=== PATIENT | female | born 1960 | race Caucasian/White ===

== ENCOUNTER 2019-09-16 07:43 | Observation (INO) | payer MEDICAID, SELFPAY ==
[2019-09-16] VITALS (43 sets, daily range): BP systolic 127–192; BP diastolic 51–105; PULSE 48–79; RESP 11–49; TEMP 36.1–36.8; O2SAT 85–100; BMI 31.1
--- NOTE | ~2019-09-16 | US_ITS ---
EXAMINATION: US abdomen complete DATE: 09/16/2019 15:59 INDICATION: Epigastric abdominal pain. TECHNIQUE: Multiple grayscale and Doppler ultrasound images of the abdomen were obtained. COMPARISON: CT abdomen and pelvis 09/16/2019 FINDINGS: The visualized portions of the head, body, and tail of the pancreas are normal. Abdominal a lilliana is normal in caliber. Inferior vena cava is normal. The liver is normal without focal lesion. Th ere is normal flow in main portal vein. The gallbladder is absent. The common duct is normal and sandy ures 7 mm. The kidneys are normal in size. There are cysts in the right kidney measuring up to 1.7 cm . The spleen is normal in size. There is a 1.7 cm isoechoic mass in the spleen. IMPRESSION: 1. 1.7 cm mass in the spleen, most likely a benign mass such as granulomatous disease or hemangioma. Reviewed, dictated and finalized at location A. IMPRESSION: 1. 1.7 cm mass in the spleen, most likely a benign mass such as granulomatous d isease or hemangioma.
--- NOTE | ~2019-09-16 | XR_ITS ---
XR chest 1V portable DATE: 09/16/2019 09:20 INDICATION: Cough, shortness of breath, weakness TECHNIQUE: Portable upright AP chest on 09/16/2019 at 0921 hours COMPARISON: 06/26/2014 portable AP chest FINDINGS: Normal heart size. No pulmonary vascular congestion or pleural effusion is evident. No pneumothorax. There is suggestion of mild infiltrate or atelectasis in the lower lung zones. Removal of right Port-A-Cath catheter since 06/1999. Included skeletal structures are unremarkable. IMPRESSION: Mild infiltrate or atelectasis is suggested in the lower lung zones Reviewed, dictated and finalized at location A.
--- NOTE | ~2019-09-16 | CT_ITS ---
EXAMINATION: CTA chest abdomen pelvis DATE: 09/16/2019 09:37 INDICATION: Chest and epigastric/upper abdominal pain. Chest tightness. Shortness of breath. History of heart attack. Nausea, vomiting, diarrhea. TECHNIQUE: Computed tomography (CT) of the chest, abdomen, and pelvis was performed with 100 cc Omnip aque 350 intravenous contrast. Automated exposure control and iterative reconstruction technique were employed. Exam dose: 814.95 mGy-cm total exam DLP. COMPARISON: 09/16/2019 portable AP chest FINDINGS: CHEST CT: There is thoracic aortic calcification but no evidence of aneurysm or dissection. There is no evidence of pulmonary embolism. Normal heart size. No pericardial or pleural effusion. No hilar or mediastinal mass lesion or lymphadenopathy. Included thyroid gland appears normal. Moderate emphysematous changes are noted. There is minimal atelectasis in the lower lobes primarily. No pulmonary consolidation or suspicious p ulmonary mass lesion is evident. There is a small sliding hiatal hernia. ABDOMEN/PELVIS CT: Status post cholecystectomy. No bile duct or pancreatic duct dilatation. No hepatic space-occupying mass lesion. 1.5 x 1.9 cm hypoattenuating lesion of the spleen. Splenic size is within normal limits. No pancreati c mass lesion or calcification. 1.9 cm rounded mass of the lateral limb of the left adrenal gland. If there is no history of primary malignancy, this is likely an adrenal adenoma; adrenal metastasis is not excluded. Normal right adren al gland.. There are 2 right renal cysts measuring up to 1.8 cm maximal dimension. Approximately 6 x 9 mm left renal pelvic calculus with attenuation of 1013 Hounsfield units. There is atherosclerotic calcification of the abdominal aorta but no evidence of aneurysm or dissecti on. There is narrowing of the right external iliac artery and the right common femoral artery is occluded and reconstituted by collaterals. No intraperitoneal or retroperitoneal or pelvic mass lesion or adenopathy or ascites. The uterus, adnexal areas and urinary bladder are unremarkable. Normal appendix. Minimal diverticulosis of the left colon; no CT evidence of diverticulitis. No bowel obstruction, bowel wall thickening, pneumatosis or intraperitoneal free air. Small fat-containing umbilical hernia. Prominent degenerative disc disease at C5-6 and C6-7. Mild likely chronic compression fracture deformities of T6, T9 and T11. Degenerative disc disease at L5-S1. 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 Reviewed, dictated and finalized at location A. IMPRESSION: Emphysema Small sliding hiatal hernia Status post cholecystectomy Nonspecific 1.5 x 1.9 cm hypoattenuating lesion of the spleen, likely benign 1.9 cm mass of left adrenal gland Right renal cysts, largest 1.8 cm 6 x 9 mm left renal pelvic calculus Narrowing of right external iliac artery and occlusion of right common iliac ar [place], with reconstitution by collateral flow Minimal diverticulosis of left colon
--- NOTE | ~2019-09-16 | NM_ITS ---
EXAMINATION: NM fran stress w perfusion DATE: 09/19/2019 12:36 INDICATION: Chest pain. TECHNIQUE: Rest images were obtained following intravenous administration of 8.9 mCi Tc99m tetrofosmi n (Myoview). The patient was infused intravenously with Lexiscan (regadenoson). Then, 27.8 mCi Tc99m tetrofosmin (Myoview) was administered intravenously, and stress images were obtained. Data was recon structed into short axis and horizontal and vertical long axis SPECT images. Gated SPECT images were also obtained. COMPARISON: Chest CT 09/16/2019 FINDINGS: There is a small, mild, fixed perfusion defect involving apical lateral segment of left maxim tricle, consistent with infarct. No significant reversible component to suggest ischemia. There is no segmental wall motion abnormality. Left ventricular ejection fraction measures 68%. IMPRESSION: 1. Small area of mild infarct involving apical lateral segment of left ventricle. 2. Normal left ventricular ejection fraction measuring 68%. Reviewed, dictated and finalized at location A. IMPRESSION: 1. Small area of mild infarct involving apical lateral segment of left ventricl e. 2. Normal left ventricular ejection fraction measuring 68%.
--- NOTE | 2019-09-16 07:58 | ECG_ITS ---
Measurements Intervals [place] Rate: 54 P: 9 AL: 144 QRS: 2 QRSD: 84 T: 46 QT: 469 QTc: 445 Interpretive Statements SINUS BRADYCARDIA CANNOT RULE OUT SEPTAL INFARCT, AGE INDETERMINATE BORDERLINE ST ABNORMALITY- ANTEROLATERAL LEADS ABNORMAL ECG Electronically Signed On 09-16-2019 8:25:49 CDT by Afshin Patel D.O.
[2019-09-16 08:09] LABS: Basophils Percent Auto 0.2 % (0.2-1.2); Hematocrit 36.8 % (37.0-47.0); Hemoglobin 13.2 g/dL (12.0-15.0); Immature Granulocyte Absolute 0.05 K/mm3 (0.00-0.031); Immature Granulocyte Percent A 0.5 % (0-0.5); Lymphocytes Absolute Auto 0.99 K/mm3 (0.9-3.2); Lymphocytes Percent Auto 10.6 % (18.3-44.2); Mean Corpuscular HGB Conc 35.9 g/dl (32-36); Mean Corpuscular Hemoglobin 31.6 pg (26-34); Monocytes Absolute Auto 0.4 K/mm3 (0.1-0.6); Monocytes Percent Auto 4.3 % (2.6-8.5); Neutrophils Absolute Auto 7.8 K/mm3 (1.3-6.7); Neutrophils Percent Auto 84.4 % (45.5-73.1); Platelet Count Result 214 k/mm3 (150-375); Red Blood Count 4.18 M/mm3 (4.2-5.4); Red Cell Distribution Width 12.5 % (11.5-14.5); White Blood Count 9.3 K/mm3 (4.5-10.0)
[2019-09-16 08:20] LABS: Add Urine Microscopic? YES; Amorphous Sediment Urine Few; Appearance Urine Cloudy (Clear); Bacteria Urine Trace /hpf; Bilirubin Urine Negative (Negative); Blood Urine 2+ (Negative); Color Urine Yellow (Yellow); Glucose Urine UA Negative (Negative); Ketones Urine Negative (Negative); Leukocyte Esterase Ur 3+ LEU/UL (Negative); Mucus Urine Few /lpf; Nitrate Urine Negative (Negative); Protein Urine 1+ mg/dL (Negative); RBC Urine >75 /hpf (0-2); Specific Grav Ur 1.015 (1.001-1.035); Squamous Epithelial Cell Urine Few /hpf (Few); Urobilinogen Urine Negative mg/dL (<2.0); WBC Urine >75 /hpf
--- NOTE | 2019-09-16 08:24 | ED.ABDPAIN ---
HPI - Abdominal Pain General Chief Complaint: Abdominal Pain Stated Complaint: sob, chest pain, abd pain Time Seen by Provider: 09/16/19 08:05 Source: patient Mode of arrival: ambulatory Limitations: no limitations History of Present Illness HPI narrative: This patient is a 59 year old female who presents for evaluation of abdominal pain, nausea, vomiting and diarrhea. She states starting at 10 pm last night she develop upper abdominal pain, nausea, vomiting and diarrhea. She also reports at that time she had mid chest pain ,nonradiating. Her chest pain has resolved but she continues to have constant abdominal pain with nausea and vomiting. She is concerned she may be having a heart attack as she had similar symptoms 5 years ago. She has associated weakness and dizziness. She denies fever or chills. She also states she is having difficulty breathing. MD elicited complaint: abdominal pain Location: epigastric, LUQ and RUQ Exacerbating factors: nothing Relieving factors: nothing Associated symptoms: nausea, vomiting and diarrhea Related Data Home Medications Medication Instructions Recorded Confirmed alprazolam 1 mg PO BID PRN 09/16/19 09/16/19 anastrozole 1 mg PO DAILY 09/16/19 09/16/19 ascorbic acid (vitamin C) [Vitamin 1 g PO DAILY 09/16/19 09/16/19 C] aspirin 81 mg PO DAILY 09/16/19 09/16/19 bupropion HCl 150 mg PO DAILY 09/16/19 09/16/19 carvedilol 12.5 mg PO DAILY 09/16/19 09/16/19 ergocalciferol (vitamin D2) 50,000 unit PO WEEKLY 09/16/19 09/16/19 [Vitamin D2] hydrocodone-acetaminophen 1 tablet PO Q6-8H PRN 09/16/19 09/16/19 rosuvastatin 20 mg PO DAILY 09/16/19 09/16/19 Allergies Allergy/AdvReac Type Severity Reaction Status Date / Time No Known Allergies Allergy Verified 09/16/19 14:11 Review of Systems Review of Systems: All systems reviewed & are unremarkable except as noted in HPI and below Constitutional: Constitutional: Denies chills, Denies fever(s) and Reports weakness ENT: Reports dizziness Cardiovascular: Cardiovascular: Reports chest pain and Denies radiating jaw, neck or arm pain Respiratory: Respiratory: Denies cough, Reports dyspnea and Denies wheezing Gastrointestinal: Gastrointestinal: Reports abdominal pain, Reports diarrhea, Reports nausea and Reports vomiting Musculoskeletal: Musculoskeletal: Denies back pain [facility] Past Medical History Medical History (Updated 09/16/19 @ 17:37 by Megan Michaels MD) Breast cancer Diabetes mellitus Hypertension Myocardial infarction Surgical History Surgical History (Updated 09/16/19 @ 08:27 by Megan Michaels MD) H/O heart artery stent Hx of cholecystectomy Social History Social History (Updated 09/16/19 @ 08:28 by Megan Michaels MD) Smoking packs per day: 1 Smoking cigarettes per day: 20.0 Smoking status: Current every day smoker Alcohol intake: never Substance use: never Gender identity (if verbalized by the patient): Female Sexual Orientation (if Verbalized by the Patient): Straight or Heterosexual Spiritual care concerns: No Exam Const: General: alert Orientation/consciousness: patient oriented x3 Other: moderate distress holding her abdomen HENMT: Head: normocephalic and atraumatic Face and sinus: sinuses nontender and face symmetric Mouth: Yes Normal oral and palatal mucosa present, Yes lip normal and Yes tongue normal Teeth and gingiva: dentition normal Throat: posterior oropharynx normal Eyes: Pupils: Equal, round and reactive pupils present EOM: EOMs intact bilaterally Chest: Chest palpation & inspection: normal inspection of the chest Resp: Effort & Inspection: normal respiratory effort Auscultation: clear to auscultation bilaterally Cardio: Rate: bradycardic Rhythm: regular rhythm Heart sounds: no murmurs GI: GI Palp: Yes Soft to palpation, Yes Tenderness to palpation present (GI) (diffuse), No Guarding due to palpation present (GI), No Rigid due to palpation and N
[2019-09-16] MEDS: PANTOPRAZOLE SODIUM IV 40 MG VIAL IV PUSH (08:30)
[2019-09-16] MEDS: ONDANSETRON INJ 4 MG/2 ML VIAL IV PUSH ×2 (08:30→19:54)
[2019-09-16] MEDS: MORPHINE SULFATE 4 MG/ML INJ IV PUSH (08:30)
[2019-09-16 08:36] LABS: Alveolar/Arterial O2 Gradient 19.2 mmHg; Base Excess ABG 4.2 mEq/l (+/-2.0); Carboxyhemoglobin 1.1 % THb (0-2.0); Fractional Inspired Oxygen 21 %; HCO3 ABG 24.3 mEq/l (22.0-26.0); Methemoglobin ABG 0.2 %THb (0-1.5); Oxygen Content ABG 18.4 %vol (16.0-22.0); Oxygen Saturation ABG 98.5 % (95.0-100.0); Oxyhemoglobin 96.3 % THb (90.0-100.0); PCO2 ABG 24.8 mmHg (35.0-45.0); PO2 ABG 100.8 mmHg (80.0-100.0); Reduced Hemoglobin 2.4 %THb (0-5.0); Total Hemoglobin 13.5 g/dL (12.0-18.0)
[2019-09-16 08:38] LABS: Device ROOM AIR; Modified Allen's Test Pass; Site Drawn RIGHT RADIAL; pH ABG 7.609 (7.350-7.450)
[2019-09-16 08:59] LABS: Lactic Acid Reflex 2.4 mmol/L (0.7-2.1)
[2019-09-16 09:00] LABS: Alanine Aminotransferase 21 U/L (4-35); Albumin Level 4.8 g/dL (3.5-5.1); Alkaline Phosphatase 104 U/L (38-126); Aspartate Amino Transferase 25 U/L (14-36); Bilirubin,Total 0.6 mg/dL (0.2-1.3); Blood Urea Nitrogen 9 mg/dL (7-17); Calcium 10.5 mg/dL (8.4-10.2); Carbon Dioxide 24 mmol/L (22-30); Chloride 101 mmol/L (98-107); Estimated CRCL calculation 87 ml/min; Estimated Glomerular Filt Rate > 60; Glucose 181 mg/dL (65-105); Lipase 22 U/L (23-300); Potassium 3.8 mmol/L (3.4-5.0); Sodium 137 mmol/L (137-145)
[2019-09-16 09:11] LABS: Troponin I 0.016 ng/mL (0.000-0.034)
[2019-09-16] MEDS: METOCLOPRAMIDE HCL INJ 10 MG/2 ML VIAL IV PUSH (11:42)
[2019-09-16 11:44] LABS: Reflex Lactic Acid Yes or No Add Lactic
[2019-09-16 12:37] LABS: Lactic Acid 1.2 mmol/L (0.7-2.1)
[2019-09-16 12:57] LABS: Troponin I 0.026 ng/mL (0.000-0.034)
--- NOTE | 2019-09-16 13:55 | ADMGEN ---
This patient, Maria De Jesus Crum, was admitted to IMU Room 204-01. Patient/family oriented to hospital policies and general routines including ID bracelet, bed and alarms, visiting hours, pain management, procedures, bathroom and other care routines, personal items, smoking policy, room service/diet, and visiting hours. Valuables list has been completed. Information on how to activate the Rapid Response Team has been discussed. Patient/Family are encouraged to report perceived risks to care and to ask questions if they do not understand what they are told or what they should do.
[2019-09-16] MEDS: LACTATED RINGERS 1,000 ML 125 ML IV CONT ×2 (14:34→22:51)
--- NOTE | 2019-09-16 16:33 | PM.IMHP ---
H&P: HPI History of Present Illness Chief complaint: chest pain,nausea,vomiting Narrative: Maria De Jesus Crum is a 59 year old female with past medical history ofhypertension diabetes coronary artery disease patient presented the complain of abdominal pain chest pain nausea or vomiting and diarrhea described as a or tree with some mucus but no bleeding, patient states when she had her last NC her presentation was similar and this what brought her to the hospital, currently patient still complains right upper quadrant epigastric pain but denies any chest pain currently denies any fever or chills nausea or vomiting, patient had CTA scan of the abdomen, and chest there was no significant pathology to further evaluate patient also had ultrasound of abdomen did not show any pathology, patient 2 sets of cardiac enzymes are negative will continue to trend the tropes, to further evaluate will do the Lexiscan in the morning and further recommendation to follow Review of Systems Review of Systems: All systems reviewed & are unremarkable except as noted in HPI and below PMFSH Past Medical History Medical History (Updated 09/16/19 @ 16:45 by Teofilo Peterson MD) Breast cancer Diabetes mellitus Hypertension Myocardial infarction Surgical History Surgical History (Updated 09/16/19 @ 08:27 by Megan Michaels MD) H/O heart artery stent Hx of cholecystectomy Social History Social History (Updated 09/16/19 @ 08:28 by Megan Michaels MD) Smoking packs per day: 1 Smoking cigarettes per day: 20.0 Smoking status: Current every day smoker Alcohol intake: never Substance use: never Gender identity (if verbalized by the patient): Female Sexual Orientation (if Verbalized by the Patient): Straight or Heterosexual Spiritual care concerns: No Meds Home Medications and Allergies Home Medications Medication Instructions Recorded Confirmed Type alprazolam 1 mg PO BID PRN 09/16/19 09/16/19 History anastrozole 1 mg PO DAILY 09/16/19 09/16/19 History ascorbic acid (vitamin C) [Vitamin 1 g PO DAILY 09/16/19 09/16/19 History C] aspirin 81 mg PO DAILY 09/16/19 09/16/19 History bupropion HCl 150 mg PO DAILY 09/16/19 09/16/19 History carvedilol 12.5 mg PO DAILY 09/16/19 09/16/19 History ergocalciferol (vitamin D2) 50,000 unit PO WEEKLY 09/16/19 09/16/19 History [Vitamin D2] hydrocodone-acetaminophen 1 tablet PO Q6-8H PRN 09/16/19 09/16/19 History rosuvastatin 20 mg PO DAILY 09/16/19 09/16/19 History Allergies Allergy/AdvReac Type Severity Reaction Status Date / Time No Known Allergies Allergy Verified 09/16/19 14:11 Vital Signs Vital Signs - 24 hr 09/16/19 07:54 09/16/19 07:55 09/16/19 08:00 Temperature 98.2 F Pulse Rate 55 L 55 L 54 L Respiratory Rate 21 H 28 H 29 H Blood Pressure 191/75 H Pulse Oximetry 100 100 100 09/16/19 08:15 09/16/19 08:18 09/16/19 08:30 Temperature Pulse Rate 53 L 55 L 53 L Respiratory Rate 17 17 24 H Blood Pressure 153/105 H Pulse Oximetry 09/16/19 08:32 09/16/19 08:45 09/16/19 08:47 Temperature Pulse Rate 56 L 52 L 56 L Respiratory Rate 14 16 21 H Blood Pressure 192/61 H 155/54 H Pulse Oximetry 09/16/19 09:00 09/16/19 09:02 09/16/19 09:15 Temperature Pulse Rate 53 L 52 L 57 L Respiratory Rate 11 L 17 24 H Blood Pressure 175/54 H Pulse Oximetry 90 87 L 85 L 09/16/19 09:17 09/16/19 09:41 09/16/19 09:42 Temperature Pulse Rate 59 L 51 L 54 L Respiratory Rate 19 13 15 Blood Pressure 152/65 H 162/59 H Pulse Oximetry 93 100 100 09/16/19 09:45 09/16/19 09:47 09/16/19 10:00 Temperature Pulse Rate 57 L 50 L 53 L Respiratory Rate 18 22 H 13 Blood Pressure Pulse Oximetry 98 100 97 09/16/19 10:02 09/16/19 10:15 09/16/19 10:17 Temperature Pulse Rate 56 L 52 L 51 L Respiratory Rate 14 12 13 Blood Pressure 171/59 H 168/59 H Pulse Oximetry 97 94 96 09/16/19 10:30 09/16/19 10:32 09/16/19 10:45 Temperature
[2019-09-17] VITALS (14 sets, daily range): BP systolic 152–164; BP diastolic 43–62; PULSE 51–72; RESP 16–20; TEMP 36–37.2; O2SAT 94–99
--- NOTE | 2019-09-17 | ECHO_ITS ---
Patient Info Name: Maria De Jesus Crum Age: 59 years : 1960 Gender: Female Ht: 63 in Wt: 177 lbs BSA: 1.92 m2 HR: 48 bpm BP: 152 / 46 mmHg Heart Rhythm: Bradycardia Technical Quality: Good Exam Date: 09/17/2019 1:07 PM Exam Location: [facility] Pulmonary Exam Room: [facility] Patient Status: Inpatient Admit Date: 09/16/2019 Staff Ordering Physician: Tae Costa MD Homicide Investigator: Lucretia Reveles RDCS Attending Provider: Teofilo Peterson MD Referring Physician: Igor BLANK; Exam Type: CA echo doppler color flow Study Info Indications - bradycardia cad Complete two-dimensional, color flow and Doppler transthoracic echocardiogram is performed. Summary 1. Left ventricular chamber dimension is normal. 2. Left ventricular systolic function is normal, estimated at 65-70%. 3. There is mildly increased left ventricular wall thickness. 4. Left ventricular septal wall motion is normal. 5. The left ventricular diastolic function is abnormal. 6. Left atrial chamber dimension is mildly enlarged. 7. There is mild aortic valve sclerosis. 8. There is mild aortic valve regurgitation. 9. There is mild mitral valve regurgitation. 10. There is mild tricuspid valve regurgitation. 11. Mild pulmonary hypertension, estimated pulmonary arterial systolic pressure is 41 mmHg. Left Ventricle Left ventricular chamber dimension is normal. Left ventricular systolic function is normal, estimated at 65-70%. There is mildly increased left ventricular wall thickness. Left ventricular septal wall motion is normal. The left ventricular diastolic function is abnormal. Right Ventricle Right ventricular chamber dimension is normal. Right ventricular systolic function is normal. Left Atria Left atrial chamber dimension is mildly enlarged. Right Atria Right atrial chamber dimension is normal. Atrial Septum Intact interatrial septum visualized by color flow imaging. Aortic Valve The aortic valve is trileaflet. There is mild aortic valve sclerosis. There is no aortic valve stenosis. There is mild aortic valve regurgitation. Pulmonic Valve The pulmonic valve is normal. There is no pulmonic valve stenosis. There is trace pulmonic regurgitation. Mitral Valve The mitral valve has thickened leaflets. There is no mitral valve stenosis. There is mild mitral valve regurgitation. Tricuspid Valve The tricuspid valve leaflets are normal. There is no significant tricuspid valve stenosis. There is mild tricuspid valve regurgitation. Mild pulmonary hypertension, estimated pulmonary arterial systolic pressure is 41 mmHg. Pericardium/Pleural The pericardium appears normal. There is trivial pericardial effusion. Inferior Vena Cava Dilated inferior vena cava with <50% collapse upon inspiration consistent with elevated right atrial pressure, 10 mmHg. Aorta The aortic root size at the sinus of Valsalva is normal. The prox ascending aorta size is normal. Left Ventricular Outflow Tract Name Value Normal LVOT 2D LVOT Diameter 2.0 cm LVOT Doppler LVOT Peak Gradient 4 mmHg
[2019-09-17 05:38] LABS: Hematocrit 33.3 % (37.0-47.0); Hemoglobin 11.7 g/dL (12.0-15.0); Mean Corpuscular HGB Conc 35.1 g/dl (32-36); Mean Corpuscular Hemoglobin 31.9 pg (26-34); Mean Corpuscular Volume 90.7 fl (80-100); Mean Platelet Volume 10.1 fl (7.4-10.4); Platelet Count Result 197 k/mm3 (150-375); Red Blood Count 3.67 M/mm3 (4.2-5.4); Red Cell Distribution Width 12.7 % (11.5-14.5); White Blood Count 7.3 K/mm3 (4.5-10.0)
[2019-09-17 05:56] LABS: Alanine Aminotransferase 17 U/L (4-35); Albumin Level 4.1 g/dL (3.5-5.1); Alkaline Phosphatase 75 U/L (38-126); Aspartate Amino Transferase 26 U/L (14-36); Bilirubin,Total 0.6 mg/dL (0.2-1.3); Blood Urea Nitrogen 9 mg/dL (7-17); Calcium 9.7 mg/dL (8.4-10.2); Carbon Dioxide 28 mmol/L (22-30); Chloride 99 mmol/L (98-107); Estimated CRCL calculation 100 ml/min; Estimated Glomerular Filt Rate > 60; Glucose 127 mg/dL (65-105); Potassium 3.1 mmol/L (3.4-5.0); Sodium 137 mmol/L (137-145)
[2019-09-17] MEDS: LACTATED RINGERS 1,000 ML 125 ML IV CONT ×2 (06:44→17:12)
[2019-09-17] MEDS: ASCORBIC ACID 500 MG TABLET 1000 MG PO (08:57)
[2019-09-17] MEDS: ROSUVASTATIN 10 MG TABLET 20 MG PO (08:57)
[2019-09-17] MEDS: PANTOPRAZOLE SODIUM IV 40 MG VIAL IV PUSH (08:58)
[2019-09-17] MEDS: ANASTROZOLE (*CHEMO) 1 MG TABLET PO (08:58)
[2019-09-17] MEDS: buPROPion HCL XL (24 HR) 150 MG TABCR PO (08:58)
[2019-09-17] MEDS: ASPIRIN 81 MG CHEWABLE TABLET PO (08:58)
--- NOTE | 2019-09-17 10:44 | PM.DS ---
DS: Admitting Diagnosis Admitting Diagnosis Admitting Diagnosis: Chest pain, unspecified DS: Summary Time Spent with Patient Time attestation: Total time spent providing and/or coordinating discharge services: DS: Data Data Completed and Pending Labs on day of discharge: Labs from last 24 hours 09/17/19 09/17/19 09/16/19 04:36 04:36 16:31 WBC 7.3 RBC 3.67 L Hgb 11.7 L Hct 33.3 L MCV 90.7 MCH 31.9 MCHC 35.1 RDW 12.7 Plt Count 197 MPV 10.1 Sodium 137 Potassium 3.1 L Chloride 99 Carbon Dioxide 28 BUN 9 Creatinine 0.50 L Estim Creat Clear Calc 100 Estimated GFR > 60 Glucose 127 H Lactic Acid Calcium 9.7 Total Bilirubin 0.6 AST 26 ALT 17 Alkaline Phosphatase 75 Troponin I 0.020 D Total Protein 7.0 Albumin 4.1 09/16/19 09/16/19 12:26 12:17 WBC RBC Hgb Hct MCV MCH MCHC RDW Plt Count MPV Sodium Potassium Chloride Carbon Dioxide BUN Creatinine Estim Creat Clear Calc Estimated GFR Glucose Lactic Acid 1.2 Calcium Total Bilirubin AST ALT Alkaline Phosphatase Troponin I 0.026 D Total Protein Albumin Discharge Plan Discharge Attending physician on discharge: Teofilo Peterson Discharging Clinician: Teofilo Peterson Patient Disposition: Home, Self-Care Activity: as tolerated Diet: bland Discharge Instructions: Patient to follow up with her primary care provider as soon as possible. patient is instructed if any symptoms redevelop to go to nearest ER Patient Instructions: Antibiotic Form, How to Stop Smoking (GEN), Cigarette Smoking and Your Health (GEN) Stand Alone Forms: General Discharge Information Discharge Medications: Continued anastrozole 1 mg tablet 1 mg PO DAILY RF: 0 bupropion HCl 150 mg tablet sustained-release 12 hr 150 mg PO DAILY RF: 0 ascorbic acid (vitamin C) [Vitamin C] 1,000 mg Tablet 1 g PO DAILY RF: 0 carvedilol 12.5 mg tablet 12.5 mg PO DAILY RF: 0 alprazolam 1 mg tablet 1 mg PO BID PRN (Reason: Anxiety) RF: 0 hydrocodone-acetaminophen 7.5-325 mg tablet 1 tablet PO Q6-8H PRN (Reason: Pain) RF: 0 aspirin 81 mg Tablet,Chewable 81 mg PO DAILY RF: 0 ergocalciferol (vitamin D2) [Vitamin D2] 1,250 mcg (50,000 unit) capsule 50,000 unit PO WEEKLY RF: 0 rosuvastatin 20 mg Tablet 20 mg PO DAILY RF: 0 Date of admission: 09/16/19 12:51 Primary Care Provider: Tim Whitten Admitting Provider: Teofilo Peterson Attending physician on admission: Teofilo Peterson Condition: Stable Quality VTE Prophylaxis VTE prophylaxis: mechanical ordered
[2019-09-17] MEDS: POTASSIUM CHLORIDE 20 MEQ TABLET 40 MEQ PO (10:52)
[2019-09-17] MEDS: ALPRAZOLAM 0.5 MG TABLET 1 MG PO ×2 (10:53→20:08)
--- NOTE | 2019-09-17 12:41 | PM.CNCAR ---
Assessment and Plan Assessment and plan (1) Sinus bradycardia: Code(s): R00.1 - Bradycardia, unspecified Status: Acute Assessment and Plan: Asymptomatic. Will resume her carvedilol but at a lower dose for now at 6.25 mg p.o. b.i.d.. Likely go back up to 12.5 mg p.o. b.i.d. when able. Some of her mild bradycardia may be related to her abdominal pain and vagal reaction from being nauseous and vomiting. Will check a lipid panel. Will also check a 2D echocardiogram with Doppler. (2) Abdominal pain: Code(s): R10.9 - Unspecified abdominal pain Status: Acute Assessment and Plan: She has a urinalysis showing 3+ leukocyte esterase and greater than 75 wbc's. Is also cloudy. She also has symptoms of dysuria and she states her urine is foul smelling. I suspect her abdominal symptoms are related to a urinary tract infection. However, will defer treatment and further workup to Dr. Peterson. Cultures are pending (3) CAD (coronary artery disease): Code(s): I25.10 - Atherosclerotic heart disease of [place] coronary artery without angina pectoris Status: Acute Assessment and Plan: Continue aspirin, statin, beta-tyson (4) Hypertension associated with diabetes: Code(s): E11.59 - Type 2 diabetes mellitus with other circulatory complications; I10 - Essential (primary) hypertension Status: Acute Assessment and Plan: Above goal (5) Hyperlipidemia associated with type 2 diabetes mellitus: Code(s): E11.69 - Type 2 diabetes mellitus with other specified complication; E78.5 - Hyperlipidemia, unspecified Status: Acute Assessment and Plan: On statin History of Present Illness History of Present Illness Consult date/time: 09/17/19 12:41 Requesting physician: Teofilo Peterson MD Consult reason: Other (Bradycardia) Reason For Visit: chest pain,nausea,vomiting Narrative: Date of service 09/17/2019 History reason for consultation bradycardia Requesting provider: Dr. Peterson History: Patient is 59-year-old female with history of diabetes, hypertension, coronary disease who came to the hospital because abdominal pain. She did not have chest pain. She insists that she did not have chest pain. Her symptoms however are somewhat similar to her myocardial infarction discomfort in 2013. The differences though at that time she had significant shortness breath as well as chest pain but she did have associated abdominal pain also. This time she simply states that she has abdominal pain that has been present since eating a couple of days ago. She has had some nausea, vomiting as well as some diarrhea. Symptoms have continued and while on awake overnight monitor patient has been noted to be bradycardic. EKG performed yesterday also shows mild sinus bradycardia. Cardiology consultation was therefore requested. Patient has denied any exertional symptoms. She again states that she does not have any chest pain, shortness breath, syncope, presyncope, paroxysmal nocturnal dyspnea, orthopnea, edema or palpitations. She however does describe dysuria and a foul smelling urine to her and she has a UA which is consistent with a urinary tract infection given 3+ leukocyte esterase and greater than 75 white blood cells. Her abdominal discomfort has been constantly there over the past couple of days. She is not symptomatic with her bradycardia which was noticed on her awake overnight monitor. She has no associated dizziness or lightheadedness. Review of Systems Review of Systems: All systems reviewed & are unremarkable except as noted in HPI and below Constitutional: Constitutional: Denies weakness Eyes: Eyes: Denies blurry vision ENT: Denies Normal hearing present Cardiovascular: Cardiovascular: Denies chest pain Respiratory: Respiratory: Denies dyspnea Gastrointestinal: Gastrointestinal: Reports abdominal pain Genitourinary: Genitourinary: Reports dysuria Musculoskeletal: Musculoske
[2019-09-17 14:41] LABS: Cholesterol 122 mg/dL (0-200); HDL Direct 33 mg/dL; Triglycerides 105 mg/dL (<150)
[2019-09-17 14:52] LABS: LDL Cholesterol Direct 70 mg/dL
--- NOTE | 2019-09-17 17:53 | PM.IMPN ---
Progress Note: A&P Assessment and Plan (1) Chest pain: Code(s): R07.9 - Chest pain, unspecified Status: Acute Assessment and Plan: 09/17/19 17:53 Maria De Jesus Crum is a 59 year old female with past medical history ofhypertension diabetes coronary artery disease patient presented the complain of abdominal pain chest pain nausea or vomiting and diarrhea described as a or tree with some mucus but no bleeding, patient states when she had her last PA her presentation was similar and this what brought her to the hospital, currently patient still complains right upper quadrant epigastric pain but denies any chest pain currently denies any fever or chills nausea or vomiting, patient had CTA scan of the abdomen, and chest there was no significant pathology to further evaluate patient also had ultrasound of abdomen did not show any pathology, patient 2 sets of cardiac enzymes were negative will continue to trend the tropes, patient is taking Coreg 12.5mg daily and her HR is in low 50 this may have caused nuasea and chest pain, patient is seen by can line operator and started the patient on lower dose of Coreg to 6.25mg, in regards to abdominal pain which in RUQ and her Ct of abdomen and US are negative any pathology however her urine is suspicious of UTI as patient c/o dysyruia and frequency of urination, will start on ceftriaoxan and follow up on urine culture. (2) Abdominal pain: Code(s): R10.9 - Unspecified abdominal pain Status: Acute Assessment and Plan: Plan is above Subjective Date/time seen: 09/17/19 17:53 Maria De Jesus Crum is a 59 year old female with past medical history ofhypertension diabetes coronary artery disease patient presented the complain of abdominal pain chest pain nausea or vomiting and diarrhea described as a or tree with some mucus but no bleeding, patient states when she had her last PA her presentation was similar and this what brought her to the hospital, currently patient still complains right upper quadrant epigastric pain but denies any chest pain currently denies any fever or chills nausea or vomiting, patient had CTA scan of the abdomen, and chest there was no significant pathology to further evaluate patient also had ultrasound of abdomen did not show any pathology, patient 2 sets of cardiac enzymes were negative will continue to trend the tropes, patient is taking Coreg 12.5mg daily and her HR is in low 50 this may have caused nuasea and chest pain, patient is seen by can line operator and started the patient on lower dose of Coreg to 6.25mg, in regards to abdominal pain which in RUQ and her Ct of abdomen and US are negative any pathology however her urine is suspicious of UTI as patient c/o dysyruia and frequency of urination, will start on ceftriaoxan and follow up on urine culture. Review of Systems Review of Systems: All systems reviewed & are unremarkable except as noted in HPI and below Exam Const: General: comfortable and no acute distress HENMT: General nose exam: Normal nares present Mouth: Yes moist mucous membranes Eyes: General: appearance normal, both eyes and all related structures Sclera: sclerae normal Neck: Neck: supple Resp: Effort & Inspection: normal respiratory effort Auscultation: clear to auscultation bilaterally Cardio: Rate: regular rate Rhythm: regular rhythm GI: Auscultation: normal bowel sounds Skin: General skin exam: normal color Neuro: Speech: normal speech Sensory Exam: normal sensation Extrem: General: normal to inspection Psych: Affect: Anxious affect present Objective Data Vital Signs Vital Signs: Vital Signs - 24 hr 09/16/19 18:00 09/16/19 19:41 09/16/19 20:00 Temperature 97 F L Pulse Rate 52 L 48 L 50 L Respiratory Rate 18 Blood Pressure 159/51 H Pulse Oximetry 100 09/16/19 21:58 09/16/19 23:48 09/17/19 00:00 Temperature 97 F L Pulse Rate 51 L 49 L 66 Respiratory Rate 16 Blood Pressure 153/51 H Pulse Oximetry
[2019-09-17 18:50] LABS: Thyroid Stimulating Hormone 0.369 uIU/mL (0.465-4.680)
[2019-09-17] MEDS: carvediloL 6.25 MG TABLET PO (20:04)
[2019-09-17] MEDS: ONDANSETRON INJ 4 MG/2 ML VIAL IV PUSH (20:08)
[2019-09-18] VITALS (18 sets, daily range): BP systolic 164–192; BP diastolic 44–81; PULSE 50–65; RESP 16–20; TEMP 36.3–37.1; O2SAT 96–100
[2019-09-18] MEDS: LACTATED RINGERS 1,000 ML 125 ML IV CONT ×3 (01:07→17:41)
[2019-09-18] MEDS: ACETAMINOPHEN 325 MG TABLET 650 MG PO ×3 (01:29→17:40)
[2019-09-18] MEDS: ROSUVASTATIN 10 MG TABLET 20 MG PO (08:54)
[2019-09-18] MEDS: ALPRAZOLAM 0.5 MG TABLET 1 MG PO ×2 (08:54→20:48)
[2019-09-18] MEDS: ANASTROZOLE (*CHEMO) 1 MG TABLET PO (08:54)
[2019-09-18] MEDS: ASPIRIN 81 MG CHEWABLE TABLET PO (08:55)
[2019-09-18] MEDS: ASCORBIC ACID 500 MG TABLET 1000 MG PO (08:55)
[2019-09-18] MEDS: buPROPion HCL XL (24 HR) 150 MG TABCR PO (08:55)
[2019-09-18] MEDS: PANTOPRAZOLE SODIUM IV 40 MG VIAL IV PUSH (08:57)
[2019-09-18] MEDS: carvediloL 6.25 MG TABLET PO ×2 (09:54→11:25)
--- NOTE | 2019-09-18 10:53 | PM.PNCARD ---
Progress Note: A&P Assessment and Plan (1) Sinus bradycardia: Code(s): R00.1 - Bradycardia, unspecified Status: Acute Assessment and Plan: Asymptomatic. Will increase her carvedilol back up to 12.5 mg p.o. b.i.d.. Some of her mild bradycardia may be related to her abdominal pain and vagal reaction from being nauseous and vomiting. echo pending (2) Abdominal pain: Code(s): R10.9 - Unspecified abdominal pain Status: Acute Assessment and Plan: She has a urinalysis showing 3+ leukocyte esterase and greater than 75 wbc's. Is also cloudy. She also has symptoms of dysuria and she states her urine is foul smelling. I suspect her abdominal symptoms are related to a urinary tract infection. However, will defer treatment and further workup to Dr. Peterson. Given Rocephin yesterday Likely will stay till tomorrow for her stress test (3) CAD (coronary artery disease): Code(s): I25.10 - Atherosclerotic heart disease of [place] coronary artery without angina pectoris Status: Acute Assessment and Plan: Continue aspirin, statin, beta-tyson (4) Hypertension associated with diabetes: Code(s): E11.59 - Type 2 diabetes mellitus with other circulatory complications; I10 - Essential (primary) hypertension Status: Acute Assessment and Plan: Above goal (5) Hyperlipidemia associated with type 2 diabetes mellitus: Code(s): E11.69 - Type 2 diabetes mellitus with other specified complication; E78.5 - Hyperlipidemia, unspecified Status: Acute Assessment and Plan: On statin Subjective Date/time seen: 09/18/19 10:53 Interval history: chief complaint: Abdominal pain. Reason for consultation: Bradycardia Date of service 09/18/2019: Her abdominal pain is better. She has been initiated on antibiotics. No chest pain or shortness of breath. Anxious to go home. Review of Systems Review of Systems: All systems reviewed & are unremarkable except as noted in HPI and below Constitutional: Constitutional: Denies excessive sweating, Denies fatigue, Denies headache(s) and Denies weakness Eyes: Eyes: Denies blurry vision ENT: Denies Normal hearing present, Denies headache(s) and Denies neck pain Cardiovascular: Cardiovascular: Denies chest pain and Denies dyspnea Respiratory: Respiratory: Denies dyspnea Gastrointestinal: Gastrointestinal: Reports abdominal pain Genitourinary: Genitourinary: Reports dysuria Musculoskeletal: Musculoskeletal: Denies back pain, Denies neck pain and Denies numbness Integumentary/Breasts: Skin/Breast: Denies dry skin Neurologic: Denies Normal hearing present, Denies headache(s), Denies numbness and Denies weakness Psychiatric: Psychiatric: Denies anxiety Endocrine: Endocrine: Denies excessive sweating and Denies fatigue Hematologic/Lymphatic: Hematologic/Lymphatic: Denies easy bleeding Allergic/Immunologic: Allergic/Immunologic: Denies GI upset with certain foods Exam Narrative: Exam Narrative: Alert and oriented appears stated age Const: General: no acute distress HENMT: General nose exam: Normal nares present and no epistaxis Eyes: Sclera: sclerae normal Neck: Neck: supple and no JVD Chest: Other: No reproducible chest wall pain to palpation Resp: Auscultation: clear to auscultation bilaterally Cardio: Rate: bradycardic Rhythm: regular rhythm Heart sounds: no gallops Skin: General skin exam: normal color Neuro: Cranial nerves: No Normal hearing present Cognition (Neuro): normal cognition Speech: normal speech Extrem: General: normal to inspection Psych: Mental Status: mental status grossly normal Objective Data Vital Signs Vital Signs: Vital Signs - 24 hr 09/17/19 12:00 09/17/19 14:17 09/17/19 16:00 Temperature 36.0 C L 37.0 C Pulse Rate 58 L 58 L 71 Respiratory Rate 20 18 Blood Pressure 161/43 H 161/51 H Pulse Oximetry 99 94 09/17/19 18:27 09/17/19 20:00 09/17/19 20:
[2019-09-18 12:47] LABS: Hematocrit 38.6 % (37.0-47.0); Mean Corpuscular HGB Conc 36.3 g/dl (32-36); Mean Corpuscular Hemoglobin 31.7 pg (26-34); Mean Corpuscular Volume 87.3 fl (80-100); Mean Platelet Volume 9.9 fl (7.4-10.4); Platelet Count Result 221 k/mm3 (150-375); Red Blood Count 4.42 M/mm3 (4.2-5.4); Red Cell Distribution Width 12.2 % (11.5-14.5); White Blood Count 7.9 K/mm3 (4.5-10.0)
[2019-09-18 13:00] LABS: Blood Urea Nitrogen 6 mg/dL (7-17); Calcium 9.7 mg/dL (8.4-10.2); Carbon Dioxide 27 mmol/L (22-30); Chloride 95 mmol/L (98-107); Estimated CRCL calculation 103 ml/min; Estimated Glomerular Filt Rate > 60; Glucose 122 mg/dL (65-105); Potassium 3.2 mmol/L (3.4-5.0); Sodium 133 mmol/L (137-145)
--- NOTE | 2019-09-18 14:30 | PC.NURSE ---
Spoke with IMU nurse Chelsie during report about the patient's heart rate. She said that she spoke with Dr. Costa on 09/17/2019 about the patient's heart rate running in the low 50's and 40's. She said that he is aware and is not concerned at this time. Will continue to monitor.
--- NOTE | 2019-09-18 14:31 | PC.NURSE ---
This patient, Maria De Jesus Crum, was transferred to [facility] on 09/18/19 at 1431 via hospital bed. Personal belongings sent with patient. Belongings list checked and signed with receiving RN. Report given to WILMA Torres. Appropriate documentation sent with patient.
--- NOTE | 2019-09-18 14:48 | PC.NURSE ---
This patient, Maria De Jesus Crum, was received from IMU on 09/18/19 at 1435. Personal belongings list checked and signed. Patient/family oriented to unit policies and routines. Report received from WILMA Holguin.
--- NOTE | 2019-09-18 15:01 | PM.IMPN ---
Progress Note: A&P Assessment and Plan (1) Chest pain: Code(s): R07.9 - Chest pain, unspecified Status: Acute Assessment and Plan: 09/18/19 15:01 Maria De Jesus Crum is a 59 year old female with past medical history ofhypertension diabetes coronary artery disease patient presented the complain of abdominal pain chest pain nausea or vomiting and diarrhea described as a or tree with some mucus but no bleeding, patient states when she had her last CT her presentation was similar and this what brought her to the hospital, currently patient still complains right upper quadrant epigastric pain but denies any chest pain currently denies any fever or chills nausea or vomiting, patient had CTA scan of the abdomen, and chest there was no significant pathology to further evaluate patient also had ultrasound of abdomen did not show any pathology, patient 2 sets of cardiac enzymes were negative will continue to trend the tropes, patient is taking Coreg 12.5mg daily and her HR is in low 50 this may have caused nuasea and chest pain, patient is seen by [employer] and started the patient on lower dose of Coreg to 6.25mg, in regards to abdominal pain which in RUQ and her Ct of abdomen and US are negative any pathology however her urine is suspicious of UTI as patient c/o dysyruia and frequency of urination, started on ceftriaoxan on 09/16, today urine culture showed no growth and patient has no symptoms will go ahead and stop the ceftriaxone, patient is feeling better the chest pain shortness of breath, patient is seen by [employer] recommending the patient will need Lexiscan stress test to further evaluate her chest pain patient is scheduled for Lexiscan tomorrow and further recommendation to follow (2) Abdominal pain: Code(s): R10.9 - Unspecified abdominal pain Status: Acute Assessment and Plan: Plan is above Subjective Date/time seen: 09/18/19 15:01 Maria De Jesus Crum is a 59 year old female with past medical history ofhypertension diabetes coronary artery disease patient presented the complain of abdominal pain chest pain nausea or vomiting and diarrhea described as a or tree with some mucus but no bleeding, patient states when she had her last CT her presentation was similar and this what brought her to the hospital, currently patient still complains right upper quadrant epigastric pain but denies any chest pain currently denies any fever or chills nausea or vomiting, patient had CTA scan of the abdomen, and chest there was no significant pathology to further evaluate patient also had ultrasound of abdomen did not show any pathology, patient 2 sets of cardiac enzymes were negative will continue to trend the tropes, patient is taking Coreg 12.5mg daily and her HR is in low 50 this may have caused nuasea and chest pain, patient is seen by [employer] and started the patient on lower dose of Coreg to 6.25mg, in regards to abdominal pain which in RUQ and her Ct of abdomen and US are negative any pathology however her urine is suspicious of UTI as patient c/o dysyruia and frequency of urination, started on ceftriaoxan on 09/16, today urine culture showed no growth and patient has no symptoms will go ahead and stop the ceftriaxone, patient is feeling better the chest pain shortness of breath, patient is seen by [employer] recommending the patient will need Lexiscan stress test to further evaluate her chest pain patient is scheduled for Lexiscan tomorrow and further recommendation to follow Review of Systems Review of Systems: All systems reviewed & are unremarkable except as noted in HPI and below Exam Const: General: comfortable and no acute distress HENMT: General nose exam: Normal nares present Mouth: Yes moist mucous membranes Eyes: General: appearance normal, both eyes and all related structures Sclera: sclerae normal Neck: Neck: supple Resp: Effort & Inspection: normal respiratory effort Auscultation: clear to auscultation bi
[2019-09-18] MEDS: ONDANSETRON INJ 4 MG/2 ML VIAL IV PUSH (18:44)
[2019-09-18] MEDS: carvediloL 12.5 MG TABLET PO (20:48)
[2019-09-19] VITALS (7 sets, daily range): BP systolic 159–173; BP diastolic 60–65; PULSE 52–76; RESP 16–19; TEMP 36.5–37.2; O2SAT 98–99
--- NOTE | 2019-09-19 | EST_ITS ---
Patient Info Name: Maria De Jesus Crum Age: 59 years : 1960 Gender: Female Ht: 63 in Wt: 175 lbs BSA: 1.91 m2 Heart Rhythm: Bradycardia Exam Date: 09/19/2019 11:28 AM Exam Location: [facility] Stress Patient Status: Inpatient Admit Date: 09/16/2019 Staff Ordering Physician: Teofilo Peterson MD Attending Provider: Teofilo Peterson MD Exercise Technologist: Daly Mike RDCS Nurse: Arti Leone, CESAR, ACNP-BC Exam Type: CA stress fran w NM Study Info Indications R07.9 - Chest pain, unspecified A regadenoson stress test was performed. Summary 1. Nondiagnostic ST/T wave changes with Lexiscan. 2. Occasional PVCs. 3. No stress-induced chest pain. 4. Please correlate with nuclear medicine images, reported separately. Protocol: Lexiscan Stress ECG Details Stage: REST Duration (min): 5 min : 45 sec HR (bpm): 53 SBP (mmHg): 169 DBP (mmHg): 112 Stage: REST Duration (min): 13 min : 59 sec HR (bpm): 57 SBP (mmHg): 169 DBP (mmHg): 112 Stage: STAGE 1 Duration (min): 1 min : 0 sec HR (bpm): 76 SBP (mmHg): 166 DBP (mmHg): 101 Stage: RECOVERY Duration (min): 1 min : 0 sec HR (bpm): 87 SBP (mmHg): 166 DBP (mmHg): 101 Stage: RECOVERY Duration (min): 2 min : 0 sec HR (bpm): 82 SBP (mmHg): 157 DBP (mmHg): 89 Stage: RECOVERY Duration (min): 3 min : 0 sec HR (bpm): 81 SBP (mmHg): 155 DBP (mmHg): 85 Stage: RECOVERY Duration (min): 4 min : 0 sec HR (bpm): 77 SBP (mmHg): 155 DBP (mmHg): 85 Stage: RECOVERY Duration (min): 4 min : 51 sec HR (bpm): 75 SBP (mmHg): 175 DBP (mmHg): 86 Rest HR: 57 bpm Peak HR: 88 bpm Rest Sys BP: 169 mmHg Peak Sys BP: 175 mmHg Max Pred HR: 160 bpm % Max Pred HR: 55 % Target HR: 136 bpm Max RPP: 15,400 bpm*mmHg BP Response: Normal blood pressure response Termination Reason: Completed protocol Cardiac Symptoms: None Total Time: 1 min : 0 sec Rest Wen BP: 112 mmHg Peak Wen BP: 86 mmHg Total Dose: 0.4 mg Resting ECG Sinus bradycardia. Nonspecific ST abnormality. Stress ECG Nondiagnostic ST/T wave changes with Lexiscan. Arrhythmias Occasional PVCs. Report Signatures
[2019-09-19] MEDS: LACTATED RINGERS 1,000 ML 125 ML IV CONT ×2 (01:44→09:34)
[2019-09-19 05:47] LABS: Hematocrit 38.7 % (37.0-47.0); Hemoglobin 14.1 g/dL (12.0-15.0); Mean Corpuscular HGB Conc 36.4 g/dl (32-36); Mean Corpuscular Hemoglobin 31.3 pg (26-34); Mean Platelet Volume 9.2 fl (7.4-10.4); Platelet Count Result 204 k/mm3 (150-375); Red Cell Distribution Width 11.9 % (11.5-14.5); White Blood Count 7.4 K/mm3 (4.5-10.0)
[2019-09-19 06:52] LABS: Blood Urea Nitrogen 7 mg/dL (7-17); Calcium 9.3 mg/dL (8.4-10.2); Carbon Dioxide 30 mmol/L (22-30); Chloride 93 mmol/L (98-107); Estimated CRCL calculation 101 ml/min; Estimated Glomerular Filt Rate > 60; Glucose 110 mg/dL (65-105); Potassium 3.1 mmol/L (3.4-5.0); Sodium 132 mmol/L (137-145)
--- NOTE | 2019-09-19 08:45 | PC.NURSE ---
per Arti Leone, hold carvedilol for cardiac stress test
--- NOTE | 2019-09-19 09:15 | PC.NURSE ---
called pharmacy for missing meds lacy for [phone]
--- NOTE | 2019-09-19 12:36 | PM.PNCARD ---
Progress Note: A&P Assessment and Plan (1) Sinus bradycardia: Code(s): R00.1 - Bradycardia, unspecified Status: Acute Assessment and Plan: Asymptomatic. Continue carvedilol 12.5 mg p.o. b.i.d.. Some of her mild bradycardia may be related to her abdominal pain and vagal reaction from being nauseous and vomiting. Echo 09/17/2019: 1. Left ventricular chamber dimension is normal. 2. Left ventricular systolic function is normal, estimated at 65-70%. 3. There is mildly increased left ventricular wall thickness. 4. Left ventricular septal wall motion is normal. 5. The left ventricular diastolic function is abnormal. 6. Left atrial chamber dimension is mildly enlarged. 7. There is mild aortic valve sclerosis. 8. There is mild aortic valve regurgitation. 9. There is mild mitral valve regurgitation. 10. There is mild tricuspid valve regurgitation. 11. Mild pulmonary hypertension, estimated pulmonary arterial systolic pressure is 41 mmHg. (2) Abdominal pain: Code(s): R10.9 - Unspecified abdominal pain Status: Acute Assessment and Plan: Suspect her abdominal symptoms are related to a urinary tract infection. Defer treatment and further workup to Dr. Peterson. Given Adali yesterday (3) CAD (coronary artery disease): Qualifiers: Coronary Disease-Associated Artery/Lesion type: [place] artery [place] vs. transplanted heart: [place] heart Associated angina: without angina Qualified Code(s): I25.10 - Atherosclerotic heart disease of [place] coronary artery without angina pectoris Code(s): I25.10 - Atherosclerotic heart disease of [place] coronary artery without angina pectoris Status: Acute Assessment and Plan: Continue aspirin, statin, beta-tyson Lexiscan pending (4) Hypertension associated with diabetes: Code(s): E11.59 - Type 2 diabetes mellitus with other circulatory complications; I10 - Essential (primary) hypertension Status: Acute Assessment and Plan: Above goal. Some may be related to abdominal pain. Follow closely as an outpatient. (5) Hyperlipidemia associated with type 2 diabetes mellitus: Code(s): E11.69 - Type 2 diabetes mellitus with other specified complication; E78.5 - Hyperlipidemia, unspecified Status: Acute Assessment and Plan: On statin Time Spent With Patient Time: Further recommendations pending the outcome of her stress test. Plan discussed with Dr. Carbajal [id number] 09/19/2019 Time with patient: 15 - 25 minutes Subjective Date/time seen: 09/19/19 11:30 Seen in stress lab. Interval history: Follow-up for: Bradycardia. History of coronary artery disease with stent to the right coronary artery in 2013 Date of service: 09/19/2019 Subjective: Denied chest discomfort. Still has nausea. Abdominal pain is better. No shortness of breath. Review of Systems Constitutional: Constitutional: Denies excessive sweating, Denies fatigue, Denies headache(s) and Denies weakness Eyes: Eyes: Denies blurry vision ENT: Denies Normal hearing present, Denies headache(s) and Denies neck pain Cardiovascular: Cardiovascular: Denies chest pain and Denies dyspnea Respiratory: Respiratory: Denies dyspnea Gastrointestinal: Gastrointestinal: Reports abdominal pain and Reports nausea Genitourinary: Genitourinary: Reports dysuria Musculoskeletal: Musculoskeletal: Denies back pain, Denies neck pain and Denies numbness Integumentary/Breasts: Skin/Breast: Denies dry skin Neurologic: Denies Normal hearing present, Denies headache(s), Denies numbness and Denies weakness Psychiatric: Psychiatric: Denies anxiety Endocrine: Endocrine: Denies excessive sweating and Denies fatigue Hematologic/Lymphatic: Hematologic/Lymphatic: Denies easy bleeding Allergic/Immunologic:
--- NOTE | 2019-09-19 12:50 | PC.NURSE ---
pt back to floor from nuclear med stress test
[2019-09-19] MEDS: POTASSIUM CHLORIDE 20 MEQ TABLET 40 MEQ PO (12:52)
[2019-09-19] MEDS: ASPIRIN 81 MG CHEWABLE TABLET PO (12:52)
[2019-09-19] MEDS: ROSUVASTATIN 10 MG TABLET 20 MG PO (12:53)
[2019-09-19] MEDS: buPROPion HCL XL (24 HR) 150 MG TABCR PO (12:53)
[2019-09-19] MEDS: ANASTROZOLE (*CHEMO) 1 MG TABLET PO (12:54)
[2019-09-19] MEDS: ASCORBIC ACID 500 MG TABLET 1000 MG PO (12:54)
[2019-09-19] MEDS: PANTOPRAZOLE SODIUM IV 40 MG VIAL IV PUSH (12:54)
[2019-09-19] MEDS: carvediloL 12.5 MG TABLET PO (13:04)
--- NOTE | 2019-09-19 15:37 | PM.DS ---
DS: Admitting Diagnosis Admitting Diagnosis Admitting Diagnosis: Chest pain, unspecified DS: Discharge Diagnosis Discharge Diagnosis (1) Chest pain: Code(s): R07.9 - Chest pain, unspecified Status: Acute Assessment and Plan: 09/18/19 15:01 Maria De Jesus Crum is a 59 year old female with past medical history of hypertension diabetes coronary artery disease patient presented the complain of abdominal pain chest pain nausea vomiting and diarrhea described with some mucus but no bleeding, patient states when she had her last WA her presentation was similar and this what brought her to the hospital, currently patient still complains right upper quadrant epigastric pain but denies any chest pain currently denies any fever or chills nausea or vomiting, patient had CTA scan of the abdomen, and chest there was no significant pathology to further evaluate patient also had ultrasound of abdomen did not show any pathology, patient 2 sets of cardiac enzymes were negative will continue to trend the tropes, patient is taking Coreg 12.5mg daily and her HR is in low 50 this may have caused nuasea and chest pain, patient is seen by wrap checker and started the patient on lower dose of Coreg to 6.25mg, in regards to abdominal pain which in RUQ and her Ct of abdomen and US are negative any pathology however her urine is suspicious of UTI as patient c/o dysyruia and frequency of urination, started on ceftriaoxan on 09/16, today urine culture showed no growth and patient has no symptoms will go ahead and stop the ceftriaxone, patient is feeling better the chest pain shortness of breath, patient is seen by wrap checker recommending the patient will need Lexiscan stress test to further evaluate her chest pain patient is scheduled for Lexiscan tomorrow and further recommendation to follow (2) Abdominal pain: Code(s): R10.9 - Unspecified abdominal pain Status: Acute Assessment and Plan: Plan is above DS: Summary Hospital Course Reason for hospitalization: Chief complaint: chest pain,nausea,vomiting Narrative: Maria De Jesus Crum is a 59 year old female with past medical history ofhypertension diabetes coronary artery disease patient presented the complain of abdominal pain chest pain nausea or vomiting and diarrhea described as a or tree with some mucus but no bleeding, patient states when she had her last WA her presentation was similar and this what brought her to the hospital, currently patient still complains right upper quadrant epigastric pain but denies any chest pain currently denies any fever or chills nausea or vomiting, patient had CTA scan of the abdomen, and chest there was no significant pathology to further evaluate patient also had ultrasound of abdomen did not show any pathology, patient 2 sets of cardiac enzymes are negative will continue to trend the tropes, to further evaluate will do the Lexiscan in the morning and further recommendation to follow Hospital Course: 09/18/19 15:01 Maria De Jesus Crum is a 59 year old female with past medical history of hypertension diabetes coronary artery disease patient presented the complain of abdominal pain chest pain nausea vomiting and diarrhea described with some mucus but no bleeding, patient states when she had her last WA her presentation was similar and this what brought her to the hospital, currently patient still complains right upper quadrant epigastric pain but denies any chest pain currently denies any fever or chills nausea or vomiting, patient had CTA scan of the abdomen, and chest there was no significant pathology to further evaluate patient also had ultrasound of abdomen did not show any pathology, patient 2 sets of cardiac enzymes were negative will continue to trend the tropes, patient is taking Coreg 12.5mg daily and her HR is in low 50 this may have caused nuasea and chest pain, patient is seen by wrap checker and started the patient on lower dose of Coreg to 6.25mg, in regards to abdom
--- NOTE | 2019-09-20 09:17 | PC.NURSE ---
Patient called and stated she could not afford the Protonix PO that Dr. Soliman prescribed. Dr Jiménez was called and told about the situation. He says for the patient to take OTC Prilosec 40 mg PO daily. Patient given these instructions.
== END 2019-09-19 17:20 | disposition home or self-care (01) ==
LOC: ANHED 12:37 → ANHIMU 13:04 → ANH2MED 09-18 14:37
PROVIDERS: Internal Medicine Cardiovascular Disease; Admitting Provider Family Medicine; Emergency Provider General Practice; PCP Emergency Medicine; Visit Provider Family Medicine
DX: R07.9 Chest pain, unspecified (principal); R11.2 Nausea with vomiting, unspecified; R10.11 Right upper quadrant pain; R10.13 Epigastric pain; R00.1 Bradycardia, unspecified; R30.0 Dysuria; R35.0 Frequency of micturition; I25.10 Atherosclerotic heart disease of native coronary artery without angina pectoris; I25.2 Old myocardial infarction; E11.59 Type 2 diabetes mellitus with other circulatory complications; I10 Essential (primary) hypertension; E11.69 Type 2 diabetes mellitus with other specified complication; E78.5 Hyperlipidemia, unspecified; F17.210 Nicotine dependence, cigarettes, uncomplicated; Z79.82 Long term (current) use of aspirin; Z79.899 Other long term (current) drug therapy
CPT/HCPCS: 36415; 36600; 71045; 71275; 74174; 76700; 78452; 80048; 80053; 80061; 81001; 82375; 82805; 83050; 83605; 83690; 84436; 84443; 84484; 85025; 85027; 87086; 93005; 93017; 93306; 96361; 96365; 96367; 96374; 96375; 99285; A9270; A9502; C9113; G0378; G0379; J0131; J0696; J2270; J2405; J2765; J2785; J7120; Q9967

== ENCOUNTER 2019-12-21 13:48 | Outpatient (CLI) | payer MEDICAID, SELFPAY ==
--- NOTE | ~2019-12-21 | US_ITS ---
EXAMINATION: US art doppler w press LE BI DATE: 12/21/2019 14:45 INDICATION: Peripheral arterial occlusive disease TECHNIQUE: Segmental pressures and plethysmographic and Doppler waveforms of the brachial and lower e xtremity arteries were obtained. COMPARISON: CT dated 09/21/2019 FINDINGS: Right and left brachial artery pressures of 117 mm Hg and 120 mm Hg, respectively, are concordant (no rmal difference <= 30 mmHg). The right and left high-thigh pressure indices are 0.91 and 1.46, respec tively (normal > 1.2). The right ankle-brachial index (SILVER) is 0.72 (normal >= 0.9-1). The right great toe-brachial index (T BI) is 0.51 (normal >= 0.6-0.8). The right lower extremity segmental pressure gradients are normal be tween levels in the right lower limb but increased between the arteries at each of these levels in th e right lower limb and the corresponding artery at the contralateral left lower limb (normal gradient s <= 20-30 mmHg between adjacent levels on the same leg or the same levels on the two legs). Arterial waveforms are biphasic with brisk systolic upstrokes throughout. The left SILVER is 1.18. The left TBI is 0.68. The left lower extremity segmental pressure gradients are normal. Arterial waveforms are biphasic with brisk systolic upstrokes throughout. IMPRESSION: 1. 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 2. No significant arterial occlusive disease to the left lower limb with normal left SILVER and TBI. Reviewed, dictated and finalized at location [facility]. IMPRESSION: 1. Decreased right TBI and moderately decreased right SILVER likely related to a s hort segmental occlusion of the right common femoral artery seen on prior CT an d which reconstitutes at the level of the bifurcation via collateral supply fro m branches of the right internal iliac artery. 2. No significant arterial occlusive disease to the left lower limb with normal left SILVER and TBI.
== END 2019-12-21 13:49 | disposition home or self-care (01) ==
PROVIDERS: Visit Provider Internal Medicine Cardiovascular Disease
DX: I73.9 Peripheral vascular disease, unspecified (principal)
CPT/HCPCS: 93923

== ENCOUNTER 2020-02-23 13:53 | Outpatient (CLI) | payer MEDICAID, SELFPAY ==
--- NOTE | ~2020-02-23 | CT_ITS ---
EXAMINATION: CT abdomen wo/w con DATE: 02/23/2020 14:56 INDICATION: Adrenal and splenic masses. TECHNIQUE: Computed tomography (CT) of the abdomen and pelvis was performed without and with 100 mL O mnipaque-350 intravenous contrast utilizing standard adrenal mass protocol. Automated exposure contro l and iterative reconstruction technique were employed. The dose-length product was 1214.54 mGy-cm. COMPARISON: 09/16/2019 FINDINGS: Mild to moderate emphysema and mild dependent atelectasis at the bilateral lower lung zones. Heart si ze is normal. Atherosclerotic coronary artery calcification an/or stenting. Aortic valve calcificatio n. No pericardial or pleural effusion. Cholecystectomy clips at the gallbladder fossa. Liver, pancrea s and right adrenal gland are normal. 2.0 cm left adrenal mass which demonstrates absolute washout of 78% and relative washout of 69%, both diagnostic of adenoma. 1.7 cm close to fluid attenuation lesio n in the spleen which demonstrates slow mild enhancement. Bilateral low-attenuation nonenhancing edson l cysts the largest on the right measuring 2.5 cm. There is a nonobstructing 11 mm stone at the left ureteropelvic junction with no hydronephrosis. There is however mild associated inflammatory change w ith urothelial enhancement at the left renal pelvis and several haziness to the peripelvic fat. Visua lized portions of the bowels are unremarkable. No pathologically enlarged abdominal lymphadenopathy. Chronic mild central superior endplate compression fractures with associated Schmorl's nodes at T9 an d T11. IMPRESSION: 1. 2.0 cm left adrenal adenoma with diagnostic levels of contrast washout. 2. Indeterminate 1.7 cm splenic lesion. Best majority of splenic lesions are benign and recommendatio ns remains controversial. In the absence of a known history of malignancy could consider 1 year follo w-up contrast enhanced CT or MRI. 3. 11 mm nonobstructing stone at the left ureteropelvic junction but with mild associated inflammator y change which could be due to direct irritation but would correlate with urinalysis to exclude assoc iated infection. 4. Mild to moderate emphysema. Reviewed, dictated and finalized at location [facility]. [facility] IMPRESSION: 1. 2.0 cm left adrenal adenoma with diagnostic levels of contrast washout. 2. Indeterminate 1.7 cm splenic lesion. Best majority of splenic lesions are be nign and recommendations remains controversial. In the absence of a known histo ry of malignancy could consider 1 year follow-up contrast enhanced CT or MRI. 3. 11 mm nonobstructing stone at the left ureteropelvic junction but with mild associated inflammatory change which could be due to direct irritation but woul d correlate with urinalysis to exclude associated infection. 4. Mild to moderate emphysema.
[2020-02-23 14:26] LABS: Estimated Glomerular Filt Rate > 60
== END 2020-02-23 13:54 | disposition home or self-care (01) ==
PROVIDERS: Visit Provider Emergency Medicine
DX: E27.9 Disorder of adrenal gland, unspecified (principal); J43.9 Emphysema, unspecified; N20.0 Calculus of kidney; D35.02 Benign neoplasm of left adrenal gland
CPT/HCPCS: 74170; Q9967

== ENCOUNTER 2020-10-03 10:34 | Outpatient (CLI) | payer MEDICAID, SELFPAY ==
--- NOTE | ~2020-10-03 | CT_ITS ---
EXAMINATION: CT abdomen wo/w con EXAM DATE: 10/03/2020 11:20 INDICATION: Adrenal, splenic masses. TECHNIQUE: Spiral CT of the abdomen was performed without and then with intravenous injection of 100 mL Omnipaque 350. Axial, coronal and sagittal images of the abdomen were reviewed. Postcontrast seq uences were obtained during both the arterial and washout phases, adrenal protocol. The dose-length p roduct (DLP) for this examination was 834.70 mGy-cm. The exposure was tailored according to patient size (auto mA exposure control), and iterative reconstruction (ASIR) was used as additional dose redu ction technique. Comparison is made to prior examination from 02/23/2020. FINDINGS: Left adrenal 2.0 cm mass reidentified, measures 14 Hounsfield units precontrast, 134 Hounsf ield units on arterial phase and 47 Hounsfield units on washout phase, greater than 70% absolute wash out. Again this is consistent with adenoma, size and appearance unchanged. Splenic lesion measures about 1.6 cm, is also unchanged in size and appearance consistent with benign histology, requiring no further follow-up. Liver, pancreas, right adrenal gland are unremarkable. Th ere are surgical clips in the gallbladder fossa. Some biliary duct dilation which is common finding following cholecystectomy. Portal and splenic veins are patent. Kidneys enhance symmetrically. The re is no hydronephrosis. There is large left renal stone measuring about 1 cm identified, nonobstruct ing in the inferior moiety. There is no retroperitoneal lymphadenopathy. There is mild to moderat e scattered arteriosclerotic disease. The stomach and small bowel are unremarkable. There is expected amount of colonic stool. No free i ntraperitoneal gas. The heart is normal in size. There are no pericardial or pleural effusions. M ild basilar atelectasis and emphysema. There are no osteoblastic or osteolytic lesions identified. IMPRESSION: 1. Left adrenal and splenic benign lesions, unchanged. 2. Large left nephrolithiasis. Reviewed, dictated and finalized at location A.
[2020-10-03 10:56] LABS: Estimated Glomerular Filt Rate > 60
== END 2020-10-03 10:35 | disposition home or self-care (01) ==
PROVIDERS: Visit Provider Emergency Medicine
DX: R16.1 Splenomegaly, not elsewhere classified (principal); E27.9 Disorder of adrenal gland, unspecified; N20.0 Calculus of kidney
CPT/HCPCS: 74170; Q9967

== ENCOUNTER 2020-11-22 12:59 | Outpatient (CLI) | payer MEDICAID, SELFPAY ==
--- NOTE | ~2020-11-22 | CT_ITS ---
EXAMINATION: CT lung screening DATE: 11/22/2020 14:03 INDICATION: History of nicotine dependence TECHNIQUE: Computed tomography (CT) of the chest was performed without intravenous contrast. The dose -length product was 96.78 mGy-cm. Automated exposure control and iterative reconstruction technique w ere employed. COMPARISON: CT dated 09/16/2019 FINDINGS: Heart size is normal. No significant pleural or pericardial effusion. There is moderate ath erosclerosis of the aorta and coronary arteries. Status post cholecystectomy. There is moderate emphy sema. No pneumothorax. No endobronchial lesions. No thoracic lymphadenopathy. There is 2 mm upper lob e nodules. There is a 3 mm right upper lobe nodule, image 53. There is a stable 2 cm left adrenal mas s, likely benign. There are cholecystectomy clips. IMPRESSION: 1. Lung-RADS category 2: Benign appearance or behavior. Continue annual screening with noncontrast lo w-dose chest CT in 12 months. Reviewed, dictated and finalized at location A. IMPRESSION: 1. Lung-RADS category 2: Benign appearance or behavior. Continue annual screeni ng with noncontrast low-dose chest CT in 12 months.
== END 2020-11-22 13:00 | disposition home or self-care (01) ==
LOC: ANHIMG 13:00
PROVIDERS: Visit Provider Emergency Medicine
DX: Z12.2 Encounter for screening for malignant neoplasm of respiratory organs (principal); Z87.891 Personal history of nicotine dependence
CPT/HCPCS: 71271

== ENCOUNTER 2022-07-03 10:25 | Outpatient (CLI) | payer MEDICAID, SELFPAY ==
--- NOTE | ~2022-07-03 | CT_ITS ---
CT Scan of the Chest without Contrast: Clinical Indication: Lung cancer screening, smoking history Technique: Contiguous sections were acquired throughout the chest without intravenous contrast. Dose reduction technique was used on this scan by utilizing automated exposure control and iterative recon struction technique. The dose-length product (DLP) was 87.06 mGy-cm. COMPARISON: 11/22/2020 Findings: There is no evidence of any significant mediastinal, hilar or axillary lymphadenopathy. There are ath erosclerotic calcifications of the aorta. Coronary artery calcifications are present. There is no evidence of pleural or pericardial effusion. Stable 3 mm right upper lobe pulmonary nodule. Stable mild to moderate emphysema. Images through the upper abdomen reveal no abnormalities. Impression: Lung-RADS 2: Benign appearance. 12 month follow-up screening CT advised. Stable mild to moderate emphysema. Reviewed, dictated and finalized at [facility]. Impression: Lung-RADS 2: Benign appearance. 12 month follow-up screening CT advised. Stable mild to moderate emphysema.
== END 2022-07-03 10:26 | disposition home or self-care (01) ==
PROVIDERS: Visit Provider Emergency Medicine
DX: Z12.2 Encounter for screening for malignant neoplasm of respiratory organs (principal); Z87.891 Personal history of nicotine dependence
CPT/HCPCS: 71271

== ENCOUNTER 2023-08-07 08:18 | Outpatient (CLI) | payer MEDICAID, SELFPAY ==
--- NOTE | ~2023-08-07 | DEXA_ITS ---
Bone Density Report Name: NICK CROWDER Age: 63 Sex: Female Ethnicity: White Date of : 1960 Indication: osteopenia; cancer; Referring Provider: SHONA BERKOWITZ Study: Bone densitometry was performed. Exam Date: August 07, 2023 Accession number: [id number] Bone Density: Region BMD T-score Z-score Classification AP Spine(L1-L4) 0.925 -1.1 0.6 Osteopenia Femoral Neck (Left) 0.756 -0.8 0.6 Normal Total Hip (Left) 0.863 -0.6 0.5 Normal Femoral Neck (Right) 0.653 -1.8 -0.3 Osteopenia Total Hip (Right) 0.774 -1.4 -0.2 Osteopenia Total Hip Mean 0.819 -1.0 0.2 Normal World Health Organization criteria for BMD impression classify patients as: Normal (T-score at or above -1.0), Osteopenia (T-score between -1.0 and -2.5), or Osteoporosis (T-score at or below -2.5). 10-year Fracture Risk(1): Major Osteoporotic Fracture 8.9% Hip Fracture 1.0% Reported Risk Factors: [place] (), Neck BMD=0.653, BMI=32.3 (1) FRAX(R) Version 3.08. Fracture probability calculated for an untreated patient. Fracture probability may be lower if the patient has received treatment. Previous Exams: Region Exam Age BMD T-score BMD Change BMD Change Date g/cm2 vs Baseline vs Previous AP Spine (L1-L4) 08/07/2023 63 0.925 -1.1 0.064 (7.4%)# 0.015 (1.7%)# 11/12/2016 56 0.910 -1.2 0.049 (5.7%)* 0.049 (5.7%)* 11/10/2014 54 0.861 -1.7 Total Hip(Left) 08/07/2023 63 0.863 -0.6 0.050 (6.1%)# 0.004 (0.4%)# 11/12/2016 56 0.860 -0.7 0.046 (5.7%)* 0.046 (5.7%)* 11/10/2014 54 0.813 -1.1 Total Hip(Right) 08/07/2023 63 0.774 -1.4 -0.003 (-0.4%) 0.024 (3.2%)# 11/12/2016 56 0.750 -1.6 -0.027 (-3.5%) -0.027 (-3.5%) 11/10/2014 54 0.777 -1.4 *Denotes significance at 95% confidence level, LSC for AP Spine = 0.022 g/cm2, LSC for Total Hip = 0.027 g/cm2 # Denotes dissimilar scan types or analysis methods Clinical Information Provided by Patient: Has used the following medications: Prolia (i.e. denosumab), Vitamin D Has the following medical conditions: Cancer Patient maximum height was 63 Menopause Age: 49 No regular weight bearing exercise Drinks caffeinated beverages Onset of menses at age 14 Number of children 1 Impression: The patient has low bone mass, based on the Right Femoral Neck T-score. The patient has an estimated ten-year risk of hip fracture of 1% and an estimated ten-year risk of major fract
== END 2023-08-07 08:19 | disposition home or self-care (01) ==
LOC: ANHIMG 08:25
PROVIDERS: Referring Provider Internal Medicine; Visit Provider Emergency Medicine
DX: M85.80 Other specified disorders of bone density and structure, unspecified site (principal); M85.88 Other specified disorders of bone density and structure, other site; M85.851 Other specified disorders of bone density and structure, right thigh
CPT/HCPCS: 77080

== ENCOUNTER 2023-09-08 09:52 | Outpatient (CLI) | payer MEDICAID, SELFPAY ==
--- NOTE | ~2023-09-08 | CT_ITS ---
CT Scan of the Chest without Contrast: Clinical Indication: Lung cancer screening, nicotine dependence Technique: Contiguous sections were acquired throughout the chest without intravenous contrast. Dose reduction technique was used on this scan by utilizing automated exposure control and iterative recon struction technique. The dose-length product (DLP) was 148.21 mGy-cm. COMPARISON: 07/03/2022 Findings: There is no evidence of any significant mediastinal, hilar or axillary lymphadenopathy. There are ath erosclerotic calcifications of the aorta and coronary arteries. There is no evidence of pleural or pericardial effusion. Stable 5 mm right upper lobe pulmonary nodule (axial image 60).. Moderate emphysema present. Images through the upper abdomen reveal 1.9 cm left adrenal nodule, likely unchanged from prior exam. . Impression: Lung RADS 2: Benign appearance. 12 month follow up screening CT advised. Moderate emphysema. Reviewed, dictated and finalized at [facility]. Impression: Lung RADS 2: Benign appearance. 12 month follow up screening CT advised. Moderate emphysema.
== END 2023-09-08 09:53 | disposition home or self-care (01) ==
LOC: ANHIMG 09:53
PROVIDERS: Visit Provider Emergency Medicine
DX: Z12.2 Encounter for screening for malignant neoplasm of respiratory organs (principal); J43.9 Emphysema, unspecified; Z87.891 Personal history of nicotine dependence
CPT/HCPCS: 71271

== ENCOUNTER 2024-10-04 09:42 | Outpatient (CLI) | payer MEDICARE, SELFPAY ==
--- NOTE | ~2024-10-04 | CT_ITS ---
CT Scan of the Chest without Contrast: Clinical Indication: Lung cancer screening, nicotine dependence Technique: Contiguous sections were acquired throughout the chest without intravenous contrast. Dose reduction technique was used on this scan by utilizing automated exposure control and iterative recon struction technique. The dose-length product (DLP) was 136.61 mGy-cm. COMPARISON: 09/08/2023 Findings: There is no evidence of any significant mediastinal, hilar or axillary lymphadenopathy. There are ext ensive atherosclerotic calcifications of the aorta and coronary arteries. There is no evidence of pleural or pericardial effusion. Stable 4 mm right upper lobe pulmonary nodule (axial image 61). Moderate emphysema present in the upp er lobes. Images through the upper abdomen reveal stable left adrenal nodule. Impression: Lung RADS 2: Benign appearance. 12 month follow-up screening CT advised. Reviewed, dictated and finalized at location . Impression: Lung RADS 2: Benign appearance. 12 month follow-up screening CT advised.
--- OUTSIDE RECORDS SUMMARY | 2024-10-04 09:56 | XMS_ITS | Referral Summary ---
Author Organization [facility] [place] [address] Address [address] [place] [address] Care Team Providers Care Electronic Device Monitor Name Role Phone Tim Whitten MD Primary Care Provider [phone] Wily Stinson MD Unavailable [phone] Encounters Date Type Department Care Team Description 07/07/2024 Results Follow-Up [facility] Cardiology [address] [facility] [address], [place] [id number] Radha Payne NP US Arterial Doppler Lower Extremity Bilateral 07/06/2024 11:00 AM CDT Ancillary Procedure [facility] Vascular and Vein Surgery at [address] [place] [address] PAD (peripheral artery disease); H/O endarterectomy from Last 3 Months Allergies No known active allergies Medications aspirin (ASPIRIN LOW DOSE) 81 mg tablet take 1 tablet by oral route every day 0 0 4 Active ALPRAZolam (XANAX) 1 mg tablet take 1 Tablet by oral route every day at night 0 0 4 Active Additional Information Patient taking differently:1 mgoral Nightly PRN, sleep, anxiety, Reported on 06/22/2024 anastrozole (ARIMIDEX) 1 mg chemo tablet take 1 tablet by oral route every day 0 0 5 Active Additional Information Patient taking differently:1 mgDaily before breakfast, Indications: breast cancer, Informant: Self, Reported on 06/22/2024 VITAMIN D2 50,000 unit capsuleIndicati ons:Vitamin D Deficiency Take 1 capsule (50,000 Units total) by mouth every 14 (fourteen) days Every 2 weeks on Sundays 8 Active HYDROcodone-leeann taminophen (NORCO) 7.5-325 mg per tablet Take 1 tablet by mouth every 6 (six) hours as needed for pain 0 9 Active ascorbic acid (VITAMIN C) 1,000 mg tabletIndicatio ns:Vitamin C Deficiency Take 1 tablet (1,000 mg total) by mouth daily before breakfast Active calcium carbonate (CALCIUM 600 ORAL) Take 1 tablet by mouth daily before breakfast Active biotin 5 mg tablet Take 5 mg by mouth daily before breakfast Active acetaminophen 500 mg capsuleIndicati ons:Pain Take 2 capsules (1,000 mg total) by mouth every 6 (six) hours as needed for pain 2 Active HYDROcodone-leeann taminophen 2.5-325 mg tablet Take 1 tablet by mouth as needed Active carvediloL (COREG) 12.5 mg tablet Take 1 tablet (12.5 mg total) by mouth 2 (two) times a day with meals 180 tablet 6 5 Active rosuvastatin (CRESTOR) 20 mg tablet Take 1 tablet (20 mg total) by mouth nightly 90 tablet 6 5 Active Active Problems Problem Noted Date Diagnosed Date CAD (coronary artery disease) 03/12/2022 Assessment & Plan (03/12/2022 9:04 AM TERRAZZO MECHANIC): - NSTEMI 2013 s/p YULIANA - Continue ASA, statin - Resume coreg as able PAD (peripheral artery disease) 12/18/2021 Overview (12/18/2021): Added automatically from request for surgery [id number] Assessment & Plan (03/12/2022 9:03 AM TERRAZZO MECHANIC): - 03/12: s/p right fem endarterectomy and patch angioplasty - Bedrest - Maintain quiroga - PT/OT POD #1 - Pain control - Continue ASA/Stain - Monitor incisions for bleeding/hematoma - Q2 hr NV checks - Advance diet as tolerated Claudication of right lower extremity 12/18/2021 Overview (12/18/2021): Added automatically from request for surgery [id number] Lumbago 08/26/2011 Anxiety 08/26/2011 Assessment & Plan (03/12/2022 9:03 AM TERRAZZO MECHANIC): - Continue home xanax Immunizations Immunization Administration Dates Next Due Influenza, Quadrivalent, Spl it, Preservative Free, Intramuscular 03/13/2022 Social History Tobacco Use Types Packs/Day Years Used Date Smoking Tobacco: Every Day Cigarettes Smokeless Tobacco: Never Alcohol Use Standard Drinks/Week Comments No 0 (1 standard drink = 0.6 oz pur e alcohol) AUDIT-C Answer Date Recorded Q1: How often do you have a drink containing alc ohol? Monthly or less 02/20/2022 Q2: How many drinks containi ng alcohol do you have on a typical day when you are drinking? 1 or 2 02/20/2022 Q3: How often do you have si x or more drinks on one occasion? Never 02/20/2022 Comments No Sex and Gender Information Value Date Recorded Sex Assigned at Not on file Legal Sex Female 7:52 AM TERRAZZO MECHANIC Gender Identity Not on file Sexual Orientation Not on file Last Filed Vital Signs Vital Sign Reading Time Taken Comments Blood Pressure 110/58 06/22/2024 8:35 AM CDT Pulse 76 06/22/2024 8:35 AM CDT Temperature 36.9 C (98.4 F) 09/15/2022 9:54 AM CDT Respiratory Rate 16 03/13/2022 7:57 AM TERRAZZO MECHANIC Oxygen Saturation 93% 06/22/2024 8:35 AM CDT Inhaled Oxygen Concentration - - Weight 83.9 kg (185 lb) 06/22/2024 8:35 AM CDT Height 157.5 cm (5' 2) 06/22/2024 8:35 AM CDT Body Mass Index 33.84 06/22/2024 8:35 AM CDT Plan of Treatment Not on file Medical Devices Implanted Type Area Clerk To Justice Device Identifier Shelf Expiration Date Model / Serial / Lot [employer] Vascu-Guard 8x.8cm Peripheral Patch Vascular Bovine Pericardium [id number] - Sna - [id number] Implanted:Qty: 1 on 03/12/2022 by Wily Stinson MD at [facility] Graft Right: Leg [facility] [id number] 10/16/2026 [id number] / NA / [id number] [employer] Device 10ml 5fr Closure Mynx Control 2 Mode Balloon Catheter [id number] - [id number] Implanted:Qty: 1 on 01/24/2022 by Luciano Quintero MD at [facility] [employer] 09/04/2023 [id number] / / [id number] Procedures Procedure Name Priority Date/Time Associated Diagnosis Comments US ARTERIAL DOPPLER LOWER EXTREMITY BILATERAL Schedule Routine, Read Routine (OP Routine) 07/06/2024 11:22 AM CDT PAD (peripheral artery disease) H/O endarterectomy from Last 3 Months Results * US Arterial Doppler Lower Extremity Bilateral (07/06/2024 11:22 AM CDT) Anatomical Region Laterality Modality Vascular Bilateral Ultrasound 07/06/2024 10:4 8 AM CDT Narrative 07/07/2024 12:51 PM CDT Vascular & Vein Surgery [address] [facility] [place] [address] Lower Extremity Arterial Doppler Report Patient Name: MARIA DE JESUS CRUM K : 1960 Study Date: 07/06/2024 10:48:00 AM Gender: F Torch Shearer: Halina Esparza Wilver Location: [facility] Ref Provider: LUCIANO QUINTERO Quality: Adequate Order Provider: LUCIANO QUINTERO PROCEDURES: Arterial Report: Bilateral lower extremity arterial Doppler exam at rest. INDICATIONS: S/P endart Rt iliofemoral 03/12/22 ([place]). HISTORY: HTN. HLD. CAD- [place] S/P stent. Breast CA. Former smoker. COMPARISONS: No change compared to prior study. The previous exam was completed on 09/12/2022. MEASUREMENTS: Right Value Left Value Rt Brachial Pressure 136 mmHg Lt Brachial Pressure 134 mmHg Rt FURNACE REPAIRER Pressure 125 mmHg Lt FURNACE REPAIRER Pressure 145 mmHg Rt DPA Pressure 126 mmHg Lt DPA Pressure 147 mmHg Rt 1st Digit Pressure 98 mmHg Lt 1st Digit Pressure 117 mmHg Rt PT SILVER Resting 0.92 Lt PT SILVER Resting 1.07 Rt DP SILVER Resting 0.93 Lt DP SILVER Resting 1.08 Rt Digit 1/Arm Index 0.72 Lt Digit 1/Arm Index 0.86 FINDINGS: Right Common Femoral Artery Analysis: The common femoral artery waveform is triphasic. Right Popliteal Artery Analysis: The popliteal waveform is triphasic. Right Posterior Tibial Artery Analysis: The posterior tibial waveform is triphasic. Right Anterior Tibial Artery Analysis: The anterior tibial waveform is biphasic. Right Digits: Normal right digit pressure and waveform. Left Common Femoral Artery Analysis: The common femoral artery waveform is triphasic. Left Popliteal Artery Analysis: The popliteal waveform is triphasic. Left Posterior Tibial Artery Analysis: The posterior tibial waveform is biphasic. Left Anterior Tibial Artery Analysis: The anterior tibial waveform is triphasic. Left Digits: Normal left digit pressure and waveform. Comments: Patient unable to tolerate blood pressure cuffs above ankles. CONCLUSIONS: 1. Ankle-brachial index of 0.9-1.3 is within normal limits in the bilateral lower extremities. ATTESTATION: I have reviewed and interpreted the pertinent images and measurements of this study. I attest to the conclusions in the final report that is provided above. Electronically Signed By: Sylvester Carrington MD 07/07/2024 12:50:18 PM CDT Procedure Note Sylvester Carrington MD - 07/07/2024 Vascular & Vein Surgery [address] [place] [address] Lower Extremity Arterial Doppler Report Patient Name: MARIA DE JESUS CRUM K : 1960 Study Date: 07/06/2024 10:48:00 AM Gender: F Torch Shearer: Halina Esparza RVT Location: [facility] Ref Provider: LUCIANO QUINTERO Quality: Adequate Order Provider: LUCIANO QUINTERO PROCEDURES: Arterial Report: Bilateral lower extremity arterial Doppler exam at rest. INDICATIONS: S/P endart Rt iliofemoral 03/12/22 ([place]). HISTORY: HTN. HLD. CAD- [place] S/P stent. Breast CA. Former smoker. COMPARISONS: No change compared to prior study. The previous exam was completed on 09/12/2022. MEASUREMENTS: Right Value Left Value Rt Brachial Pressure 136 mmHg Lt Brachial Pressure 134 mmHg Rt FURNACE REPAIRER Pressure 125 mmHg Lt FURNACE REPAIRER Pressure 145 mmHg Rt DPA Pressure 126 mmHg Lt DPA Pressure 147 mmHg Rt 1st Digit Pressure 98 mmHg Lt 1st Digit Pressure 117 mmHg Rt PT SILVER Resting 0.92 Lt PT SILVER Resting 1.07 Rt DP SILVER Resting 0.93 Lt DP SILVER Resting 1.08 Rt Digit 1/Arm Index 0.72 Lt Digit 1/Arm Index 0.86 FINDINGS: Right Common Femoral Artery Analysis: The common femoral artery waveform is triphasic. Right Popliteal Artery Analysis: The popliteal waveform is triphasic. Right Posterior Tibial Artery Analysis: The posterior tibial waveform is triphasic. Right Anterior Tibial Artery Analysis: The anterior tibial waveform is biphasic. Right Digits: Normal right digit pressure and waveform. Left Common Femoral Artery Analysis: The common femoral artery waveform is triphasic. Left Popliteal Artery Analysis: The popliteal waveform is triphasic. Left Posterior Tibial Artery Analysis: The posterior tibial waveform is biphasic. Left Anterior Tibial Artery Analysis: The anterior tibial waveform is triphasic. Left Digits: Normal left digit pressure and waveform. Comments: Patient unable to tolerate blood pressure cuffs above ankles. CONCLUSIONS: 1. Ankle-brachial index of 0.9-1.3 is within normal limits in thebilateral lower extremities. ATTESTATION: I have reviewed and interpreted the pertinent images and measurements ofthis study. I attest to the conclusions in the final report that is provided above. Electronically Signed By: Sylvester Carrington MD 07/07/2024 12:50:18 PM CDT us Luciano Quintero MD IM US PROCEDURES Final Result from Last 3 Months Insurance [employer] Advance Directives For more information, please contact: [phone] * Full Code (Latest Code Status on File) Date Activated Date Inactivated Comments 03/12/2022 2:37 PM 03/13/2022 4:57 PM Care Teams Electronic Device Monitor Relationship Specialty Start Date End Date Tim Whitten MD PCP - General 07/26/13 [place] [id number] [place] [address] Consulting Physician Vascular Surgery 03/13/22
--- OUTSIDE RECORDS SUMMARY | 2024-10-04 09:56 | XMS_ITS | Clinical Summary ---
Author Organization [facility] Address [address] [place] [address] Phone Care Team Providers Care Acid Strength Inspector Name Role Phone Tim Whitten Primary Care Provider [phone] Allergies No known active allergies Medications atorvastatin (LIPITOR) 40 MG Tablet Take 40 mg by mouth daily. Active clopidogrel (PLAVIX) 75 MG Tablet Take 75 mg by mouth daily. Active carvedilol (COREG) 12.5 MG Tablet Take 12.5 mg by mouth 2 times daily. Active Aspirin 81 MG Tablet Take 81 mg by mouth daily. Active Biotin w/ Vitamins C & E (HAIR SKIN & NAILS GUMMIES PO) Take by mouth. Active ALPRAZolam (XANAX) 0.25 MG Tablet Take 0.25 mg by mouth 3 times daily as needed. Active HYDROcodone-acet aminophen (LORTAB) 7.5-500 MG Tablet Take 1 Tab by mouth every 4 hours as needed for Pain. Active Cholecalciferol (VITAMIN D PO) Take by mouth. Active buPROPion SR (WELLBUTRIN SR) 150 MG TABLET SR 12 HR Take 150 mg by mouth 2 times daily. Active HYDROcodone-acet aminophen (NORCO) 7.5-325 MG Tablet Take 1 Tablet by mouth every 6 hours as needed. 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, estrogen receptor positive (HCC) Take 1 Tablet by mouth daily 90 Tablet 06/13/2024 Active Active Problems Problem Noted Date Diagnosed Date Carcinoma of upper-inner maura drant of left breast in female, estrogen receptor positive 07/23/2019 History of breast cancer 01/09/2017 Use of aromatase inhibitors 01/09/2017 Osteopenia Overview (03/07/2015): postmenopausal Encounter for screening mamm ogram for malignant neoplasm of breast Resolved Problems Problem Noted Date Diagnosed Date Resolved Date Breast cancer, left breast 06/23/2016 1 Breast cancer, left breast 06/23/2016 1 Carcinoma of upper-inner maura drant of left female breast 03/19/2016 01/09/2017 Breast cancer 02/20/2015 03/19/2016 Overview (03/07/2015): Left breast, pathological stage T1bN0, largest size 0.9 cm, ER +ve, NV +ve and HER2 negative. -- Status post lumpectomy and sentinel node evaluation on 05/22/14 ---- Oncotype DX showed recurrence score of 30 (high risk)-- This correlates with 10 year risk of distant recurrence of breast ca of 20% with Painter alone. -- S/P 4 cycles of taxotere + cyclophosphamide given from 07/07/14 to 09/13/14 -- Started arimidex on 10/11/14 Family History Medical History Relation Name Comments Diabetes Brother Congestive Heart Failure Maternal Grandfather Cancer Maternal Grandmother Congestive Heart Failure Maternal Grandmother Diabetes Maternal Grandmother High Cholesterol Maternal Uncle Stroke Maternal Uncle Breast Cancer Mother Breast Cancer Paternal Aunt 1 Cancer Paternal Aunt 1 Breast Cancer Paternal Aunt 2 Migraines Sister Rheumatoid Arthritis Sister Relation Name Status Comments Brother Maternal Grandfather Maternal Grandmother Maternal Uncle Mother Paternal Aunt 1 Paternal Aunt 2 Sister Social History Tobacco Use Types Packs/Day Years Used Date Smoking Tobacco: Former Cigarettes 04 20 Smokeless Tobacco: Never Tobacco Cessation:Counseling Given: Not Answered Alcohol Use Standard Drinks/Week Comments Yes 0 (1 standard drink = 0.6 oz pur e alcohol) ocassionally Comments No Sex and Gender Information Value Date Recorded Sex Assigned at Not on file Legal Sex Female 10:22 PM CDT Gender Identity Not on file Sexual Orientation Not on file Last Filed Vital Signs Vital Sign Reading Time Taken Comments Blood Pressure 120/76 06/13/2024 2:53 PM CDT Pulse 56 06/13/2024 2:53 PM CDT Temperature 36.7 C (98 F) 06/13/2024 2:53 PM CDT Respiratory Rate 16 06/13/2024 2:53 PM CDT Oxygen Saturation 96% 06/13/2024 2:53 PM CDT Inhaled Oxygen Concentration - - Weight 84.9 kg (187 lb 1.6 oz) 06/13/2024 2:53 P M CDT Height 160 cm (5' 3) 06/13/2024 2:53 PM CDT Body Mass Index 33.14 06/13/2024 2:53 PM CDT Plan of Treatment Upcoming Encounters Date Type Department Care Team (Late st Contact Info) Description 11/17/2024 10:15 AM CDT [facility] [address] [place] [address] Sarah Palafox, CONTRACT WRITER, [employer] [address] [place] [address] Discharge Disposition: Discharged to home or Selfcare 11/17/2024 10:45 AM CDT [facility]ment [facility] [address] [place] [address] Sarah Palafox, CONTRACT WRITER, [employer] [address] [place] [address] Discharge Disposition: Discharged to home or Selfcare 12/14/2024 2:40 PM CDT [facility] [address] [place] [address] Sanchez Phillips MD [address] [place] [address] Discharge Disposition: Discharged to home or Selfcare 12/14/2024 3:00 PM CDT Clinical Support [facility] On[facility] Services [address] [place] [phone] Sanchez Phillips MD [address] [place] [address] Discharge Disposition: Discharged to home or Selfcare Health Maintenance Due Date Last Done Comments Hepatitis C Virus (HCV) Screening 1960 TdaP Immunization 1960 Pneumococcal Immunization (50+ years) (1 of 2 - PCV) 08/04/1978 Zoster Immunization (1 of 2) 08/04/1978 Pap Smear 08/04/1980 Cervical Cancer Screening (CCS) 08/04/1989 HPV/Cotest 08/04/1989 Cologuard 08/04/2004 Colonoscopy 08/04/2004 Colorectal Cancer Screening 08/04/2004 Immunochemical Fecal Occult Blood 08/04/2004 Respiratory Syncytial Virus (RSV) Immunization (Adult) (1 - Risk 60-74 years 1-dose series) 2019 DEXA Bone Density 10/25/2023 10/24/2021, 11/12/2016 SARS-COV-2 Immunization ( season) 2023 03/20/2021, 06/08/2020 Mammogram 11/15/2024 11/16/2023, 10/05, 10/24/2021, Additional history exists Influenza Immunization (Season Ended) 2024 03/13/2022 Hepatitis B Immunization Aged Out No longer eligible based on patient's age to complete this topic Human Papillomavirus (HPV) Immunization Aged Out No longer eligible based on patient's age to complete this topic Meningococcal Immunization (ACWY) Aged Out No longer eligible based on patient's age to complete this topic Rotavirus Immunization Aged Out No lo nger eligible based on patient's age to complete this topic Procedures Procedure Name Priority Date/Time Associated Diagnosis Comments DIMITRI SCREENING BILATERAL DIGITAL W CAD W EMMA Routine 11/16/2023 12:34 PM CDT History of breast cancer DIMITRI BONE DENSITOMETRY AXIAL SKELETON Routine 10/24/2021 10:22 AM CDT Use of aromatase inhibitors from Last 3 Months or Most Recently Relevant to Health Maintenance Results * DIMITRI SCREENING BILATERAL DIGITAL W CAD W EMMA (11/16/2023 12:34 PM CDT) Anatomical Region Laterality Modality breast Bilateral Mammography 11/16/2023 11:5 0 AM CDT Narrative 11/17/2023 10:13 AM CDT - DIMITRI SCREENING BILATERAL DIGITAL W CAD W EMMA BILATERAL DIGITAL SCREENING MAMMOGRAM 3D/2D WITH CAD WITH MEDIOLATERAL OBLIQUE CRANIOCAUDAL: 11/16/2023 The study was acquired using digital technology and interpreted from soft copy. Current study was also evaluated with SupplierSync version 7.2. 2D digital mammographic views, as well as 3D digital tomosynthesis were performed in the CC and MLO projections. CLINICAL: Routine screening. Patient has no complaints. Previous history of left breast cancer. Mother with postmenopausal breast cancer. Maternal aunt had breast cancer. Two paternal aunts had breast cancer. COMPARISONS: Comparison is made to exams dated: 10/27/2022, 10/24/2021, 10/15/2020, [facility] BREAST TISSUE:There are scattered fibroglandular densities in both breasts. FINDINGS: There are benign post operative findings in the left breast. No significant masses, calcifications, or other findings are seen in either breast. There has been no significant interval change. IMPRESSION: BI-RAD 2 BENIGN There is no mammographic evidence of malignancy. A 1 year screening mammogram is recommended. A letter will be sent to the patient with these results. The patient will be entered into a reminder system with a target due date of 1 year for her next screening exam. Electronically signed by: Renee hall/ascencion:11/16/2023 17:21:50 Farm Consultant(s): RT Eren(R)(M), [facility] letter sent: Normal Exam Reading location: [facility] BI-RADS: 2 Benign Procedure Note Renee Kerr MD - 11/17/2023 - DIMITRI SCREENING BILATERAL DIGITAL W CAD W EMMA BILATERAL DIGITAL SCREENING MAMMOGRAM 3D/2D WITH CAD WITH MEDIOLATERAL OBLIQUE CRANIOCAUDAL: 11/16/2023 The study was acquired using digital technology and interpreted from soft copy. Current study was also evaluated with ICAD version 7.2. 2D digital mammographic views, as well as 3D digital tomosynthesis were performed in the CC and MLO projections. CLINICAL: Routine screening. Patient has no complaints. Previous history of left breast cancer. Mother with postmenopausal breast cancer. Maternal aunt had breast cancer. Two paternal aunts had breast cancer. COMPARISONS: Comparison is made to exams dated: 10/27/2022, 10/24/2021, 10/15/2020, and 09/26/2019 [facility]. BREAST TISSUE:There are scattered fibroglandular densities in both breasts. FINDINGS: There are benign post operative findings in the left breast. No significant masses, calcifications, or other findings are seen in either breast. There has been no significant interval change. IMPRESSION: BI-RAD 2 BENIGN There is no mammographic evidence of malignancy. A 1 year screening mammogram is recommended. A letter will be sent to the patient with these results. The patient will be entered into a reminder system with a target due date of 1 year for her next screening exam. Electronically signed by: Renee hall/ascencion:11/16/2023 17:21:50 Farm Consultant(s): RT Eren(R)(M), [facility] letter sent: Normal Exam Reading location: [facility] BI-RADS: 2 Benign [facility] Cynthia Phillips MD IMG MAMMO ORDERABLES Fin al Result * DIMITRI BONE DENSITOMETRY AXIAL SKELETON (10/24/2021 10:22 AM CDT) Anatomical Region Laterality Modality BODY N/A Computed Radiogr aphy 10/24/2021 1:01 PM CDT Impressions 10/24/2021 1:04 PM CDT IMPRESSION: Low bone mass. 10 year risk for a major osteoporotic fracture is 8.7 %, 10 year risk for a hip fracture is 1.5 % REFERENCE: Bone mineral density: Normal (T-score above or = -1.0) Low bone mass (T-score between -1.0 and -2.5) replaces the previously used term osteopenia Osteoporosis (T-score = or below -2.5) Medical evaluation for secondary causes of low bone mineral density may be appropriate. FRAX is a World Health Organization validated fracture risk assessment tool that calculates a person's 10 year probability of a major osteoporosis related fracture and hip fracture. According to the National Osteoporosis Foundation guidelines, postmenopausal women and men age 50 or older with low bone mass and a 10 year probability of a major osteoporosis related fracture = or greater than 20% or a 10 year probability of a hip fracture = or greater than 3% should be considered for treatment. For further information, including treatment recommendations, please refer to the 2013 ISCD Official Positions (http://www.iscd.org) and the NOF's Clinician's Guide to Prevention and Treatment of Osteoporosis (http://www.nof.org/professionals/clinical-guidelines) Narrative 10/24/2021 1:04 PM CDT EXAM DESCRIPTION: [facility] BONE DENSITOMETRY AXIAL SKELETON REASON FOR STUDY: 61 y/o year old F with given history of screening. Dural Mechanic/Model: [employer] (S/N [id number]) CLINICAL INFORMATION: Current height: 62.5 inches Maximum height: 62.5 inches Weight: 183 pounds Risk factors: Tobacco user COMPARISON: None available. FINDINGS: AP LUMBAR SPINE L1-L4: Total BMD is 1.094 g/cm2 T-score is -0.8 LEFT HIP: Total BMD is 0.879 g/cm2 T-score is -1.0 Femoral neck BMD is 0.807 g/cm2 T-score is -1.7 FRAX: 10 year risk for a major osteoporotic fracture is 8.7 %, 10 year risk for a hip fracture is 1.5 % THIS IS AN ELECTRONICALLY VERIFIED FINAL REPORT 10/24/2021 1:01 PM - Electronically signed by Ok Smith M.D. AG: ARIEL Report ID: [id number] Reading Location: [id number] Procedure Note Ok Smith MD - 10/24/2021 EXAM DESCRIPTION: [facility] BONE DENSITOMETRY AXIAL SKELETON REASON FOR STUDY: 61 y/o year old F with given history of screening. Dural Mechanic/Model: [employer] (S/N [id number]) CLINICAL INFORMATION: Current height: 62.5 inches Maximum height: 62.5 inches Weight: 183 pounds Risk factors: Tobacco user COMPARISON: None available. FINDINGS: AP LUMBAR SPINE L1-L4: Total BMD is 1.094 g/cm2 T-score is -0.8 LEFT HIP: Total BMD is 0.879 g/cm2 T-score is -1.0 Femoral neck BMD is 0.807 g/cm2 T-score is -1.7 FRAX: 10 year risk for a major osteoporotic fracture is 8.7 %, 10 year risk for a hip fracture is 1.5 % THIS IS AN ELECTRONICALLY VERIFIED FINAL REPORT 10/24/2021 1:01 PM - Electronically signed by Ok Smith M.D. AG: ARIEL Report ID: [id number] Reading Location: [place] [address] IMPRESSION: Low bone mass. 10 year risk for a major osteoporotic fracture is 8.7 %, 10 year risk for a hip fracture is 1.5 % REFERENCE: Bone mineral density: Normal (T-score above or = -1.0) Low bone mass (T-score between -1.0 and -2.5) replaces the previously used term osteopenia Osteoporosis (T-score = or below -2.5) Medical evaluation for secondary causes of low bone mineral density may be appropriate. FRAX is a World Health Organization validated fracture risk assessment tool that calculates a person's 10 year probability of a major osteoporosis related fracture and hip fracture. According to the National Osteoporosis Foundation guidelines, postmenopausal women and men age 50 or older with low bone mass and a 10 year probability of a major osteoporosis related fracture = or greater than 20% or a 10 year probability of a hip fracture = or greater than 3% should be considered for treatment. For further information, including treatment recommendations, please refer to the 2013 ISCD Official Positions (http://www.iscd.org) and the NOF's Clinician's Guide to Prevention and Treatment of Osteoporosis (http://www.nof.org/professionals/clinical-guidelines) us Deanne Colon CONTRACT WRITER, [employer] IMG DEXA ORDERABLES Marilynn l Result from Last 3 Months or Most Recently Relevant to Health Maintenance [place] [address] Care Teams Acid Strength Inspector Relationship Specialty Start Date End Date Tim Whitten [address] [place] [address] PCP - General Family Medicine 05/18/15
--- OUTSIDE RECORDS SUMMARY | 2024-10-04 09:56 | XMS_ITS | Clinical Summary ---
Author Organization [facility] [address] Address [address] [place] [address] Care Team Providers Care Wood Lathe Operator Name Role Phone iTm Whitten MD Primary Care Provider [phone] Wily Stinson MD Unavailable Allergies No known active allergies Medications aspirin [...] (fourteen) days Every 2 weeks on Sundays 5 8 Active HYDROcodone-leeann taminophen (NORCO) 7.5-325 mg [...] 03/12/2022 Assessment & Plan (03/12/2022 9:04 AM LENS INSERTER): - NSTEMI 2013 s/p YULIANA - Continue ASA, statin - Resume coreg as able PAD (peripheral artery disease) 12/18/2021 Overview (12/18/2021): Added automatically from request for surgery [id number] Assessment & Plan (03/12/2022 9:03 AM LENS INSERTER): - 03/12: s/p right fem endarterectomy and patch angioplasty - Bedrest - Maintain quiroga - PT/OT POD #1 - Pain control - Continue ASA/Stain - Monitor incisions for bleeding/hematoma - Q2 hr NV checks - Advance diet as tolerated Claudication of right lower extremity 12/18/2021 Overview (12/18/2021): Added automatically from request for surgery [id number] Lumbago 08/26/2011 Anxiety 08/26/2011 Assessment & Plan (03/12/2022 9:03 AM LENS INSERTER): - Continue home xanax Encounters Date Type Department Care Team Description 07/07/2024 Results Follow-Up [facility] Cardiology [address] [place] [address] [place] [address] Radha Payne NP US Arterial Doppler Lower Extremity Bilateral 07/06/2024 11:00 [address] CDT Ancillary Procedure [facility] Vascular and Vein Surgery at [address] [place] [address] PAD (peripheral artery disease); H/O endarterectomy from Last 3 Months Immunizations Immunization Administration Dates Next Due Influenza, Quadrivalent, Spl it, Preservative Free, Intramuscular 03/13/2022 Surgical History Surgery Date Site/Laterality Comments BREAST LUMPECTOMY 04/06/2014 - 04/05/[address] ENT PLACEMENT 04/06/2015 - 04/05/2016 CARPAL TUNNEL RELEASE 04/06/2006 - 04/05/2007 Medical History Medical History Date Comments Osteoarthritis Osteoarthritis Chronic coronary artery disease Coronary artery disease Motion sickness NSTEMI (non-ST elevated myocardial infarction) ( HCC) PAD (peripheral artery disease) Breast cancer (HCC) Anxiety Muscle weakness Cramps of lower extremity Weight loss Heart attack (HCC) Family History Medical History Relation Name Comments Diabetes Brother Cancer Father Cancer Mother Heart attack Mother Relation Name Status Comments Brother Father Mother Alive Social History Tobacco Use Types Packs/Day Years [...] on file Legal Sex Female 7:52 AM LENS INSERTER Gender Identity Not on file Sexual Orientation Not on file Obstetrics History Last Filed Vital Signs Vital Sign Reading Time Taken Comments Blood Pressure 110/58 06/22/2024 8:35 AM CDT Pulse 76 06/22/2024 8:35 AM CDT Temperature 36.9 C (98.4 F) 09/15/2022 9:54 AM CDT Respiratory Rate 16 03/13/2022 7:57 AM LENS INSERTER Oxygen Saturation 93% 06/22/2024 8:35 AM CDT Inhaled Oxygen Concentration - - Weight 83.9 kg (185 lb) 06/22/2024 8:35 AM CDT Height 157.5 cm (5' 2) 06/22/2024 8:35 AM CDT Body Mass Index 33.84 06/22/2024 8:35 AM CDT Plan of Treatment Health Maintenance Due Date Last Done Comments Cervical Cancer Screening 1960 Colon Cancer Screening-Colonoscopy 1959 Depression Screening 1960 Hepatitis C Screening 1960 DTaP/Tdap/Td Vaccine (1 - Tdap) 08/04/1970 Hepatitis B Screening 08/04/1977 Pneumococcal vaccine 65+ (1 of 2 - PCV) 08/04/1978 Zoster Vaccine (1 of 2) 08/04/1978 Fall Risk Assessment 03/13/2023 03/13/2022 Osteoporosis Screening-Bone Density Scan 10/25/2023 10/24/2021, 10/24/2021 Covid-19 Vaccine (3 - 2023-2 5 season) 2023 03/20/2021, 06/08/2020 Well Visit 65+ 08/04/2024 Breast Cancer Screening-Mammogram 11/15/2024 11/16/2023, 11/16/2023, 10/27/2022, Additional history exists Influenza Vaccine (Season Ended) 2024 03/13/20 22 Medical Devices Implanted Type Area Concrete Pourer Device Identifier Shelf Expiration Date Model / Serial / Lot [employer] Jennifer Vascu-Guard 8x.8cm Peripheral Patch Vascular Bovine Pericardium [id number] - Sna - [id number] Implanted:Qty: 1 on 03/12/2022 by Wily Stinson MD at [facility] Graft Right: Leg [employer] Jennifer [id number] 10/16/2026 [id number] / NA / [id number] Device 10ml 5fr Closure Mynx Control 2 Mode Balloon Catheter [id number] - [id number] Implanted:Qty: 1 on 01/24/2022 by Arnol Quintero MD at [facility] [employer] 09/04/2023 [id number] / / [id number] Procedures Procedure Name Priority Date/Time Associated Diagnosis [...] 12:51 PM CDT Vascular & Vein Surgery [facility] [place] [address] Lower Extremity Arterial Doppler Report Patient Name: MARIA DE JESUS CRUM K : 1960 Study Date: 07/06/2024 10:48:00 AM Gender: F Teller Vault: Halina Esparza RVT Location: [facility] Ref Provider: ARNOL QUINTERO Quality: Adequate Order Provider: ARNOL QUINTERO PROCEDURES: Arterial Report: Bilateral lower extremity arterial Doppler exam at rest. INDICATIONS: S/P endart Rt iliofemoral 03/12/22 (Wallis). HISTORY: HTN. HLD. CAD- OR S/P stent. Breast CA. Former smoker. COMPARISONS: No change compared to prior study. The previous exam was completed on 09/12/2022. MEASUREMENTS: Right Value Left Value Rt Brachial Pressure 136 mmHg Lt Brachial Pressure 134 mmHg Rt SLIP BRIDGE OPERATOR Pressure 125 mmHg Lt SLIP BRIDGE OPERATOR Pressure 145 mmHg Rt DPA Pressure 126 [...] MD - 07/07/2024 Vascular & Vein Surgery [address] [place] [address]. [place] [address] Lower Extremity Arterial Doppler Report Patient Name: MARIA DE JESUS CRUM K : 1960 Study Date: 07/06/2024 10:48:00 AM Gender: F Teller Vault: Halina Esparza RVT Location: [facility] Ref Provider: ARNOL QUINTERO Quality: Adequate Order Provider: ARNOL QUINTERO PROCEDURES: Arterial Report: Bilateral lower extremity arterial Doppler exam at rest. INDICATIONS: S/P endart Rt iliofemoral 03/12/22 (Bimal). HISTORY: HTN. HLD. CAD- OR S/P stent. Breast CA. Former smoker. COMPARISONS: No change compared to prior study. The previous exam was completed on 09/12/2022. MEASUREMENTS: Right Value Left Value Rt Brachial Pressure 136 mmHg Lt Brachial Pressure 134 mmHg Rt SLIP BRIDGE OPERATOR Pressure 125 mmHg Lt SLIP BRIDGE OPERATOR Pressure 145 mmHg Rt DPA Pressure 126 [...] Carrington MD 07/07/2024 12:50:18 PM CDT us Arnol Quintero MD IM US PROCEDURES Final Result from Last 3 Months Insurance IDPA Member Subscriber Plan / Payer ( fective 2019-Present) Name:Maria De Jesus Crum Relation to Subscriber:Self Name:Maria De Jesus Crum Payer ID:[id number] Group ID:Not on file Type:[place]ICAID [place] Address: [address] IDPA IDPA Advance Directives For more information, please contact: [phone] * Full Code (Latest Code Status on File) Date Activated Date Inactivated Comments 03/12/2022 2:37 PM 03/13/2022 4:57 PM Care Teams Wood Lathe Operator Relationship Specialty Start Date End Date Tim Whitten MD PCP - General 07/26/13 [place] [address] [facility] [address] [place] [address] Consulting Physician Vascular Surgery 03/13/22
--- OUTSIDE RECORDS SUMMARY | 2024-10-04 09:56 | XMS_ITS ---
Author Organization [facility] Address [address] [place] [address] Phone Care Team Providers Care Copy Lathe Operator Name Role Phone Tim Whitten Primary Care Provider [phone] Active Problems Problem Noted Date Diagnosed Date Carcinoma of upper-inner maura drant of left breast in female, estrogen receptor positive 07/23/2019 History of breast cancer 01/09/2017 Use of aromatase inhibitors 01/09/2017 Osteopenia Overview (03/07/2015): postmenopausal Encounter for screening mamm ogram for malignant neoplasm of breast Current Treatment and Therapy Plans No current plan information found. Other Current Plans SUPPORT - PROLIA (DENOSUMAB) - OSTEOPENIA* Plan Start Date:01/11/2019 Plan Provider:Sanchez Phillips MD Linked Problems Osteopenia, unspecified loca tion Treatment Medications No medications scheduled. Past Treatment and Therapy Plans ONCOLOGY SUPPORTIVE CARE Plan Name Start Date Discontinue Date Treatment Medications Discontinue Reason Plan Provider Cycles SUPPORT - PROLIA (DENOSUMAB) 11/15/2014 06/23/2016 No medications scheduled. Therapy Complete Sanchez Phillips MD -1 of 5 cycles Resolved Problems Problem Noted Date Diagnosed Date Resolved Date Breast cancer, left breast 06/23/2016 1 Breast cancer, left breast 06/23/2016 1 Carcinoma of upper-inner maura drant of left female breast 03/19/2016 01/09/2017 Breast cancer 02/20/2015 03/19/2016 Overview (03/07/2015): Left breast, pathological stage T1bN0, largest size 0.9 cm, [place] +ve, [place] +ve and HER2 negative. -- Status post [...]
--- OUTSIDE RECORDS SUMMARY | 2024-10-04 09:56 | XMS_ITS | Encounter Summary ---
Author Organization [facility] Address [address] [facility] [place] [address] Phone Care Team Providers Care Booth Operator Name Role Phone Tim Whitten Primary Care Provider [phone] Reason for Visit * Reason Comments Medication Refill Encounter Details Date Type Department Care Team (Late st Contact Info) Description 07/03/2022 Refill [facility] Oncology Services [address] [place] [address] Sanchez Phillips MD [address] [place] [address] Medication Refill Social History Tobacco Use Types Packs/Day Years Used Date Smoking Tobacco: Former Cigarettes 1 15 Smokeless Tobacco: Never Alcohol Use Standard Drinks/Week Comments Yes 0 (1 standard drink = 0.6 oz pur e alcohol) ocassionally Comments No Sex and Gender Information Value Date Recorded Sex Assigned at Not on file Legal Sex Female 10:22 PM CDT Gender Identity Not on file Sexual Orientation Not on file documented as of this encounter Miscellaneous Notes * Telephone Encounter - Minnie Ford RN - 07/03/2022 1:03 PM CDT Per last note from Dr. Phillips on 10/24/21 continue Anastrozole 1mg. Next FU scheduled for 11/24/22. Refill sent. documented in this encounter Plan of Treatment Upcoming Encounters Date Type Department Care Team (Late st Contact Info) Description 11/17/2024 10:15 AM CDT [facility]ment [facility] [address] [place] [address] Sarah Palafox, CHIROPRACTIC CARE, LANDSCAPE LABORER [address] [place] [address] Discharge Disposition: Discharged to home or Selfcare 11/17/2024 10:[address] [facility] Mammography [address] [place] [address] Sarah Palafox, CHIROPRACTIC CARE, LANDSCAPE LABORER [address] [place] [address] Discharge Disposition: Discharged to home or Selfcare 12/14/2024 2:40 PM CDT Office Visit [facility] Oncology Services [address] [place] [address] Sanchez Phillips MD [address] [place] [address] Discharge Disposition: Discharged to home or Selfcare 12/14/2024 3:00 PM CDT Clinical Support [facility] Oncology Services [address] [place] [address] Sanchez Phillips MD [address] [place] [address] Discharge Disposition: Discharged to home or Selfcare documented as of this encounter Visit Diagnoses Diagnosis Carcinoma of upper-inner quadrant of left breast in female, estrogen receptor positive (HCC) documented in this encounter Care Teams Booth Operator Relationship Specialty Start Date End Date Tim Whitten: [phone] [address] [place] [address] PCP - General Family Medicine 05/18/15 documented as of this encounter
--- OUTSIDE RECORDS SUMMARY | 2024-10-04 09:56 | XMS_ITS | Encounter Summary ---
Author Organization [facility] Address [address] [facility] [place] [address] Phone Care Team Providers Care Electron Tube Assembler Name Role Phone Tim Whitten Primary Care Provider [phone] Reason for Visit * Reason Comments Medication Refill Encounter Details Date Type Department Care Team (Late st Contact Info) Description 03/02/2022 Refill [facility] Oncology Services [address] [place] [address] Sanchez Phillips MD [address] [place] [address] Medication Refill Social History Tobacco [...] encounter Miscellaneous Notes * Telephone Encounter - Leanne Morris RN - 03/03/2022 4:09 PM CST Refilled Arimidex per last f/u note. 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 documented in this encounter Plan of Treatment Upcoming Encounters Date Type Department Care Team (Late st Contact Info) Description 11/17/2024 10:15 AM CDT Appointment [facility] Mammography [address] [place] [address] Sarah Palafox, MATERIAL LIAISON, JEWELSMITH [address] [place] [address] Discharge Disposition: Discharged to home or Selfcare 11/17/2024 10:45 AM CDT Appointment [facility] Mammography [address] [place] [address] Sarah Palafox, MATERIAL LIAISON, JEWELSMITH [address] [place] [address] Discharge Disposition: Discharged to home or Selfcare 12/14/2024 2:40 PM CDT Office Visit [facility] Oncology Services [address] [place] [phone] Sanchez Phillips MD [address] [place] [address] Discharge Disposition: Discharged to home or Selfcare 12/14/2024 3:00 PM CDT Clinical Support [facility] Oncology Services [address] [place] [address] Sanchez Phillips MD [address] [place] [address] Discharge Disposition: Discharged to home or Selfcare documented as of this encounter Visit Diagnoses Diagnosis Carcinoma of upper-inner quadrant of left breast in female, estrogen receptor positive (HCC) documented in this encounter Care Teams Electron Tube Assembler Relationship Specialty Start Date End Date Tim Whitten [address] [place] [address] PCP - General Family Medicine 05/18/15 documented as of this encounter
--- OUTSIDE RECORDS SUMMARY | 2024-10-04 09:56 | XMS_ITS | Continuity of Care Document ---
Author Organization [facility] Address [address] [place] [address] [place] [address] Phone Care Team Providers Care Hr Generalist Name Role Phone Tim Whitten MD Unavailable Unavailable Allergies, Adverse Reactions, Alerts Substance Reaction Status Criticality No Known Allergies Active No Inform ation Medications Medication Instructions Dosage Effective Dates (start - stop) Status Comments Xanax 1 mg tablet take 1 tablet by oral route 2 times every day as needed 1 MG - Active avoid driving or operate machines, PRN for anxiety hydrocodone 5 mg-acetaminophen 325 mg tablet take 1 tablet by oral route every 6 hours as needed for pain as needed 1.00 tablet - Active PRN for pain, avoid driving or operate machines Cymbalta 60 mg capsule,delayed release take 1 capsule by oral route every day 60 MG - Active Coreg 12.5 mg tablet take 1 tablet by oral route 2 times every day with food 12.5 MG - Active lisinopril 2.5 mg tablet take 1 tablet by oral route every day 2.5 MG - Active Crestor 20 mg tablet take 1 tablet by oral route every day 20 MG - Active Vitamin D2 1,250 mcg (50,000 unit) capsule take 1 capsule by oral route every other week - Active albuterol sulfate HFA 90 mcg/actuation aerosol inhaler inhale 1 puff by inhalation route every 4 - 6 hours as needed as needed 1 puff - Active PRN for sob naloxone 0.4 mg/mL injection syringe inject 1 milliliter by intravenous route over once, may repeat at 2 to 3 minute intervals as needed - Active PRN for OD Prolia 60 mg/mL subcutaneous syringe inject 1 milliliter by subcutaneous route every 6 months in the upper arm, upper thigh or abdomen 60 MG - Active Arimidex 1 mg tablet take 1 tablet by oral route every day 1 MG - Active Procedures Procedure Date PREV VISIT, EST, 65 & OVER OFFICE/OUTPATIENT VISIT, EST PREV VISIT, EST, AGE 40-64 OFFICE/OUTPATIENT VISIT, EST OFFICE/OUTPATIENT VISIT, EST OFFICE/OUTPATIENT VISIT, EST OFFICE/OUTPATIENT VISIT, EST OFFICE/OUTPATIENT VISIT, EST OFFICE/OUTPATIENT VISIT, EST OFFICE/OUTPATIENT VISIT, EST OFFICE/OUTPATIENT VISIT, EST OFFICE/OUTPATIENT VISIT, EST OFFICE/OUTPATIENT VISIT, EST OFFICE/OUTPATIENT VISIT, EST OFFICE/OUTPATIENT VISIT, EST OFFICE/OUTPATIENT VISIT, EST OFFICE/OUTPATIENT VISIT, EST OFFICE/OUTPATIENT VISIT, EST OFFICE/OUTPATIENT VISIT, EST OFFICE/OUTPATIENT VISIT, EST OFFICE/OUTPATIENT VISIT, EST OFFICE/OUTPATIENT VISIT, EST PREV VISIT, EST, AGE 40-64 OFFICE/OUTPATIENT VISIT, EST OFFICE/OUTPATIENT VISIT, EST OFFICE/OUTPATIENT VISIT, EST OFFICE/OUTPATIENT VISIT, EST OFFICE/OUTPATIENT VISIT, EST OFFICE/OUTPATIENT VISIT, EST OFFICE/OUTPATIENT VISIT, EST OFFICE/OUTPATIENT VISIT, EST OFFICE/OUTPATIENT VISIT, EST OFFICE/OUTPATIENT VISIT, EST OFFICE/OUTPATIENT VISIT, EST PREV VISIT, EST, AGE 40-64 OFFICE/OUTPATIENT VISIT, EST OFFICE/OUTPATIENT VISIT, EST OFFICE/OUTPATIENT VISIT, EST OFFICE/OUTPATIENT VISIT, EST OFFICE/OUTPATIENT VISIT, EST OFFICE/OUTPATIENT VISIT, EST OFFICE/OUTPATIENT VISIT, EST OFFICE/OUTPATIENT VISIT, EST OFFICE/OUTPATIENT VISIT, EST OFFICE/OUTPATIENT VISIT, EST OFFICE/OUTPATIENT VISIT, EST PREV VISIT, EST, AGE 40-64 OFFICE/OUTPATIENT VISIT, EST OFFICE/OUTPATIENT VISIT, EST OFFICE/OUTPATIENT VISIT, EST OFFICE/OUTPATIENT VISIT, EST OFFICE/OUTPATIENT VISIT, EST OFFICE/OUTPATIENT VISIT, EST OFFICE/OUTPATIENT VISIT, EST OFFICE/OUTPATIENT VISIT, EST OFFICE/OUTPATIENT VISIT, EST OFFICE/OUTPATIENT VISIT, EST OFFICE/OUTPATIENT VISIT, EST OFFICE/OUTPATIENT VISIT, EST OFFICE/OUTPATIENT VISIT, EST OFFICE/OUTPATIENT VISIT, EST OFFICE/OUTPATIENT VISIT, EST OFFICE/OUTPATIENT VISIT, EST PREV VISIT, EST, AGE 40-64 OFFICE/OUTPATIENT VISIT, EST OFFICE/OUTPATIENT VISIT, EST OFFICE/OUTPATIENT VISIT, EST OFFICE/OUTPATIENT VISIT, EST OFFICE/OUTPATIENT VISIT, EST OFFICE/OUTPATIENT VISIT, EST OFFICE/OUTPATIENT VISIT, EST OFFICE/OUTPATIENT VISIT, EST OFFICE/OUTPATIENT VISIT, EST OFFICE/OUTPATIENT VISIT, EST OFFICE/OUTPATIENT VISIT, EST PREV VISIT, EST, AGE 40-64 OFFICE/OUTPATIENT VISIT, EST OFFICE/OUTPATIENT VISIT, EST OFFICE/OUTPATIENT VISIT, EST OFFICE/OUTPATIENT VISIT, EST OFFICE/OUTPATIENT VISIT, EST OFFICE/OUTPATIENT VISIT, EST OFFICE/OUTPATIENT VISIT, EST OFFICE/OUTPATIENT VISIT, EST OFFICE/OUTPATIENT VISIT, EST OFFICE/OUTPATIENT VISIT, EST OFFICE/OUTPATIENT VISIT, EST OFFICE/OUTPATIENT VISIT, EST PREV VISIT, EST, AGE 40-64 OFFICE/OUTPATIENT VISIT, EST OFFICE/OUTPATIENT VISIT, EST OFFICE/OUTPATIENT VISIT, EST OFFICE/OUTPATIENT VISIT, EST OFFICE/OUTPATIENT VISIT, EST OFFICE/OUTPATIENT VISIT, EST OFFICE/OUTPATIENT VISIT, EST OFFICE/OUTPATIENT VISIT, EST OFFICE/OUTPATIENT VISIT, EST OFFICE/OUTPATIENT VISIT, EST OFFICE/OUTPATIENT VISIT, EST OFFICE/OUTPATIENT VISIT, EST PREV VISIT, EST, AGE 40-64 OFFICE/OUTPATIENT VISIT, EST OFFICE/OUTPATIENT VISIT, EST OFFICE/OUTPATIENT VISIT, EST OFFICE/OUTPATIENT VISIT, EST OFFICE/OUTPATIENT VISIT, EST OFFICE/OUTPATIENT VISIT, EST OFFICE/OUTPATIENT VISIT, EST OFFICE/OUTPATIENT VISIT, EST PREV VISIT, EST, AGE 40-64 OFFICE/OUTPATIENT VISIT, EST OFFICE/OUTPATIENT VISIT, EST OFFICE/OUTPATIENT VISIT, EST OFFICE/OUTPATIENT VISIT, EST OFFICE/OUTPATIENT VISIT, EST PREV VISIT, EST, AGE 40-64 OFFICE/OUTPATIENT VISIT, EST OFFICE/OUTPATIENT VISIT, EST OFFICE/OUTPATIENT VISIT, EST OFFICE/OUTPATIENT VISIT, EST OFFICE/OUTPATIENT VISIT, EST OFFICE/OUTPATIENT VISIT, EST OFFICE/OUTPATIENT VISIT, EST OFFICE/OUTPATIENT VISIT, EST OFFICE/OUTPATIENT VISIT, EST OFFICE/OUTPATIENT VISIT, EST OFFICE/OUTPATIENT VISIT, EST OFFICE/OUTPATIENT VISIT, EST OFFICE/OUTPATIENT VISIT, EST OFFICE/OUTPATIENT VISIT, EST PREV VISIT, NEW, AGE 40-64 OFFICE/OUTPATIENT VISIT, NEW Advance Directives Directive Yes / No Effective Date File Name No Information Encounters Encounter Description Practice Location Reason(s) For Visit Diagnoses Date Provider Providers Copied on Encounter PREV VISIT, EST, 65 & OVER [facility], [address], [place], [place], [address], [place] tel:[phone] [facility] Medicine physical (chief complaint) Encounter for general adult medical examination without abnormal findings 5 Fish Dumont. [address], [place], [place], [address] , [place]. tel:[phone] OFFICE/OUTPA TIENT VISIT, [facility], [place], operated [facility], [address], [place], [place], [address], [place] tel:[phone] [facility] anxiety1 (chief complaint)pain (chief complaint) Chronic pain syndromeGeneral ized anxiety disorder 5 Fish Mclean [address], [place], [place], [address] , [place]. tel:[phone] PREV VISIT, EST, AGE 40-64 [facility], [address], [place], [place], [address], [place] tel:[phone] [facility] Medicine physical (chief complaint) Encounter for general adult medical examination without abnormal findings 5 Fish Dumont. [address], [place], [place], [address] , [place]. tel: [phone] OFFICE/OUTPA TIENT VISIT, [facility], [place], operated [facility], [address], [place], [place], [address], [place] tel:[phone] [facility] anxiety1 (chief complaint)pain (chief complaint)HTN (chief complaint)HLP (chief complaint) Mixed hyperlipidemiaC hronic pain syndromeGeneral ized anxiety disorderEssenti al (primary) hypertension 5 Fish Dumont. [address], [place], [place], [address] , [place]. tel:[phone] OFFICE/OUTPA TIENT VISIT, [facility], [place], operated [facility], [address], [place], [place], [address], [place] tel:[phone] [facility] anxiety1 (chief complaint)pain (chief complaint)HLP (chief complaint) Chronic pain syndromeGeneral ized anxiety disorderMixed hyperlipidemia 0 4 Fish Dumont. [address], [place], [place], [address] , [place]. tel:[phone] OFFICE/OUTPA TIENT VISIT, [facility], [place], operated [facility], [address], [place], [place], [address], [place] tel:[phone] [facility] anxiety1 (chief complaint)pain (chief complaint)ramirez gle1 (chief complaint)itch ing1 (chief complaint) Generalized anxiety disorderChronic pain syndromeOther specified disorder of bone densityZoster without complicationsDr y skin dermatitis 4 Fish Dumont. [address], [place], [place], [address] , [place]. [phone] OFFICE/OUTPA TIENT VISIT, [facility], [place], operated [facility], [address], [place], [place], [address], [place] tel:[phone] [facility] anxiety1 (chief complaint) Generalized anxiety disorder 4 Fish Dumont. [address], [place], [place], [address] , [place]. tel:[phone] OFFICE/OUTPA TIENT VISIT, [facility], [place], operated [facility], [address] [place], [address], [place] tel:[phone] [facility] anxiety1 (chief complaint)pain (chief complaint)cold sore1 (chief complaint) Chronic pain syndromeGeneral ized anxiety disorderHerpes simplex labialis Sep- 4 Fish Dumont. [address], [place], [place], [address] , [place]. tel:[phone] OFFICE/OUTPA TIENT VISIT, [facility], [place], operated [facility], [address] [place], [place], [address], [place] tel:[phone] [facility] anxiety1 (chief complaint)back pain1 (chief complaint)CAD (chief complaint)emph ysema1 (chief complaint) Generalized anxiety disorderCentril obular emphysemaChroni c pain syndromeCoronar y artery disease of circle coronary artery without angina pectoris 4 Fish Dumont. [address], [place], [place], [address] , [place]. tel:[phone] OFFICE/OUTPA TIENT VISIT, [facility], [place], operated [facility], [address] [place], [place], [address], [place] tel:[phone] [facility] anxiety1 (chief complaint)SOB (chief complaint)back pain1 (chief complaint) Centrilobular emphysemaGenera lized anxiety disorder 4 Fish Dumont. [address], [place], [place], [address] , [place]. tel:[phone] OFFICE/OUTPA TIENT VISIT, [facility], [place], operated [facility], [address] [place], [place], [address], [place] tel:[phone] [facility] anxiety1 (chief complaint)back pain1 (chief complaint)weig ht gain1 (chief complaint)sob (chief complaint) Chronic pain syndromeGeneral ized anxiety disorderCentril obular emphysemaAbnorm al weight gain 4 Fish Dumont. [address], [place], [place], [address] , [place]. tel:[phone] OFFICE/OUTPA TIENT VISIT, [facility], [place], operated [facility], [address] [place], [place], [address], [place] tel:[phone] [facility] anxiety1 (chief complaint)back pain1 (chief complaint)oste openia1 (chief complaint) Chronic pain syndromeGeneral ized anxiety disorderOther specified disorder of bone densityPersonal history of nicotine dependence 4 Fish Dumont. [address], [place], [place], [address] , [place]. tel:[phone] OFFICE/OUTPA TIENT VISIT, [facility], [place], operated [facility], [address] [place], [place], [address], [place] tel:[phone] [facility] anxiety1 (chief complaint)pain (chief complaint)emph ysema1 (chief complaint) Chronic pain syndromeGeneral ized anxiety disorderCentril obular emphysemaOsteop orosis 4 Fish Dumont. [address], [place], [place], [address] , [place]. tel:[phone] OFFICE/OUTPA TIENT VISIT, [facility], [place], operated [facility], [address] [place], [place], [address], [place] tel:[phone] [facility] anxiety1 (chief complaint)pain (chief complaint)oste openia1 (chief complaint)HTN (chief complaint) Chronic pain syndromeGeneral ized anxiety disorderOsteopo rosisEssential (primary) hypertension 4 Fish Dumont. [address], [place], [place], [address] , [place]. tel:[phone] OFFICE/OUTPA TIENT VISIT, [facility], [place], operated [facility], [address] [place], [place], [address], [place] tel:[phone] [facility] anxiety1 (chief complaint)pain (chief complaint)HLP (chief complaint) Chronic pain syndromeGeneral ized anxiety disorderMixed hyperlipidemia 4 Fish Dumont. [address], [place], [place], [address] , [place]. tel:[phone] OFFICE/OUTPA TIENT VISIT, [facility], [place], operated [facility], [address] [place], [place], [address], [place] tel:[phone] [facility] anxiety1 (chief complaint)pain (chief complaint) Chronic pain syndromeGeneral ized anxiety disorder 3 Fihs Dumont. [address], [place], [place], [address] , [place]. tel:[phone] OFFICE/OUTPA TIENT VISIT, [facility], [place], operated [facility], [address], [place], [place], [address], [place] tel:[phone] [facility] pain (chief complaint)anxi ety1 (chief complaint)HLP (chief complaint) Chronic pain syndromeGeneral ized anxiety disorderMixed hyperlipidemia 3 Fish Dumont. [address], [place], [place], [address] , [place]. tel:[phone] OFFICE/OUTPA TIENT VISIT, [facility], [place], [facility], [address], [place], [place], [address], [place] tel:[phone] [facility] pain (chief complaint)anxi ety1 (chief complaint) Chronic pain syndromeGeneral ized anxiety disorder 3 Fish Dumont. [address], [place], [place], [address] , [place]. tel:[phone] OFFICE/OUTPA TIENT VISIT, [facility], [place], [facility], [address], [place], [place], [address], [place] tel:[phone] [facility] pain (chief complaint)anxi ety1 (chief complaint) Generalized anxiety disorderChronic pain syndrome 3 Fish Dumont. [address], [place], [place], [address] , [place]. tel:[phone] OFFICE/OUTPA TIENT VISIT, [facility], [place], [facility], [address], [place], [place], [address], [place] tel:[phone] [facility] pain (chief complaint)anxi ety1 (chief complaint) Chronic pain syndromeGeneral ized anxiety disorder 3 Fish Dumont. [address], [place], [place], [address] , . tel:[phone] OFFICE/OUTPA TIENT VISIT, EST [facility], [address] [place], [address], [place] tel:[phone] [facility] Medicine glucose1 (chief complaint)KCL (chief complaint)anxi ety1 (chief complaint)pain (chief complaint) HyperglycemiaCh ronic pain syndromeGeneral ized anxiety disorderHyperka lemia 3 Fish Dumont. [address], [place], [place], [address] , [place]. [phone] OFFICE/OUTPA TIENT VISIT, EST [facility], [address], [place], [place], [address], [place] tel:[phone] [facility] anxitey1 (chief complaint)pain (chief complaint)DM (chief complaint) Type 2 diabetes mellitus without complicationsMi xed hyperlipidemiaH yponatremiaChro tita pain syndromeGeneral ized anxiety disorder 3 Fish Dumont. [address], [place], [place], [address] , [place]. [phone] PREV VISIT, EST, AGE 40-64 [facility], [address] [place], [place], [address], [place] tel:[phone] [facility] Medicine physical (chief complaint) Encounter for general adult medical examination without abnormal findings 3 Fish Dumont. [address], [place], [place], [address] , [place]. tel:[phone] OFFICE/OUTPA TIENT VISIT, EST [facility], [address] [place], [place], [address], [place] tel:[phone] [facility] Medicine anxiety1 (chief complaint)pain (chief complaint)emph ysema1 (chief complaint) Centrilobular emphysemaChroni c pain syndromeGeneral ized anxiety disorderTobacco use 3 Fish Dumont. [address], [place], [place], [address] , [place]. tel:[phone] OFFICE/OUTPA TIENT VISIT, [facility], [place], operated [facility], [address], [place], [place], [address], [place] tel:[phone] [facility] anxiety1 (chief complaint)pain (chief complaint) Chronic pain syndromeGeneral ized anxiety disorder 3 Fish Dumont. [address], [place], [place], [address] , [place]. 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 [address], [place], [place], [address] , [place]. tel:[phone] OFFICE/OUTPA TIENT VISIT, [facility], [place], [facility], [address], [place], [place], [address], [place] tel:[phone] [facility] anxiety1 (chief complaint)pain (chief complaint)oste openia1 (chief complaint)HTN (chief complaint) Chronic pain syndromeGeneral ized anxiety disorderEssenti al (primary) hypertensionOth er specified disorder of bone structure 3 Fish Dumont. [address], [place], [place], [address] , [place]. tel:[phone] OFFICE/OUTPA TIENT VISIT, [facility], [place], [facility], [address], [place], [place], [address], [place] tel:[phone] [facility] HLP (chief complaint)anxi ety1 (chief complaint)pain (chief complaint)PAD (chief complaint) Chronic pain syndromeGeneral ized anxiety disorderPeriphe ral vascular disease, unspecifiedMixe d hyperlipidemia 2 Fish Dumont. [address], [place], [place], [address] , [place]. tel:[phone] OFFICE/OUTPA TIENT VISIT, [facility], [place], [facility], [address], [place], [place], [address], [place] tel:[phone] [facility] pain (chief complaint)anxi ety1 (chief complaint)PAD (chief complaint) Chronic pain syndromeGeneral ized anxiety disorderPeriphe ral vascular disease 2 Whitten Tim. [address], [place], [place], [address] , [place]. tel:[phone] OFFICE/OUTPA TIENT VISIT, [facility], [place], [facility], [address], [place], [place], [address], [place] tel:[phone] [facility] pain (chief complaint)anxi ety1 (chief complaint) Chronic pain syndromeGeneral ized anxiety disorder 2 Fish Dumont. [address], [place], [place], [address] , [place]. [phone] OFFICE/OUTPA TIENT VISIT, [facility], [place], [facility], [address], [place], [place], [address], [place] tel:[phone] [facility] pain (chief complaint)anxi ety1 (chief complaint) Chronic pain syndromeGeneral ized anxiety disorder 2 Whitten Tim. [address], [place], [place], [address] , [place]. [phone] OFFICE/OUTPA TIENT VISIT, [facility], [place], [facility], [address], [place], [place], [address], [place] tel:[phone] [facility] pain (chief complaint)anxi ety1 (chief complaint) Chronic pain syndromeGeneral ized anxiety disorder 2 Whitten Tim. [address], [place], [place], [address] , [place]. tel:[phone] OFFICE/OUTPA TIENT VISIT, [facility], [place], [facility], [address], [place], [place], [address], [place] tel:[phone] [facility] pain (chief complaint)anxi ety1 (chief complaint) Chronic pain syndromeGeneral ized anxiety disorder 2 Fish Dumont. [address], [place], [place], [address] , [place]. tel:[phone] OFFICE/OUTPA TIENT VISIT, EST [facility], [address], [place], [place], [address], [place] tel:[phone] [facility] pain (chief complaint)anxi ety1 (chief complaint) Chronic pain syndromeGeneral ized anxiety disorder Royer- 2 Fish Dumont. [address], [place], [place], [address] , [place]. tel:[phone] PREV VISIT, EST, AGE 40-64 [facility], [address], [place], [place], [address], [place] tel:[phone] [facility] physical (chief complaint) Encounter for general adult medical examination without abnormal findings 2 Fish Dumont. [address], [place], [place], [address] , [place]. tel:[phone] OFFICE/OUTPA TIENT VISIT, [facility], [place], [facility], [address], [place], [place], [address], [place] tel:[phone] [facility] pain (chief complaint)anxi ety1 (chief complaint)TG (chief complaint)gluc ose1 (chief complaint) HyperlipidemiaH yperglycemiaChr onic pain syndromeGeneral ized anxiety disorder Jul-0 2 Fish Dumont. [address], [place], [place], [address] , [place]. tel:[phone] OFFICE/OUTPA TIENT VISIT, [facility], [place], [facility], [address], [place], [place], [address], [place] tel:[phone] [facility] pain (chief complaint)anxi ety1 (chief complaint)colo n polyp1 (chief complaint) Chronic pain syndromeGeneral ized anxiety disorderPolyp of colon Jun- 2 Fish Dumont. [address], [place], [place], [address] , [place]. [phone] OFFICE/OUTPA TIENT VISIT, [facility], [place], [facility], [address], [place], [place], [address], [place] tel:[phone] [facility] pain (chief complaint)anxi ety1 (chief complaint) Chronic pain syndromeGeneral ized anxiety disorder 0 2 Fish Dumont. [address], [place], [place], [address] , [place]. [phone] OFFICE/OUTPA TIENT VISIT, [facility], [place], [facility], [address] [place], [address], [place] tel:[phone] [facility] pain (chief complaint)annx iety1 (chief complaint)HTN (chief complaint)HLP (chief complaint) Generalized anxiety disorderHyperli pidemiaEssentia l (primary) hypertensionChr onic pain syndromeEncount er for screening for malignant neoplasm of colon 1 Fish Mclean [address], [place], [place], [address] , [place]. [phone] OFFICE/OUTPA TIENT VISIT, [facility], [place], [facility], [address] [place], [place], [address], [place] tel:[phone] [facility] pain (chief complaint)anxi ety1 (chief complaint)oste openia1 (chief complaint) Generalized anxiety disorderChronic pain syndromeOther specified disorder of bone density 1 Fish Dumont. [address], [place], [place], [address] , [place]. tel:[phone] OFFICE/OUTPA TIENT VISIT, [facility], [place], [facility], [address] [place], [place], [address], [place] tel:[phone] [facility] pain (chief complaint)anxi ety1 (chief complaint) Chronic pain syndromeGeneral ized anxiety disorder 1 Fish Mclean [address], [place], [place], [address] , [place]. tel:[phone] OFFICE/OUTPA TIENT VISIT, [facility], [place], [facility], [address], [place], [place], [address], [place] tel:[phone] [facility] pain (chief complaint)anxi ety1 (chief complaint)HLP (chief complaint)toba cco1 (chief complaint) Generalized anxiety disorderChronic pain syndromeTobacco useHyperlipidem ia 1 Fish Dumont. [address], [place], [place], [address] , [place]. tel:[phone] OFFICE/OUTPA TIENT VISIT, [facility], [place], [facility], [address], [place], [place], [address], tel:[phone] [facility] pain (chief complaint)anxi ety1 (chief complaint) Chronic pain syndromeGeneral ized anxiety disorderTobacco use 1 Fish Dumont. [address], [place], [place], [address] , [place]. tel:[phone] OFFICE/OUTPA TIENT VISIT, [facility], [place], operated [facility], [address] [place], [place], [address], [place] tel:[phone] [facility] pain (chief complaint)anxi ety1 (chief complaint)edson l stone (chief complaint)adre nal (chief complaint)toba cco1 (chief complaint) Chronic pain syndromeGeneral ized anxiety disorderTobacco useRenal stoneDisorder of adrenal gland, unspecified 1 Fish Dumont. [address], [place], [place], [address] , [place]. tel:[phone] OFFICE/OUTPA TIENT VISIT, [facility], [place], operated [facility], [address], [place], [place], [address], [place] tel:[phone] [facility] pain (chief complaint)anxi ety1 (chief complaint)toba cco1 (chief complaint) Chronic pain syndromeGeneral ized anxiety disorderTobacco use 1 Fish Dumont. [address], [place], [place], [address] , [place]. tel:[phone] OFFICE/OUTPA TIENT VISIT, [facility], [place], operated [facility], [address], [place], [place], [address], [place] tel:[phone] [facility] pain (chief complaint)anxi ety1 (chief complaint) Chronic pain syndromeGeneral ized anxiety disorder 1 Fish Mclean [address], [place], [place], [address] , [place]. [phone] PREV VISIT, EST, AGE 40-64 [facility], [address], [place], [place], [address], [place] tel:[phone] [facility] physical (chief complaint) Encounter for general adult medical examination without abnormal findings 1 Fish Mclean [address], [place], [place], [address] , [place]. [phone] OFFICE/OUTPA TIENT VISIT, [facility], [place], operated [facility], [address], [place], [place], [address], [place] tel:[phone] [facility] pain (chief complaint)anxi ety1 (chief complaint) Chronic pain syndromeGeneral ized anxiety disorder 1 Fish Mclean [address], [place], [place], [address] , [place]. [phone] OFFICE/OUTPA TIENT VISIT, [facility], [place], operated [facility], [address], [place], [place], [address], [place] tel:[phone] [facility] pain (chief complaint)anxi ety1 (chief complaint) Chronic pain syndromeGeneral ized anxiety disorder 1 Fish Mclean [address], [place], [place], [address] , [place]. tel:[phone] OFFICE/OUTPA TIENT VISIT, [facility], [place], operated [facility], [address], [place], [place], [address], [place] tel:[phone] [facility] pain (chief complaint)anxi ety (chief complaint)PAD (chief complaint) Chronic pain syndromeGeneral ized anxiety disorderPeriphe ral vascular disease, unspecifiedEsse ntial (primary) hypertension 1 Fish Mclean [address] [facility] [place], [place], [place], [address] , . [phone] OFFICE/OUTPA TIENT VISIT, [facility], [place], operated [facility], [address] [place], [place], [address], [place] tel:[phone] [facility] pain (chief complaint)anxi ety1 (chief complaint)PAD (chief complaint)HLP (chief complaint)adre nal nodule1 (chief complaint)oste openia1 (chief complaint) Generalized anxiety disorderChronic pain syndromeDisorde r of adrenal gland, unspecifiedHype rlipidemiaOther specified disorder of bone densityEmphysem aPeripheral vascular disease, unspecified 0 Fish Mclean [address] [facility], [place], [place], [address] , [place]. tel:[phone] OFFICE/OUTPA TIENT VISIT, [facility], [place], operated [facility], [address] [place], [place], [address], [place] tel:[phone] [facility] anxiety1 (chief complaint)pain 1 (chief complaint)PAD (chief complaint)adre nal mass1 (chief complaint) Chronic pain syndromeGeneral ized anxiety disorderDisorde r of adrenal gland, unspecifiedPeri pheral vascular disease, unspecified 0 Fish Mclean [address] [facility] [place], [address] , [place]. [phone] OFFICE/OUTPA TIENT VISIT, [facility], [place], operated [facility], [address] [place], [place], [address], [place] tel:[phone] [facility] pain (chief complaint)anxi ety1 (chief complaint)thyr oid1 (chief complaint)hypo natremia1 (chief complaint)PAD (chief complaint)gluc ose1 (chief complaint) Chronic pain syndromeGeneral ized anxiety disorderGoiterH yponatremiaHype rglycemiaDisord er of adrenal gland, unspecifiedPeri pheral vascular disease, unspecified 0 Fish Dumont. [address] [facility] [place], [place], [place], [address] , [place]. tel:[phone] OFFICE/OUTPA TIENT VISIT, [facility], [place], operated [facility], [address] [place], [address], [place] tel:[phone] [facility] pain1 (chief complaint)anxi ety1 (chief complaint)hypo natremia1 (chief complaint)thyr oid1 (chief complaint) HyponatremiaHyp okalemiaHypergl ycemiaGoiterChr onic pain syndromeGeneral ized anxiety disorder 0 Fish Mclean [address] [facility] [place], [address] , [place]. tel:[phone] OFFICE/OUTPA TIENT VISIT, [facility], [place], operated [facility], [address] [place], [address], [place] tel:[phone] [facility] adrenal mass (chief complaint)pain (chief complaint)anxi ety1 (chief complaint) Disorder of adrenal gland, unspecifiedGene ralized anxiety disorderChronic pain syndromeHyperli pidemia 0 Fish Mclean [address] [place], [address] , [place]. tel:[phone] OFFICE/OUTPA TIENT VISIT, [facility], [place], operated [facility], [address] [place], [place], [address], [place] tel:[phone] [facility] pain (chief complaint)anxi ety1 (chief complaint)PAD (chief complaint)HLP (chief complaint) Peripheral vascular disease, unspecifiedChro tita pain syndromeGeneral ized anxiety disorderHyperli pidemia 0 Fish Dumont. [address] [facility] [place], [address] , [place]. tel:[phone] OFFICE/OUTPA TIENT VISIT, [facility], [place], operated [facility], [address] [place], [place], [address], [place] tel:[phone] [facility] abd pain1 (chief complaint)ches t pain1 (chief complaint)pain (chief complaint)anxi ety1 (chief complaint) Chronic pain syndromeGeneral ized anxiety disorderAbdomin al painChest pain 0 Fish Dumont. [address], [place], [place], [address] , [place]. tel:[phone] OFFICE/OUTPA TIENT VISIT, [facility], [place], operated [facility], [address], [place], [place], [address], [place] tel:[phone] [facility] back pain1 (chief complaint)anxi ety1 (chief complaint)HLP (chief complaint)toba cco1 (chief complaint) HyperlipidemiaC hronic pain syndromeGeneral ized anxiety disorderTobacco use 0 Fish Dumont. [address], [place], [place], [address] , [place]. [phone] OFFICE/OUTPA TIENT VISIT, [facility], [place], operated [facility], [address], [place], [place], [address], [place] tel:[phone] [facility] pain (chief complaint)anxi ety1 (chief complaint) Chronic pain syndromeGeneral ized anxiety disorder 0 Fish Mclean [address], [place], [place], [address] , [place]. [phone] Referring Provider: Jim Barbosa [address], [place], [place], [address]. tel:[phone] OFFICE/OUTPA TIENT VISIT, [facility], [place], operated [facility], [address], [place], [place], [address], [place] tel:[phone] [facility] HLP (chief complaint)pain (chief complaint)anxi ety1 (chief complaint) Chronic pain syndromeGeneral ized anxiety disorderHyperli pidemia 0 Fish Mclean [address], [place], [place], [address] , [place]. tel:[phone] Referring Provider: Tim Whitten, [address], [place], [place], [address]. tel:[phone] OFFICE/OUTPA TIENT VISIT, [facility], [place], operated [facility], [address], [place], [place], [address], [place] tel:[phone] [facility] HLP (chief complaint)pain 1 (chief complaint)anxi ety1 (chief complaint)gluc ose1 (chief complaint) HyperlipidemiaG eneralized anxiety disorderChronic pain syndromeHypergl ycemia 0 Fish Dumont. [address], [place], [place], [address] , [place]. [phone] Referring Provider: Jim Barbosa [address], [place], [place], [address]. tel:[phone] OFFICE/OUTPA TIENT VISIT, [facility], [place], operated [facility], [address], [place], [place], [address], [place] tel:[phone] [facility] anxiety1 (chief complaint)pain 1 (chief complaint)HLP (chief complaint)HTN (chief complaint) Chronic pain syndromeGeneral ized anxiety disorderEssenti al (primary) hypertensionHyp erlipidemia 0 Fish Dumont. [address], [place], [place], [address] , [place]. [phone] Referring Provider: Jim Barbosa [address], [place], [place], [address]. tel:[phone] OFFICE/OUTPA TIENT VISIT, [facility], [place], operated [facility], [address], [place], [place], [address], [place] tel:[phone] [facility] anxiety1 (chief complaint)pain (chief complaint) Chronic pain syndromeGeneral ized anxiety disorder 9 Fish Dumont. [address], [place], [place], [address] , [place]. [phone] Referring Provider: Jim Barbosa [address], [place], [place], [address]. tel:[phone] PREV VISIT, EST, AGE 40-64 [facility], [address], [place], [place], [address], [place] tel:[phone] [facility] physical1 (chief complaint) Encntr for general adult medical exam w/o abnormal findings 9 Fish Dumont. [address], [place], [place], [address] , [place]. tel:[phone] Referring Provider: Jim Barbosa [address], [place], [place], [address]. tel:[phone] OFFICE/OUTPA TIENT VISIT, [facility], [place], operated [facility], [address], [place], [place], [address], [place] tel:[phone] [facility] anxiety1 (chief complaint)back pain1 (chief complaint)oste openia1 (chief complaint) Body mass index (BMI) 32.0-32.9, adultChronic pain syndromeGeneral ized anxiety disorderOther specified disorder of bone density 9 Fish Dumont. [address], [place], [place], [address] , [place]. tel:[phone] OFFICE/OUTPA TIENT VISIT, [facility], [place], operated [facility], [address], [place], [place], [address], [place] tel:[phone] [facility] chrronic pain1 (chief complaint)anxi zety1 (chief complaint)CAD1 (chief complaint)oste openia1 (chief complaint) Chronic pain syndromeGeneral ized anxiety disorderCoronar y artery disease of circle coronary artery without angina pectorisOth disrd of bone density and structure, other site 9 Fish Dumont. [address], [place], [place], [address] , [place]. tel:[phone] Referring Provider: Jim Barbosa [address], [place], [place], [address]. tel:[phone] OFFICE/OUTPA TIENT VISIT, [facility], [place], operated [facility], [address], [place], [place], [address], [place] tel:[phone] [facility] chronic pain1 (chief complaint)anxi ety1 (chief complaint) Chronic pain syndromeGeneral ized anxiety disorder 9 Fish Dumont. [address], [place], [place], [address] , [place]. [phone] Referring Provider: Jim Barbosa [address], [place], [place], [address]. 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 [address], [place], [place], [address] , [place]. [phone] Referring Provider: Jim Barbosa [address], [place], [place], [address]. tel:[phone] OFFICE/OUTPA TIENT VISIT, [facility], [place], [facility], [address], [place], [place], [address], [place] tel:[phone] [facility] chronic pain1 (chief complaint)anxi ety1 (chief complaint)COPD (chief complaint)CAD (chief complaint) Generalized anxiety disorderChronic pain syndromeEmphyse maCoronary artery disease of circle coronary artery without angina pectoris 9 Fish Dumont. [address], [place], [place], [address] , [place]. [phone] Referring Provider: Jim Barbosa [address], [place], [place], [address]. tel:[phone] OFFICE/OUTPA TIENT VISIT, [facility], [place], [facility], [address], [place], [place], [address], [place] tel:[phone] [facility] Tobacco1 (chief complaint)anxi ety1 (chief complaint)back pain1 (chief complaint) Generalized anxiety disorderChronic pain syndromeTobacco use 9 Fish Dumont. [address], [place], [place], [address] , [place]. [phone] Referring Provider: Jim Barbosa [address], [place], [place], [address]. tel:[phone] OFFICE/OUTPA TIENT VISIT, [facility], [place], [facility], [address], [place], [place], [address], [place] tel:[phone] [facility] anxiety1 (chief complaint)back pain1 (chief complaint) Generalized anxiety disorderChronic pain syndrome 9 Fish Dumont. [address], [place], [place], [address] , [place]. [phone] Referring Provider: Jim Barbosa [address], [place], [place], [address]. tel:[phone] OFFICE/OUTPA TIENT VISIT, [facility], [place], [facility], [address], [place], [place], [address], [place] tel:[phone] [facility] chronic pain1 (chief complaint)anxi ety1 (chief complaint) Generalized anxiety disorderChronic pain syndrome 9 Fish Dumont. [address], [place], [place], [address] , [place]. [phone] Referring Provider: Jim Barbosa [address], [place], [place], [address]. tel:[phone] OFFICE/OUTPA TIENT VISIT, [facility], [place], [facility], [address], [place], [place], [address], [place] tel:[phone] [facility] anxiety1 (chief complaint)back pain1 (chief complaint) Chronic pain syndromeGeneral ized anxiety disorder 9 Fish Dumont. [address], [place], [place], [address] , [place]. [phone] Referring Provider: Jim Barbosa [address], [place], [place], [address]. tel:[phone] OFFICE/OUTPA TIENT VISIT, EST [facility], [address], [place], [place], [address], [place] tel:[phone] [facility] anxiety1 (chief complaint)back pain1 (chief complaint) Chronic pain syndromeGeneral ized anxiety disorder 9 Fish Dumont. [address], [place], [place], [address] , [place]. tel:[phone] OFFICE/OUTPA TIENT VISIT, EST [facility], [address], [place], [place], [address], [place] tel:[phone] [facility] chronic pain (chief complaint)anxi ety1 (chief complaint) Chronic pain syndromeGeneral ized anxiety disorder 8 Fish Dumont. [address], [place], [place], [address] , [place]. tel:[phone] Referring Provider: Tim Whitten [address], [place], [place], [address]. tel:[phone] PREV VISIT, EST, AGE 40-64 [facility], [address], [place], [place], [address], [place] tel:[phone] [facility] PHysical (chief complaint) Encntr for general adult medical exam w/o abnormal findings 8 Fish Dumont. [address], [place], [place], [address] , [place]. tel:[phone] Referring Provider: Tim Whitten [address], [place], [place], [address]. tel:[phone] OFFICE/OUTPA TIENT VISIT, EST [facility], [address], [place], [place], [address], [place] tel:[phone] [facility] chronic pain (chief complaint)anxi ety1 (chief complaint)occu lt blood1 (chief complaint) Body mass index (BMI) 33.0-33.9, adultChronic pain syndromeGeneral ized anxiety disorderOccult blood in feces 8 Fish Dumont. [address], [facility], [place], [place], [address] , [place]. [phone] Referring Provider: Tim Whitten [address] [facility] [address], [place], [place], [address]. tel:[phone] OFFICE/OUTPA TIENT VISIT, [facility], [place], [facility], [address] [place], [address], [place] tel:[phone] [facility] chronic pain1 (chief complaint)anxi ety1 (chief complaint) Body mass index (BMI) 32.0-32.9, adultChronic pain syndromeGeneral ized anxiety disorder 8 Fish Dumont. [address], [place], [place], [address] , [place]. [phone] Referring Provider: Jim Barbosa [facility], [place], [place], [address]. 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 [address], [facility], [place], [place], [address] , [place]. [phone] Referring Provider: Jim Barbosa [facility] A, [place], [place], [address]. tel:[phone] OFFICE/OUTPA TIENT VISIT, [facility], [place], [facility], [address], [place], [place], [address], [place] tel:[phone] [facility] back pain1 (chief complaint)anxi ety1 (chief complaint)oste openia1 (chief complaint)CAD1 (chief complaint) Coronary artery disease of circle coronary artery without angina pectorisHyperli pidemiaChronic pain syndromeEncount er for screening for malignant neoplasm of colonOth disrd of bone density and structure, other site 8 Fish Dumont. [address], [place], [place], [address] , [place]. [phone] Referring Provider: Jim Barbosa [address], [place], [place], [address]. tel:[phone] OFFICE/OUTPA TIENT VISIT, [facility], [place], [facility], [address], [place], [place], [address], [place] [phone] [facility] chronic pain (chief complaint)anxi ety1 (chief complaint) Body mass index (BMI) 32.0-32.9, adultChronic pain syndromeGeneral ized anxiety disorder 8 Fish Mclean [address], [place], [place], [address] , [place]. [phone] Referring Provider: Jim Barbosa [address], [place], [place], [address]. tel:[phone] OFFICE/OUTPA TIENT VISIT, [facility], [place], [facility], [address], [place], [place], [address], [place] [phone] [facility] chronic pain (chief complaint)anxi ety1 (chief complaint) Chronic pain syndromeGeneral ized anxiety disorder 8 Fish Mclean [address], [place], [place], [address] , [place]. [phone] Referring Provider: Jim Barbosa [address], [place], [place], [address]. tel:[phone] OFFICE/OUTPA TIENT VISIT, [facility], [place], [facility], [address], [place], [place], [address], [place] tel:[phone] [facility] chronic pain1 (chief complaint)anxi ety1 (chief complaint)toba cco1 (chief complaint) Body mass index (BMI) 31.0-31.9, adultGeneralize d anxiety disorderChronic pain syndromeEmphyse maTobacco use 8 Fish Mclean [address], [place], [place], [address] , [place]. tel:[phone] Referring Provider: Jim Barbosa [facility], [place], [place], [address]. tel:[phone] OFFICE/OUTPA TIENT VISIT, [facility], [place], [facility], [address] [place], [place], [address], [place] tel:[phone] [facility] chronic pain (chief complaint)anxi ety1 (chief complaint) Chronic pain syndromeGeneral ized anxiety disorder 8 Fish Mclean [address], [place], [place], [address] , [place]. tel:[phone] Referring Provider: Jim Barbosa [address] [facility] [place], [place], [address]. tel:[phone] OFFICE/OUTPA TIENT VISIT, [facility], [place], [facility], [address], [place], [place], [address], [place] tel:[phone] [facility] back pain1 (chief complaint)anxi ety1 (chief complaint)emph sema1 (chief complaint)toba cco1 (chief complaint) Chronic pain syndromeEmphyse maGeneralized anxiety disorderTobacco use 8 Fish Alicea [facility] [place], [place], [address] , [place]. tel:[phone] Referring Provider: Jim Barbosa [address], [place], [place], [address]. tel:[phone] OFFICE/OUTPA TIENT VISIT, [facility] [place], [facility], [address] [place], [place], [address], [place] tel:[phone] [facility] anxiety1 (chief complaint)back pain1 (chief complaint)bres at CA1 (chief complaint) Chronic pain syndromeGeneral ized anxiety disorderMaligna nt neoplasm of axillary tail of left female breast 8 Whitten Tim. [address], [place], [place], [address] , [place]. tel:[phone] Referring Provider: Jim Barbosa [address], [place], [place], [address]. tel:[phone] OFFICE/OUTPA TIENT VISIT, EST [facility], [address], [place], [place], [address], [place] tel:[phone] [facility] anxiety1 (chief complaint)back pain1 (chief complaint) Chronic pain syndromeGeneral ized anxiety disorder 7 Fish Dumont. [address], [place], [place], [address] , [place]. tel:[phone] Referring Provider: Jim Barbosa [address], [place], [place], [address]. tel:[phone] OFFICE/OUTPA TIENT VISIT, EST [facility], [address], [place], [place], [address], [place] tel:[phone] [facility] anxiety1 (chief complaint)chrn oic pain1 (chief complaint)oste openia1 (chief complaint)HLP (chief complaint) Generalized anxiety disorderChronic pain syndromeOth disrd of bone density and structure, multiple sitesHyperlipid emia 7 Fish Dumont. [address], [place], [place], [address] , [place]. [phone] Referring Provider: Jim Barbosa [address], [place], [place], [address]. tel:[phone] PREV VISIT, EST, AGE 40-64 [facility], [address], [place], [place], [address], [place] tel:[phone] [facility] PHysical (chief complaint) Encntr for general adult medical exam w/o abnormal findings 7 Fish Dumont. [address], [place], [place], [address] , [place]. [phone] Referring Provider: Jim Barbosa [address], [place], [place], [address]. tel:[phone] OFFICE/OUTPA TIENT VISIT, [facility] [place], [facility], [address], [place], [place], [address], [place] tel:[phone] [facility] chronic pain (chief complaint)anxi ety1 (chief complaint)HTN (chief complaint) Chronic pain syndromeGeneral ized anxiety disorderEssenti al (primary) hypertensionMal ignant neoplasm of axillary tail of left female breast 7 Fish Dumont. [address], [place], [place], [address] , [place]. tel:[phone] Referring Provider: Tim Whitten [address] [facility] [address], [place], [place], [address]. tel:[phone] OFFICE/OUTPA TIENT VISIT, [facility], [place], operated [facility], [address] [facility] [place], [address], [place] tel:[phone] [facility] osteopneia1 (chief complaint)back pain1 (chief complaint)anxi ety1 (chief complaint)PAD1 (chief complaint) Oth disrd of bone density and structure, multiple sitesChronic pain syndromeGeneral ized anxiety disorderPeriphe ral vascular disease, unspecified 7 Fish Mclean [address], [place], [place], [address] , [place]. tel:[phone] Referring Provider: Tim Whitten [address] [facility] [address], [place], [place], [address]. tel:[phone] OFFICE/OUTPA TIENT VISIT, [facility], [place], operated [facility], [address] [place], [place], [address], [place] [phone] [facility] osteopenia1 (chief complaint)anxi ety1 (chief complaint)back pain1 (chief complaint)lupu s1 (chief complaint) Chronic pain syndromeGeneral ized anxiety disorderOth disrd of bone density and structure, multiple sitesDiscoid lupus erythematosus 7 Fish Mclean [address], [place], [place], [address] , [place]. tel:[phone] Referring Provider: Jim Barbosa [address], [place], [place], [address]. tel:[phone] OFFICE/OUTPA TIENT VISIT, [facility], [place], operated [facility], [address], [place], [place], [address], [place] tel:[phone] [facility] PreDM (chief complaint)anxi ety1 (chief complaint)marly pain1 (chief complaint) Chronic pain syndromeGeneral ized anxiety disorderMetabol ic syndromeBody mass index (BMI) 31.0-31.9, adult 7 Fish Dumont. [address], [place], [place], [address] , [place]. tel:[phone] Referring Provider: Jim Barbosa [address], [place], [place], [address]. tel:[phone] OFFICE/OUTPA TIENT VISIT, [facility], [place], operated [facility], [address], [place], [place], [address], [place] tel:[phone] [facility] back pain1 (chief complaint)anxi ety1 (chief complaint) Chronic pain syndromeGeneral ized anxiety disorder Fish Dumont. [address], [place], [place], [address] , [place]. tel:[phone] Referring Provider: Jim Barbosa [address], [place], [place], [address]. tel:[phone] OFFICE/OUTPA TIENT VISIT, [facility], [place], operated [facility], [address], [place], [place], [address], [place] tel:[phone] [facility] COPD1 (chief complaint)hep c (chief complaint)back pain1 (chief complaint)anxi ety1 (chief complaint)PAD (chief complaint) COPDGeneralized anxiety disorderChronic pain syndromePeriphe ral vascular disease, unspecified 7 Fish Dumont. [address], [place], [place], [address] , [place]. tel:[phone] Referring Provider: Jim Barbosa [address], [place], [place], [address]. tel:[phone] OFFICE/OUTPA TIENT VISIT, [facility], [place], operated [facility], [address], [place], [place], [address], [place] tel:[phone] [facility] back pain1 (chief complaint)anxi ety1 (chief complaint)PreD M (chief complaint) Essential (primary) hypertensionGen eralized anxiety disorderMetabol ic syndromeChronic pain syndrome Jun- 7 Fish Dumont. [address], [place], [place], [address] , [place]. tel:[phone] Referring Provider: Jim Barbosa [facility] [address], [place], [place], [address]. tel:[phone] OFFICE/OUTPA TIENT VISIT, [facility], [place], operated [facility], [address] [facility] [address], [place], [place], [address], [place] tel:[phone] [facility] back pain1 (chief complaint)anxi ety1 (chief complaint)oste openia1 (chief complaint)toba cco1 (chief complaint) Chronic pain syndromeGeneral ized anxiety disorderOth disrd of bone density and structure, multiple sitesTobacco use 7 Fish Dumont. [address], [place], [place], [address] , [place]. tel:[phone] Referring Provider: Jim Barbosa [facility], [place], [place], [address]. tel:[phone] OFFICE/OUTPA TIENT VISIT, [facility], [place], operated [facility], [address], [place], [place], [address], [place] tel:[phone] [facility] chronic pain1 (chief complaint)anxi ety1 (chief complaint)gluc ose (chief complaint)PAd (chief complaint) Generalized anxiety disorderBack painMetabolic syndromeSpasm of artery 7 Fish Dumont. [address], [place], [place], [address] , [place]. tel:[phone] Referring Provider: Jim Barb[address], [place], [place], [address]. tel:[phone] OFFICE/OUTPA TIENT VISIT, [facility], [place], operated [facility], [address], [place], [place], [address], [place] tel:[phone] [facility] back pain1 (chief complaint)anxi ety1 (chief complaint)DM (chief complaint)CAD (chief complaint) Back painGeneralized anxiety disorderMetabol ic syndromeCoronar y artery disease of circle coronary artery without angina pectoris 7 Fsih Dumont. [address], [place], [place], [address] , [place]. tel:[phone] Referring Provider: Jim [address], [place], [place], [address]. tel:[phone] OFFICE/OUTPA TIENT VISIT, [facility], [place], operated [facility], [address], [place], [place], [address], [place] tel:[phone] [facility] anxiety1 (chief complaint)back pain1 (chief complaint) Generalized anxiety disorderChronic pain syndrome 6 Fish Dumont. [address], [place], [place], [address] , [place]. tel:[phone] Referring Provider: Jim Barb[address], [place], [place], [address]. tel:[phone] OFFICE/OUTPA TIENT VISIT, [facility], [place], operated [facility], [address], [place], [place], [address], [place] [phone] [facility] anxiety1 (chief complaint)back pain1 (chief complaint)insu tavares (chief complaint) Generalized anxiety disorderLow back painMetabolic disorder, unspecified 6 Fish Dumont. [address], [place], [place], [address] , [place]. tel:[phone] Referring Provider: Jim Barb[address], [place], [place], [address]. tel:[phone] PREV VISIT, EST, AGE 40-64 [facility], [address], [place], [place], [address], [place] tel:[phone] [facility] Physical (chief complaint) Encntr for general adult medical exam w/o abnormal findings 6 Fish Dumont. [address], [place], [place], [address] , [place]. tel:[phone] Referring Provider: Tim Whitten, [address] [facility] [address], [place], [place], [address]. tel:[phone] OFFICE/OUTPA TIENT VISIT, [facility], [place], operated [facility], [address], [place], [place], [address], [place] tel:[phone] [facility] back pain1 (chief complaint)anxi ety1 (chief complaint)oste openia1 (chief complaint)CAD (chief complaint) Low back painOth disrd of bone density and structure, other siteGeneralized anxiety disorderCoronar y artery disease of circle coronary artery without angina pectoris 6 Fish Dumont. [address], [place], [place], [address] , [place]. tel:[phone] Referring Provider: Tim Whitten [address] [facility] [place], [place], [address]. tel:[phone] OFFICE/OUTPA TIENT VISIT, [facility], [place], operated [facility], [address], [place], [place], [address], [place] tel:[phone] [facility] back pain (chief complaint)anxi ety1 (chief complaint)preD M (chief complaint) Back painGeneralized anxiety disorderMetabol ic syndrome 6 Fish Dumont. [address], [place], [place], [address] , [place]. tel:[phone] Referring Provider: Tim Whitten [address], [place], [place], [address]. tel:[phone] OFFICE/OUTPA TIENT VISIT, [facility], [place], [facility], [address], [place], [place], [address], [place] tel:[phone] [facility] osteopenia1 (chief complaint)back apin1 (chief complaint)anxi ety1 (chief complaint) Generalized anxiety disorderLow back painOth disrd of bone density and structure, other siteEncounter for screening for malignant neoplasm of colon Royer-3 0-201 6 Fish Dumont. [address], [place], [place], [address] , [place]. tel:[phone] Referring Provider: Tim Whitten [address], [place], [place], [address]. tel:[phone] OFFICE/OUTPA TIENT VISIT, [facility], [place], [facility], [address], [place], [place], [address], [place] tel:[phone] [facility] back pain1 (chief complaint)anxi ety1 (chief complaint) Back painGeneralized anxiety disorder Royer-0 2-201 6 Fish Dumont. [address], [place], [place], [address] , [place]. tel:[phone] Referring Provider: Tim Whitten [address], [place], [place], [address]. tel:[phone] OFFICE/OUTPA TIENT VISIT, [facility], [place], operated [facility], [address], [place], [place], [address], [place] tel:[phone] [facility] back pain1 (chief complaint)anxi ety1 (chief complaint)Pre DM (chief complaint)oste openia (chief complaint) Metabolic syndromeLow back painGeneralized anxiety disorderOth disrd of bone density and structure, other site August-0 3-201 6 Fish Dumont. [address], [place], [place], [address] , [place]. [phone] Referring Provider: Jim Barb[address], [place], [place], [address]. tel:[phone] OFFICE/OUTPA TIENT VISIT, [facility], [place], operated [facility], [address], [place], [place], [address], [place] tel:[phone] [facility] anxiety1 (chief complaint)back pain1 (chief complaint)oste openia (chief complaint) Oth disrd of bone density and structure, other siteLow back painGeneralized anxiety disorder Apr-0 - 6 Fish Dumont. [address], [place], [place], [address] , [place]. [phone] Referring Provider: Jim Barbosa [address], [place], [place], [address]. tel:[phone] OFFICE/OUTPA TIENT VISIT, EST [facility], [address], [place], [place], [address], [place] [phone] [facility] Anxiety1 (chief complaint)back pain (chief complaint)HLP (chief complaint)preD M (chief complaint) Low back painGeneralized anxiety disorderOther abnormal glucoseVitamin D deficiency, unspecified Mar-0 - 6 Fish Mclean [address], [place], [place], [address] , [place]. tel:[phone] Referring Provider: Jim Barb[address], [place], [place], [address]. tel:[phone] OFFICE/OUTPA TIENT VISIT, EST [facility], [address], [place], [place], [address], [place] tel:[phone] [facility] anxiety1 (chief complaint)back pain1 (chief complaint)insu tavares resistance (chief complaint) Generalized anxiety disorderBack painMetabolic disorder, unspecified 6 Fish Mclean [address], [place], [place], [address] , [place]. tel:[phone] Referring Provider: Jim Barb[address], [place], [place], [address]. tel:[phone] PREV VISIT, EST, AGE 40-64 [facility], [address], [place], [place], [address], [place] tel:[phone] [facility] PHysical (chief complaint) Routine medical exam Sep-0 2- 5 Fish Dumont. [address], [place], [place], [address] , [place]. tel:[phone] Referring Provider: Tim Whitten, [address], [place], [place], [address]. tel:[phone] OFFICE/OUTPA TIENT VISIT, [facility], [place], [facility], [address], [place], [place], [address], [place] tel:[phone] [facility] Anxiety (chief complaint)back pain (chief complaint) LumbagoGenerali zed Anxiety DisorderDietary surveillance and counseling 5 Fish Dumont. [address], [place], [place], [address] , [place]. tel:[phone] Referring Provider: Jim Barb[address], [place], [place], [address]. tel:[phone] OFFICE/OUTPA TIENT VISIT, [facility], [place], [facility], [address], [place], [place], [address], [place] tel:[phone] [facility] back pain (chief complaint)preD M (chief complaint)live r (chief complaint) Dietary surveillance and counselingUnspe cified disorder of liverLumbagoMet abolic syndromeNeoplas m of unspecified nature of breast 5 Fish Dumont. [address], [place], [place], [address] , [place]. [phone] Referring Provider: Jim Barb[address], [place], [place], [address]. tel:[phone] OFFICE/OUTPA TIENT VISIT, [facility], [place], [facility], [address], [place], [place], [address], [place] tel:[phone] [facility] PreDM (chief complaint)LFT (chief complaint)back pain (chief complaint) Metabolic syndromeLumbago Unspecified disorder of liver 5 Fish Dumont. [address], [place], [place], [address] , [place]. tel:[phone] Referring Provider: Tim Whitten [address], [place], [place], [address]. tel:[phone] OFFICE/OUTPA TIENT VISIT, EST [facility], [address], [place], [place], [address], [place] tel:[phone] [facility] hyperglycemia (chief complaint)LFT (chief complaint)HLP (chief complaint)back pain (chief complaint) OTHER ABNORMAL GLUCOSEUnspecif ied disorder of liverOther and unspecified hyperlipidemiaU nspecified vitamin d deficiency August-0 5 Fish Dumont. [address], [place], [place], [address] , [place]. tel:[phone] Referring Provider: Jim Barbosa [address], [place], [place], [address]. tel:[phone] OFFICE/OUTPA TIENT VISIT, EST [facility], [address], [place], [place], [address], [place] tel:[phone] [facility] back pain (chief complaint)milad st neoplasm (chief complaint) Dietary surveillance and counselingNeopl asm of unspecified nature of breastLumbago Jul-0 5 Fish Dumont. [address], [place], [place], [address] , [place]. tel:[phone] Referring Provider: Jim Barb[address], [place], [place], [address]. tel:[phone] PREV VISIT, EST, AGE 40-64 [facility], [address], [place], [place], [address], [place] tel:[phone] [facility] Physical (chief complaint) Dietary surveillance and counselingRouti ne Medical ExamLumbagoNeop lasm of unspecified nature of breastCAD, UnspecifiedRout ine Medical Exam Mar-0 3-201 5 Fish Dumont. [address], [place], [place], [address] , [place]. tel:[phone] Referring Provider: Jim Barb[address], [place], [place], [address]. tel:[phone] OFFICE/OUTPA TIENT VISIT, EST [facility], [address], [place], [place], [address], [place] tel:[phone] [facility] breast neoplasm (chief complaint)back pain (chief complaint) Dietary surveillance and counselingNeopl asm of unspecified nature of breastLumbagoOp ioid type dependence, unspecified use 5 Fish Dumont. [address], [place], [place], [address] , [place]. [phone] Referring Provider: Tim Whitten, [address], [place], [place], [address]. tel:[phone] OFFICE/OUTPA TIENT VISIT, [facility], [place], [facility], [address], [place], [place], [address], [place] tel:[phone] [facility] HTN (chief complaint)back pain (chief complaint)milad st nodule (chief complaint) Dietary surveillance and counselingHyper tension, UnspecifiedLump or mass in breastLumbago 5 Fish Dumont. [address], [place], [place], [address] , [place]. [phone] Referring Provider: Jim [address], [place], [place], [address]. tel:[phone] OFFICE/OUTPA TIENT VISIT, [facility], [place], [facility], [address], [place], [place], [address], [place] [phone] [facility] HTN (chief complaint)back pain (chief complaint) Dietary surveillance and counselingHyper tension, UnspecifiedLumb ago 4 Fish Mclean [address], [place], [place], [address] , [place]. [phone] Referring Provider: Jim [address], [place], [place], [address]. tel:[phone] OFFICE/OUTPA TIENT VISIT, [facility], [place], [facility], [address], [place], [place], [address], [place] tel:[phone] [facility] back pain (chief complaint)HTN (chief complaint)abno rmal mammo (chief complaint) Dietary surveillance and counselingUnspe cified abnormal mammogramHypert ension, UnspecifiedLumb ago 4 Fish Dumont. [address], [place], [place], [address] , [place]. tel:[phone] Referring Provider: Jim Barb[address], [place], [place], [address]. tel:[phone] OFFICE/OUTPA TIENT VISIT, [facility], [place], [facility], [address], [place], [place], [address], [place] [phone] [facility] HLP (chief complaint)back pain (chief complaint)HTN (chief complaint) Dietary surveillance and counselingHyper glycemiaHyperte nsion, UnspecifiedLumb agoOther and unspecified hyperlipidemia 4 Fish Mclean [address], [place], [place], [address] , [place]. [phone] Referring Provider: Jim Barb[address], [place], [place], [address]. tel:[phone] OFFICE/OUTPA TIENT VISIT, [facility], [place], [facility], [address], [place], [place], [address], [place] tel:[phone] [facility] back pain (chief complaint)HLP (chief complaint)HTN (chief complaint) Dietary surveillance and counselingHyper tension, UnspecifiedOthe r and unspecified hyperlipidemiaL umbago 4 Fish Mclean [address], [place], [place], [address] , [place]. [phone] Referring Provider: Jim Barb[address], [place], [place], [address]. tel:[phone] OFFICE/OUTPA TIENT VISIT, [facility], [place], [facility], [address], [place], [place], [address], [place] tel:[phone] [facility] HLP (chief complaint)HTN (chief complaint)back pain (chief complaint) Dietary surveillance and counselingOther and unspecified hyperlipidemiaH ypertension, UnspecifiedLumb ago 4 Fish Dumont. [address], [place], [place], [address] , [place]. [phone] Referring Provider: Jim Barb[address], [place], [place], [address]. tel:[phone] OFFICE/OUTPA TIENT VISIT, [facility], [place], [facility], [address], [place], [place], [address], [place] [phone] [facility] HLP (chief complaint)back pain (chief complaint) Dietary surveillance and counselingOther and unspecified hyperlipidemiaL umbago 4 Fish Dumont. [address], [place], [place], [address] , [place]. tel:[phone] Referring Provider: Jim Barb[address], [place], [place], [address]. tel:[phone] OFFICE/OUTPA TIENT VISIT, [facility], [place], [facility], [address], [place], [place], [address], [place] [phone] [facility] abnormal mammogram (chief complaint)back pain (chief complaint)CAD (chief complaint) Dietary surveillance and counselingUnspe cified abnormal mammogramLumbag oAnal and rectal polypAcute NSTEMI 4 Fish Mclean [address], [place], [place], [address] , [place]. tel:[phone] Referring Provider: Jim [address]Br[address], [place], [place], [address]. tel:[phone] OFFICE/OUTPA TIENT VISIT, [facility], [place], [facility], [address], [place], [place], [address], [place] tel:[phone] [facility] CAD (chief complaint)back pain (chief complaint)colo n polyp (chief complaint) Dietary surveillance and counselingAcute NSTEMIAnal and rectal polypLumbago 4 Fish Mclean [address], [place], [place], [address] , [place]. tel:[phone] Referring Provider: Jim Barb[address], [place], [place], [address]. tel:[phone] OFFICE/OUTPA TIENT VISIT, [facility], [place], [facility], [address], [place], [place], [address], [place] tel:[phone] [facility] PAD (chief complaint)back pain (chief complaint)Mamm ogram (chief complaint) Dietary surveillance and counselingOther and unspecified hyperlipidemiaA cute NSTEMIUnspecifi ed abnormal mammogramLumbag o 4 Fish Dumont. [address], [place], [place], [address] , [place]. tel:[phone] Referring Provider: Jim [address], [place], [place], [address]. tel:[phone] OFFICE/OUTPA TIENT VISIT, [facility], [place], [facility], [address], [place], [place], [address], [place] tel:[phone] [facility] CAD (chief complaint) Dietary surveillance and counselingAcute NSTEMIPeriphera l Vascular DiseaseOther and unspecified hyperlipidemia Jun- 4 Fish Dumont. [address], [place], [place], [address] , [place]. tel:[phone] Referring Provider: Jim [address], [place], [place], [address]. tel:[phone] OFFICE/OUTPA TIENT VISIT, [facility], [place], [facility], [address], [place], [place], [address], [place] tel:[phone] [facility] HLP (chief complaint)guillermo min D (chief complaint)back pain (chief complaint) Dietary surveillance and counselingOther and unspecified hyperlipidemiaH yperglycemiaUns pecified vitamin d deficiencyLumba go Jun- 4 Fish Dumont. [address], [place], [place], [address] , [place]. tel:[phone] Referring Provider: Jim Barb[address], [place], [place], [address]. tel:[phone] PREV VISIT, NEW, AGE 40-64 [facility], [address], [place], [place], [address], tel:[phone] [facility] Medicine Physical (chief complaint) Dietary surveillance and counselingRouti ne Medical ExamLumbagoGene ralized anxiety disorderRoutine Medical Exam 0-201 4 Fish Dumont. [address], [place], [place], [address] , [place]. tel:[phone] Family History Family Member Type Diagnosis Age At Onset Father Problem (finding) Alcoholism Sister Problem (finding) cancer, brain Brother Problem (finding) Diabetes mellitus Mother Problem (finding) Alive and well Payers Payer name Insurance type Covered democrat ID Authoriza tibhavik(s) [facility] [id number] Social History Type Description Quantity Date Captured Comments Alcohol Use Details Caffeine Use Details Unknown Tobacco Use Status Ex-cigarette smoker 025 Smoking Status Former smoker Sex Female Vital Signs Date / Time: Height Weight BMI Pulse Rate Blood Pressure Temperature Respiratory Rate Body Surface Area Head Circumference BMI percentile Pulse Ox Inhaled Ox 10:47 AM 63.00 in 189.40 lbs 33.5 5 kg/m eter (2) 51 /min 130/60 mm[Hg] 97.6 F 16 /min Chief Complaint And Reason For Visit From encounter dated '09/13/2024 10:40'. physical (chief complaint). Description: Pt needs annual physical Pt has chronic anxiety and depression Pt takes cymbalta and xanax PRn and doing ok Pt denies any suicidal or homicidal thought Pt denies any crying spells. Pt has osteoporosis. Pt is on prolia and calcium and D. 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 pt needs coreg refilled. Pt has chronic pain. Pt denies any new complaints pt has high glucose Pt drank a lot of soda Plan Of Treatment Date Type Action Status Goal Depression screening. Due on due Goal Pap/HPV testing. Due on due Goal FOBT. Due on due Goal Sigmoidoscopy. Due on due Goal Cognitive assessment. Due on due Goal Influenza vaccine. Due on due Goal Td vaccine. Due on due Goal Tdap. Due on due Goal Lipid panel. Due on due Goal Pneumococcal vaccine. Due on due Goal Zoster vaccine. Due on due Goal Influenza vaccine. Due on due Goal Sigmoidoscopy. Due on due Goal FOBT. Due on due Goal Pap/HPV testing. Due on due Goal Depression screening. Due on due Goal Td vaccine. Due on due Goal Tdap. Due on due Goal Lipid panel. Due on due Goal Zoster vaccine. Due on due Goal Zoster vaccine. Due on due Goal Lipid panel. Due on due Goal Tdap. Due on due Goal Td vaccine. Due on due Goal Influenza vaccine. Due on due Goal Sigmoidoscopy. Due on due Goal FOBT. Due on due Goal Pap/HPV testing. Due on due Goal Depression screening. Due on due Goal Depression screening. Due on due Goal Pap/HPV testing. Due on due Goal FOBT. Due on due Goal Sigmoidoscopy. Due on due Goal Zoster vaccine. Due on due Goal Lipid panel. Due on 025 due Goal Tdap. Due on due Goal Td vaccine. Due on due Goal Influenza vaccine. Due on due Goal Tdap. Due on due Goal Lipid panel. Due on 024 due Goal Zoster vaccine. Due on due Goal Sigmoidoscopy. Due on due Goal FOBT. Due on due Goal Pap/HPV testing. Due on due Goal Depression screening. Due on due Goal Td vaccine. Due on 24 due Goal Influenza vaccine. Due on due Goal Depression screening. Due on due Goal Pap/HPV testing. Due on due Goal FOBT. Due on due Goal Sigmoidoscopy. Due on due Goal Zoster vaccine. Due on due Goal Lipid panel. Due on due Goal Tdap. Due on due Goal Td vaccine. Due on due Goal Influenza vaccine. Due on due Goal Tdap. Due on due Goal Lipid panel. Due on due Goal Zoster vaccine. Due on due Goal Sigmoidoscopy. Due on due Goal FOBT. Due on due Goal Pap/HPV testing. Due on due Goal Depression screening. Due on due Goal Td vaccine. Due on due Goal Influenza vaccine. Due on due Goal Tdap. Due on due Goal Lipid panel. Due on due Goal Zoster vaccine. Due on due Goal Sigmoidoscopy. Due on due Goal FOBT. Due on due Goal Pap/HPV testing. Due on due Goal Depression screening. Due on due Goal Td vaccine. Due on due Goal Influenza vaccine. Due on due Goal Tdap. Due on due Goal Lipid panel. Due on due Goal Zoster vaccine. Due on due Goal Sigmoidoscopy. Due on due Goal FOBT. Due on due Goal Pap/HPV testing. Due on due Goal Depression screening. Due on due Goal Td vaccine. Due on due Goal Influenza vaccine. Due on due Goal Influenza vaccine. Due on due Goal Td vaccine. Due on due Goal Tdap. Due on due Goal Lipid panel. Due on due Goal Zoster vaccine. Due on due Goal Sigmoidoscopy. Due on due Goal FOBT. Due on due Goal Pap/HPV testing. Due on due Goal Depression screening. Due on due Goal Depression screening. Due on due Goal Pap/HPV testing. Due on due Goal FOBT. Due on due Goal Sigmoidoscopy. Due on due Goal Influenza vaccine. Due on due Goal Td vaccine. Due on due Goal Tdap. Due on due Goal Lipid panel. Due on due Goal Zoster vaccine. Due on due Goal Zoster vaccine. Due on due Goal Lipid panel. Due on due Goal Tdap. Due on due Goal Td vaccine. Due on due Goal Depression screening. Due on due Goal Pap/HPV testing. Due on due Goal FOBT. Due on due Goal Sigmoidoscopy. Due on due Goal Influenza vaccine. Due on Ma due Goal Influenza vaccine. Due on Ap due Goal Sigmoidoscopy. Due on due Goal Zoster vaccine. Due on due Goal Lipid panel. Due on due Goal Tdap. Due on due Goal Td vaccine. Due on due Goal Depression screening. Due on due Goal Pap/HPV testing. Due on due Goal FOBT. Due on due Goal FOBT. Due on due Goal Pap/HPV testing. Due on due Goal Depression screening. Due on due Goal Td vaccine. Due on due Goal Influenza vaccine. Due on Ok due Goal Sigmoidoscopy. Due on due Goal Zoster vaccine. Due on due Goal Lipid panel. Due on due Goal Tdap. Due on due Goal Tdap. Due on due Goal Lipid panel. Due on 024 due Goal Zoster vaccine. Due on due Goal FOBT. Due on due Goal Pap/HPV testing. Due on due Goal Depression screening. Due on due Goal Td vaccine. Due on due Goal Influenza vaccine. Due on due Goal Sigmoidoscopy. Due on due Goal Depression screening. Due on due Goal Pap/HPV testing. Due on due Goal FOBT. Due on due Goal Zoster vaccine. Due on due Goal Lipid panel. Due on due Goal Tdap. Due on due Goal Td vaccine. Due on due Goal Influenza vaccine. Due on due Goal Sigmoidoscopy. Due on due Goal Tdap. Due on due Goal Lipid panel. Due on 023 due Goal Zoster vaccine. Due on due Goal FOBT. Due on due Goal Pap/HPV testing. Due on due Goal Depression screening. Due on due Goal Td vaccine. Due on due Goal Influenza vaccine. Due on due Goal Sigmoidoscopy. Due on due Goal Depression screening. Due on due Goal Pap/HPV testing. Due on due Goal FOBT. Due on due Goal Zoster vaccine. Due on due Goal Lipid panel. Due on 023 due Goal Tdap. Due on due Goal Td vaccine. Due on due Goal Influenza vaccine. Due on due Goal Sigmoidoscopy. Due on due Goal Sigmoidoscopy. Due on due Goal Td vaccine. Due on due Goal Influenza vaccine. Due on due Goal Depression screening. Due on due Goal Pap/HPV testing. Due on due Goal FOBT. Due on due Goal Zoster vaccine. Due on due Goal Lipid panel. Due on due Goal Tdap. Due on due Goal Tdap. Due on due Goal Lipid panel. Due on 023 due Goal Zoster vaccine. Due on due Goal Sigmoidoscopy. Due on due Goal Td vaccine. Due on due Goal Influenza vaccine. Due on due Goal Depression screening. Due on due Goal Pap/HPV testing. Due on due Goal FOBT. Due on due Goal Td vaccine. Due on due Goal Sigmoidoscopy. Due on due Goal Zoster vaccine. Due on due Goal Lipid panel. Due on due Goal Tdap. Due on due Goal Influenza vaccine. Due on due Goal Depression screening. Due on due Goal Pap/HPV testing. Due on due Goal FOBT. Due on due Goal Tdap. Due on due Goal Lipid panel. Due on due Goal Zoster vaccine. Due on due Goal Sigmoidoscopy. Due on due Goal Td vaccine. Due on due Goal Influenza vaccine. Due on due Goal Depression screening. Due on due Goal Pap/HPV testing. Due on due Goal FOBT. Due on due Goal FOBT. Due on due Goal Pap/HPV testing. Due on due Goal Depression screening. Due on due Goal Influenza vaccine. Due on due Goal Tdap. Due on due Goal Lipid panel. Due on due Goal Zoster vaccine. Due on due Goal Sigmoidoscopy. Due on due Goal Td vaccine. Due on due Goal Zoster vaccine. Due on due Goal Lipid panel. Due on due Goal Tdap. Due on due Goal Influenza vaccine. Due on due Goal Depression screening. Due on due Goal Pap/HPV testing. Due on due Goal FOBT. Due on due Goal Sigmoidoscopy. Due on due Goal Td vaccine. Due on due Goal FOBT. Due on due Goal Pap/HPV testing. Due on due Goal Depression screening. Due on due Goal Influenza vaccine. Due on due Goal Tdap. Due on due Goal Lipid panel. Due on due Goal Zoster vaccine. Due on due Goal Td vaccine. Due on due Goal Sigmoidoscopy. Due on due Goal Sigmoidoscopy. Due on due Goal Td vaccine. Due on due Goal FOBT. Due on due Goal Pap/HPV testing. Due on due Goal Depression screening. Due on due Goal Influenza vaccine. Due on due Goal Tdap. Due on due Goal Lipid panel. Due on 023 due Goal Zoster vaccine. Due on due Goal Zoster vaccine. Due on due Goal Lipid panel. Due on 023 due Goal Tdap. Due on due Goal Influenza vaccine. Due on due Goal Sigmoidoscopy. Due on due Goal Td vaccine. Due on due Goal FOBT. Due on due Goal Pap/HPV testing. Due on due Goal Depression screening. Due on due Goal Depression screening. Due on due Goal Pap/HPV testing. Due on due Goal FOBT. Due on due Goal Zoster vaccine. Due on due Goal Lipid panel. Due on 022 due Goal Tdap. Due on due Goal Influenza vaccine. Due on due Goal Sigmoidoscopy. Due on due Goal Td vaccine. Due on due Goal Td vaccine. Due on due Goal Sigmoidoscopy. Due on due Goal Influenza vaccine. Due on due Goal Depression screening. Due on due Goal Pap/HPV testing. Due on due Goal FOBT. Due on due Goal Zoster vaccine. Due on due Goal Lipid panel. Due on due Goal Tdap. Due on due Goal FOBT. Due on due Goal Pap/HPV testing. Due on due Goal Depression screening. Due on due Goal Influenza vaccine. Due on due Goal Sigmoidoscopy. Due on due Goal Td vaccine. Due on due Goal Zoster vaccine. Due on due Goal Lipid panel. Due on due Goal Tdap. Due on due Goal Tdap. Due on due Goal Lipid panel. Due on due Goal Zoster vaccine. Due on due Goal FOBT. Due on due Goal Pap/HPV testing. Due on due Goal Depression screening. Due on due Goal Influenza vaccine. Due on due Goal Sigmoidoscopy. Due on due Goal Td vaccine. Due on due Goal Depression screening. Due on due Goal Pap/HPV testing. Due on due Goal FOBT. Due on due Goal Zoster vaccine. Due on due Goal Lipid panel. Due on due Goal Tdap. Due on due Goal Influenza vaccine. Due on due Goal Sigmoidoscopy. Due on due Goal Td vaccine. Due on due Goal Td vaccine. Due on due Goal Sigmoidoscopy. Due on due Goal Influenza vaccine. Due on due Goal Depression screening. Due on due Goal Pap/HPV testing. Due on due Goal FOBT. Due on due Goal Zoster vaccine. Due on due Goal Lipid panel. Due on due Goal Tdap. Due on due Goal Tdap. Due on due Goal Lipid panel. Due on due Goal Zoster vaccine. Due on due Goal Td vaccine. Due on due Goal Sigmoidoscopy. Due on due Goal Influenza vaccine. Due on due Goal Depression screening. Due on due Goal Pap/HPV testing. Due on due Goal FOBT. Due on due Goal FOBT. Due on due Goal Tdap. Due on due Goal Lipid panel. Due on due Goal Zoster vaccine. Due on due Goal Td vaccine. Due on due Goal Sigmoidoscopy. Due on due Goal Influenza vaccine. Due on due Goal Depression screening. Due on due Goal Pap/HPV testing. Due on due Goal Pap/HPV testing. Due on due Goal Depression screening. Due on due Goal Influenza vaccine. Due on due Goal Sigmoidoscopy. Due on due Goal FOBT. Due on due Goal Tdap. Due on due Goal Lipid panel. Due on due Goal Zoster vaccine. Due on due Goal Td vaccine. Due on due Goal Td vaccine. Due on due Goal Zoster vaccine. Due on due Goal Pap/HPV testing. Due on due Goal Depression screening. Due on due Goal Influenza vaccine. Due on due Goal Sigmoidoscopy. Due on due Goal FOBT. Due on due Goal Tdap. Due on due Goal Lipid panel. Due on due Goal Lipid panel. Due on due Goal Tdap. Due on due Goal FOBT. Due on due Goal Sigmoidoscopy. Due on due Goal Td vaccine. Due on due Goal Zoster vaccine. Due on due Goal Pap/HPV testing. Due on due Goal Depression screening. Due on due Goal Influenza vaccine. Due on due Goal Td vaccine. Due on due Goal Sigmoidoscopy. Due on due Goal FOBT. Due on due Goal Tdap. Due on due Goal Lipid panel. Due on due Goal Influenza vaccine. Due on due Goal Depression screening. Due on due Goal Pap/HPV testing. Due on due Goal Zoster vaccine. Due on due Goal Lipid panel. Due on due Goal Tdap. Due on due Goal FOBT. Due on due Goal Sigmoidoscopy. Due on due Goal Td vaccine. Due on due Goal Influenza vaccine. Due on due Goal Depression screening. Due on due Goal Pap/HPV testing. Due on due Goal Zoster vaccine. Due on due Goal Zoster vaccine. Due on due Goal Pap/HPV testing. Due on due Goal Depression screening. Due on due Goal Influenza vaccine. Due on Oc due Goal Lipid panel. Due on due Goal Tdap. Due on due Goal FOBT. Due on due Goal Sigmoidoscopy. Due on due Goal Td vaccine. Due on due Goal Zoster vaccine. Due on due Goal Sigmoidoscopy. Due on due Goal Td vaccine. Due on due Goal FOBT. Due on due Goal Tdap. Due on due Goal Lipid panel. Due on due Goal Influenza vaccine. Due on due Goal Depression screening. Due on due Goal Pap/HPV testing. Due on due Goal Pap/HPV testing. Due on due Goal Depression screening. Due on due Goal Influenza vaccine. Due on due Goal Lipid panel. Due on due Goal Zoster vaccine. Due on due Goal Sigmoidoscopy. Due on due Goal Td vaccine. Due on due Goal FOBT. Due on due Goal Tdap. Due on due Goal Sigmoidoscopy. Due on due Goal Zoster vaccine. Due on due Goal Lipid panel. Due on due Goal Influenza vaccine. Due on due Goal Depression screening. Due on due Goal Tdap. Due on due Goal FOBT. Due on due Goal Td vaccine. Due on due Goal Pap/HPV testing. Due on due Goal Pap/HPV testing. Due on due Goal Td vaccine. Due on due Goal Sigmoidoscopy. Due on due Goal Zoster vaccine. Due on due Goal Lipid panel. Due on due Goal Influenza vaccine. Due on due Goal Depression screening. Due on due Goal Tdap. Due on due Goal FOBT. Due on due Goal FOBT. Due on due Goal Tdap. Due on due Goal Depression screening. Due on due Goal Influenza vaccine. Due on Ok due Goal Lipid panel. Due on due Goal Zoster vaccine. Due on due Goal Sigmoidoscopy. Due on due Goal Td vaccine. Due on due Goal Pap/HPV testing. Due on due Goal FOBT. Due on due Goal Tdap. Due on due Goal Depression screening. Due on due Goal Influenza vaccine. Due on due Goal Lipid panel. Due on due Goal Zoster vaccine. Due on due Goal Sigmoidoscopy. Due on due Goal Td vaccine. Due on due Goal Pap/HPV testing. Due on due Goal FOBT. Due on due Goal Tdap. Due on due Goal Depression screening. Due on due Goal Influenza vaccine. Due on Ok due Goal Lipid panel. Due on due Goal Zoster vaccine. Due on due Goal Sigmoidoscopy. Due on due Goal Td vaccine. Due on due Goal Pap/HPV testing. Due on due Goal Lipid panel. Due on due Goal Zoster vaccine. Due on due Goal Sigmoidoscopy. Due on due Goal Td vaccine. Due on due Goal Pap/HPV testing. Due on due Goal FOBT. Due on due Goal Tdap. Due on due Goal Depression screening. Due on due Goal Influenza vaccine. Due on due Goal Pap/HPV testing. Due on due Goal Td vaccine. Due on due Goal Sigmoidoscopy. Due on due Goal Zoster vaccine. Due on due Goal Lipid panel. Due on 021 due Goal Influenza vaccine. Due on due Goal Depression screening. Due on due Goal Tdap. Due on due Goal FOBT. Due on due Goal FOBT. Due on due Goal Tdap. Due on due Goal Depression screening. Due on due Goal Influenza vaccine. Due on due Goal Lipid panel. Due on 020 due Goal Zoster vaccine. Due on due Goal Sigmoidoscopy. Due on due Goal Td vaccine. Due on due Goal Pap/HPV testing. Due on due Goal Pap/HPV testing. Due on due Goal Td vaccine. Due on due Goal Sigmoidoscopy. Due on due Goal Zoster vaccine. Due on due Goal Lipid panel. Due on due Goal Influenza vaccine. Due on due Goal Depression screening. Due on due Goal Tdap. Due on due Goal FOBT. Due on due Goal Pap/HPV testing. Due on due Goal Td vaccine. Due on due Goal Sigmoidoscopy. Due on due Goal Zoster vaccine. Due on due Goal Lipid panel. Due on due Goal Influenza vaccine. Due on due Goal Depression screening. Due on due Goal Tdap. Due on due Goal FOBT. Due on due Goal FOBT. Due on due Goal Tdap. Due on due Goal Depression screening. Due on due Goal Influenza vaccine. Due on due Goal Lipid panel. Due on due Goal Zoster vaccine. Due on due Goal Sigmoidoscopy. Due on due Goal Td vaccine. Due on due Goal Pap/HPV testing. Due on due Goal FOBT. Due on due Goal Tdap. Due on due Goal Depression screening. Due on due Goal Influenza vaccine. Due on due Goal Lipid panel. Due on due Goal Zoster vaccine. Due on due Goal Sigmoidoscopy. Due on due Goal Td vaccine. Due on due Goal Pap/HPV testing. Due on due Goal FOBT. Due on due Goal Tdap. Due on due Goal Depression screening. Due on due Goal Influenza vaccine. Due on due Goal Lipid panel. Due on due Goal Zoster vaccine. Due on due Goal Sigmoidoscopy. Due on due Goal Td vaccine. Due on due Goal Pap/HPV testing. Due on due Goal FOBT. Due on due Goal Tdap. Due on due Goal Depression screening. Due on due Goal Influenza vaccine. Due on due Goal Lipid panel. Due on due Goal Zoster vaccine. Due on due Goal Sigmoidoscopy. Due on due Goal Td vaccine. Due on due Goal Pap/HPV testing. Due on due Goal FOBT. Due on due Goal Pap/HPV testing. Due on due Goal Td vaccine. Due on due Goal Sigmoidoscopy. Due on due Goal Zoster vaccine. Due on due Goal Lipid panel. Due on due Goal Influenza vaccine. Due on Ma due Goal Depression screening. Due on due Goal Tdap. Due on due Goal FOBT. Due on due Goal Pap/HPV testing. Due on due Goal Td vaccine. Due on due Goal Sigmoidoscopy. Due on due Goal Lipid panel. Due on due Goal Influenza vaccine. Due on Ap due Goal Depression screening. Due on due Goal Tdap. Due on due Goal FOBT. Due on due Goal Pap/HPV testing. Due on due Goal Td vaccine. Due on due Goal Sigmoidoscopy. Due on due Goal Lipid panel. Due on due Goal Influenza vaccine. Due on due Goal Depression screening. Due on due Goal Tdap. Due on due Goal FOBT. Due on due Goal Pap/HPV testing. Due on due Goal Td vaccine. Due on due Goal Sigmoidoscopy. Due on due Goal Lipid panel. Due on due Goal Influenza vaccine. Due on due Goal Depression screening. Due on due Goal Tdap. Due on due Goal Tobacco cessation counseling completed Goal Tdap. Due on due Goal Depression screening. Due on due Goal Influenza vaccine. Due on due Goal Lipid panel. Due on due Goal Sigmoidoscopy. Due on due Goal Td vaccine. Due on due Goal Pap/HPV testing. Due on due Goal FOBT. Due on due Goal Tobacco cessation counseling completed Goal Tdap. Due on due Goal Depression screening. Due on due Goal Influenza vaccine. Due on due Goal Lipid panel. Due on due Goal Sigmoidoscopy. Due on due Goal Td vaccine. Due on 19 due Goal Pap/HPV testing. Due on due Goal FOBT. Due on due Goal Special diet education compl eted Goal Tobacco cessation counseling completed Goal Tdap. Due on due Goal Depression screening. Due on due Goal Influenza vaccine. Due on due Goal Lipid panel. Due on due Goal Sigmoidoscopy. Due on due Goal Td vaccine. Due on 19 due Goal Pap/HPV testing. Due on due Goal FOBT. Due on due Goal Tobacco cessation counseling completed Goal Special diet education compl eted Goal Tdap. Due on due Goal Depression screening. Due on due Goal Influenza vaccine. Due on due Goal Lipid panel. Due on due Goal Sigmoidoscopy. Due on due Goal Td vaccine. Due on due Goal Pap/HPV testing. Due on due Goal FOBT. Due on due Goal Tobacco cessation counseling completed Goal Special diet education compl eted Goal FOBT. Due on due Goal Pap/HPV testing. Due on due Goal Td vaccine. Due on due Goal Sigmoidoscopy. Due on due Goal Lipid panel. Due on due Goal Influenza vaccine. Due on due Goal Depression screening. Due on due Goal Tdap. Due on due Goal Tobacco cessation counseling completed Goal Special diet education compl eted Goal FOBT. Due on due Goal Pap/HPV testing. Due on due Goal Td vaccine. Due on due Goal Sigmoidoscopy. Due on due Goal Lipid panel. Due on due Goal Influenza vaccine. Due on due Goal Depression screening. Due on due Goal Tdap. Due on due Goal Tobacco cessation counseling completed Goal Special diet education compl eted Goal FOBT. Due on due Goal Pap/HPV testing. Due on due Goal Td vaccine. Due on due Goal Sigmoidoscopy. Due on due Goal Lipid panel. Due on due Goal Influenza vaccine. Due on due Goal Depression screening. Due on due Goal Tdap. Due on due Goal Tobacco cessation counseling completed Goal Special diet education compl eted Goal FOBT. Due on due Goal Pap/HPV testing. Due on due Goal Td vaccine. Due on due Goal Sigmoidoscopy. Due on due Goal Lipid panel. Due on due Goal Influenza vaccine. Due on due Goal Depression screening. Due on due Goal Tdap. Due on due Goal Tobacco cessation counseling completed Goal Special diet education compl eted Goal FOBT. Due on due Goal Pap/HPV testing. Due on due Goal Td vaccine. Due on due Goal Sigmoidoscopy. Due on due Goal Lipid panel. Due on due Goal Influenza vaccine. Due on due Goal Depression screening. Due on due Goal Tdap. Due on due Goal Tobacco cessation counseling completed Goal Special diet education compl eted Goal Tdap. Due on due Goal Depression screening. Due on due Goal Influenza vaccine. Due on due Goal Lipid panel. Due on due Goal Sigmoidoscopy. Due on due Goal Td vaccine. Due on due Goal Pap/HPV testing. Due on due Goal FOBT. Due on due Goal Special diet education compl eted Goal Tdap. Due on due Goal Depression screening. Due on due Goal Influenza vaccine. Due on due Goal Lipid panel. Due on due Goal Sigmoidoscopy. Due on due Goal Td vaccine. Due on due Goal Pap/HPV testing. Due on due Goal FOBT. Due on due Goal Tobacco cessation counseling completed Goal Special diet education compl eted Goal FOBT. Due on due Goal Pap/HPV testing. Due on due Goal Td vaccine. Due on due Goal Sigmoidoscopy. Due on due Goal Lipid panel. Due on due Goal Influenza vaccine. Due on due Goal Depression screening. Due on due Goal Tdap. Due on due Goal Tobacco cessation counseling completed Goal Special diet education compl eted Goal Tdap. Due on due Goal Depression screening. Due on due Goal Influenza vaccine. Due on due Goal Lipid panel. Due on 019 due Goal Sigmoidoscopy. Due on due Goal Td vaccine. Due on 19 due Goal Pap/HPV testing. Due on due Goal FOBT. Due on due Goal Tobacco cessation counseling completed Goal Special diet education compl eted Goal Tdap. Due on due Goal Depression screening. Due on due Goal Influenza vaccine. Due on due Goal Lipid panel. Due on 018 due Goal Sigmoidoscopy. Due on due Goal Td vaccine. Due on 18 due Goal Pap/HPV testing. Due on due Goal FOBT. Due on due Goal Special diet education compl eted Goal Tobacco cessation counseling completed Goal Tdap. Due on due Goal Depression screening. Due on due Goal Influenza vaccine. Due on due Goal Lipid panel. Due on 018 due Goal Sigmoidoscopy. Due on due Goal Td vaccine. Due on 18 due Goal Pap/HPV testing. Due on due Goal FOBT. Due on due Goal Special diet education compl eted Goal FOBT. Due on due Goal Pap/HPV testing. Due on due Goal Td vaccine. Due on 18 due Goal Sigmoidoscopy. Due on due Goal Lipid panel. Due on due Goal Influenza vaccine. Due on due Goal Depression screening. Due on due Goal Tdap. Due on due Goal Special diet education compl eted Goal Tdap. Due on due Goal Depression screening. Due on due Goal Influenza vaccine. Due on due Goal Lipid panel. Due on due Goal Sigmoidoscopy. Due on due Goal Td vaccine. Due on due Goal Pap/HPV testing. Due on due Goal FOBT. Due on due Goal Special diet education compl eted Goal Lipid panel. Due on due Goal Influenza vaccine. Due on due Goal Depression screening. Due on due Goal Tdap. Due on due Goal FOBT. Due on due Goal Pap/HPV testing. Due on due Goal Td vaccine. Due on due Goal Sigmoidoscopy. Due on due Goal Special diet education compl eted Goal Sigmoidoscopy. Due on due Goal FOBT. Due on due Goal Pap/HPV testing. Due on due Goal Td vaccine. Due on due Goal Lipid panel. Due on due Goal Influenza vaccine. Due on due Goal Depression screening. Due on due Goal Tdap. Due on due Goal Special diet education compl eted Goal Lipid panel. Due on 018 due Goal Influenza vaccine. Due on due Goal Depression screening. Due on due Goal Tdap. Due on due Goal Sigmoidoscopy. Due on due Goal FOBT. Due on due Goal Pap/HPV testing. Due on due Goal Td vaccine. Due on due Goal Special diet education compl eted Goal Lipid panel. Due on due Goal Influenza vaccine. Due on due Goal Depression screening. Due on due Goal Tdap. Due on due Goal Sigmoidoscopy. Due on due Goal FOBT. Due on due Goal Pap/HPV testing. Due on due Goal Td vaccine. Due on due Goal Special diet education compl eted Goal Td vaccine. Due on 18 due Goal Pap/HPV testing. Due on due Goal FOBT. Due on due Goal Sigmoidoscopy. Due on due Goal Tdap. Due on due Goal Depression screening. Due on due Goal Influenza vaccine. Due on Ap due Goal Lipid panel. Due on 018 due Goal Special diet education compl eted Goal Td vaccine. Due on 18 due Goal Pap/HPV testing. Due on due Goal FOBT. Due on due Goal Sigmoidoscopy. Due on due Goal Tdap. Due on due Goal Depression screening. Due on due Goal Influenza vaccine. Due on due Goal Depression screening. Due on due Goal FOBT. Due on due Goal Td vaccine. Due on 18 due Goal Tdap. Due on due Goal Influenza vaccine. Due on due Goal Pap/HPV testing. Due on due Goal Sigmoidoscopy. Due on due Goal Sigmoidoscopy. Due on due Goal FOBT. Due on due Goal Pap/HPV testing. Due on due Goal Tdap. Due on due Goal Influenza vaccine. Due on due Goal Td vaccine. Due on 18 due Goal Depression screening. Due on due Goal Pap/HPV testing. Due on due Goal Td vaccine. Due on 17 due Goal Influenza vaccine. Due on due Goal Sigmoidoscopy. Due on due Goal Tdap. Due on due Goal FOBT. Due on due Goal Depression screening. Due on due Goal Td vaccine. Due on 17 due Goal Depression screening. Due on due Goal Pap/HPV testing. Due on due Goal FOBT. Due on due Goal Tdap. Due on due Goal Influenza vaccine. Due on due Goal Sigmoidoscopy. Due on due Goal Sigmoidoscopy. Due on due Goal Influenza vaccine. Due on due Goal Tdap. Due on due Goal Pap/HPV testing. Due on due Goal FOBT. Due on due Goal Td vaccine. Due on 17 due Goal Depression screening. Due on due Goal Depression screening. Due on due Goal Influenza vaccine. Due on due Goal Td vaccine. Due on 17 due Goal Pap/HPV testing. Due on due Goal Sigmoidoscopy. Due on due Goal FOBT. Due on due Goal Tdap. Due on due Goal Td vaccine. Due on 17 due Goal Tdap. Due on due Goal Pap/HPV testing. Due on due Goal Depression screening. Due on due Goal Influenza vaccine. Due on due Goal FOBT. Due on due Goal Sigmoidoscopy. Due on due Goal Tdap. Due on due Goal FOBT. Due on due Goal Pap/HPV testing. Due on due Goal Influenza vaccine. Due on due Goal Td vaccine. Due on 17 due Goal Sigmoidoscopy. Due on due Goal Depression screening. Due on due Goal FOBT. Due on due Goal Depression screening. Due on due Goal Tdap. Due on due Goal Influenza vaccine. Due on due Goal Sigmoidoscopy. Due on due Goal Pap/HPV testing. Due on due Goal Td vaccine. Due on due Goal Influenza vaccine. Due on due Goal Sigmoidoscopy. Due on due Goal Pap/HPV testing. Due on due Goal FOBT. Due on due Goal Depression screening. Due on due Goal Td vaccine. Due on 17 due Goal Tdap. Due on due Goal Tdap. Due on due Goal Influenza vaccine. Due on due Goal Td vaccine. Due on 17 due Goal Pap/HPV testing. Due on due Goal Sigmoidoscopy. Due on due Goal FOBT. Due on due Goal Depression screening. Due on due Goal Sigmoidoscopy. Due on due Goal Tdap. Due on due Goal Depression screening. Due on due Goal FOBT. Due on due Goal Pap/HPV testing. Due on due Goal Influenza vaccine. Due on due Goal Td vaccine. Due on due Goal Depression screening. Due on due Goal Tdap. Due on due Goal Td vaccine. Due on due Goal Pap/HPV testing. Due on due Goal Sigmoidoscopy. Due on due Goal FOBT. Due on due Goal Influenza vaccine. Due on due Goal Pap/HPV testing. Due on due Goal Td vaccine. Due on due Goal Influenza vaccine. Due on due Goal Depression screening. Due on due Goal Sigmoidoscopy. Due on due Goal FOBT. Due on due Goal Tdap. Due on due Goal Pap/HPV testing. Due on due Goal Sigmoidoscopy. Due on due Goal Influenza vaccine. Due on due Goal FOBT. Due on due Goal Tdap. Due on due Goal Td vaccine. Due on 17 due Goal Depression screening. Due on due Goal Pap/HPV testing. Due on due Goal Influenza vaccine. Due on due Goal Depression screening. Due on due Goal FOBT. Due on due Goal Tdap. Due on due Goal Sigmoidoscopy. Due on due Goal Td vaccine. Due on 16 due Goal Influenza vaccine. Due on due Goal Sigmoidoscopy. Due on due Goal Td vaccine. Due on 16 due Goal Depression screening. Due on due Goal FOBT. Due on due Goal Pap/HPV testing. Due on due Goal Tdap. Due on due Goal Tdap. Due on due Goal Depression screening. Due on due Goal Sigmoidoscopy. Due on due Goal FOBT. Due on due Goal Td vaccine. Due on 16 due Goal Influenza vaccine. Due on due Goal Pap/HPV testing. Due on due Goal FOBT. Due on due Goal Td vaccine. Due on 16 due Goal Pap/HPV testing. Due on due Goal Depression screening. Due on due Goal Sigmoidoscopy. Due on due Goal Tdap. Due on due Goal Influenza vaccine. Due on due Goal Tdap. Due on due Goal Depression screening. Due on due Goal Td vaccine. Due on 16 due Goal Sigmoidoscopy. Due on due Goal Pap/HPV testing. Due on due Goal Influenza vaccine. Due on due Goal FOBT. Due on due Goal Sigmoidoscopy. Due on due Goal Pap/HPV testing. Due on due Goal Tdap. Due on due Goal Depression screening. Due on due Goal FOBT. Due on due Goal Influenza vaccine. Due on due Goal Td vaccine. Due on due Goal Pap/HPV testing. Due on due Goal Tdap. Due on due Goal Td vaccine. Due on due Goal Depression screening. Due on due Goal Sigmoidoscopy. Due on due Goal FOBT. Due on due Goal Influenza vaccine. Due on due Goal Td vaccine. Due on due Goal Depression screening. Due on due Goal Influenza vaccine. Due on due Goal Sigmoidoscopy. Due on due Goal Tdap. Due on due Goal Pap/HPV testing. Due on due Goal FOBT. Due on due Goal Td vaccine. Due on 16 due Goal Tdap. Due on due Goal FOBT. Due on due Goal Pap/HPV testing. Due on due Goal Sigmoidoscopy. Due on due Goal Depression screening. Due on due Goal Influenza vaccine. Due on due Goal Pap/HPV testing. Due on due Goal Sigmoidoscopy. Due on due Goal Tdap. Due on due Goal Td vaccine. Due on 16 due Goal Depression screening. Due on due Goal Influenza vaccine. Due on due Goal FOBT. Due on due Goal Sigmoidoscopy. Due on due Goal Depression screening. Due on due Goal Colonoscopy. Due on 016 due Goal Pap/HPV testing. Due on due Goal Influenza vaccine. Due on due Goal Tdap. Due on due Goal Td vaccine. Due on 16 due Goal FOBT. Due on due Goal Colonoscopy. Due on 015 due Goal Tdap. Due on due Goal Depression screening. Due on due Goal Pap/HPV testing. Due on due Goal Influenza vaccine. Due on due Goal Sigmoidoscopy. Due on due Goal Td vaccine. Due on due Goal FOBT. Due on due Goal Td vaccine. Due on 15 due Goal Pap/HPV testing. Due on due Goal Colonoscopy. Due on due Goal FOBT. Due on due Goal Depression screening. Due on due Goal Sigmoidoscopy. Due on due Goal Influenza vaccine. Due on due Goal Tdap. Due on due Goal FOBT. Due on due Goal Td vaccine. Due on due Goal Pap/HPV testing. Due on due Goal Sigmoidoscopy. Due on due Goal Tdap. Due on due Goal Depression screening. Due on due Goal Colonoscopy. Due on 015 due Goal Influenza vaccine. Due on due Goal Colonoscopy. Due on due Goal Depression screening. Due on due Goal FOBT. Due on due Goal Influenza vaccine. Due on due Goal Pap/HPV testing. Due on due Goal Sigmoidoscopy. Due on due Goal Td vaccine. Due on 15 due Goal Tdap. Due on due Goal Colonoscopy. Due on Feb-20-2 014 due Goal Mammogram. Due on 4 due Goal Tobacco cessation counseling completed Goal Tobacco cessation counseling completed Goal Tobacco cessation counseling completed Goal Tobacco cessation counseling completed Goal Tobacco cessation counseling completed Goal Tobacco cessation counseling completed Goal Tobacco cessation counseling completed Goal Tobacco cessation counseling completed Referral Ordered: CT ABDOMEN W/DYE ordered Referral Ordered: CT ANGIO LWR EXTR W/O&W/DYE ordered Referral Ordered: JOHANA JIMENEZ (related to Peripheral vascular disease, unspecified) ordered Referral Referred To: JOHANA JIMENEZ [id number] [facility] [place]
[address], [id number] Ordered: Referrals: JOHANA JIMENEZ. Evaluate and treat ordered Referral Ordered: CT THORAX W/O DYE ordered Referral Ordered: COLONOSCOPY AND BIOPSY ordered Referral Ordered: DXA BONE DENSITY, AXIAL ordered Referral Ordered: MAMMOGRAM, ONE BREAST L ordered Referral Ordered: MRI NECK SPINE W/O DYE ordered Referral Ordered: MAMMOGRAM, ONE BREAST ordered Referral Ordered: MAMMOGRAM, SCREENING ordered History Of Present Illness Encounter Date Complaint History Of Prese nt Illness physical Pt needs annual physical Pt has chronic anxiety and depression Pt takes cymbalta and xanax PRn and doing ok Pt denies any suicidal or homicidal thought Pt denies any crying spells. Pt has osteoporosis. Pt is on prolia and calcium and D. Pt has CAD and PAD pt sees bulk sealer and she is on lisinopril, crestor and coreg. pt needs coreg refilled. Pt has chronic pain. Pt denies any new complaints pt has high glucose Pt drank a lot of soda anxiety1 Pt has anxiety a nd depression Pt denies any suicidal or homicidal thought. 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 pt takes norco PRN for pain physical Pt needs annual physical Pt has chronic anxiety and depression Pt takes cymbalta and xanax PRn and doing ok Pt denies any suicidal or homicidal thought Pt denies any crying spells. Pt has osteoporosis. Pt is on prolia and calcium and D. Pt has CAD and PAD pt sees bulk sealer and she is on lisinopril, crestor and coreg. pt needs coreg refilled. Pt has chronic pain. Pt denies any new complaints pt has high glucose Pt drank a lot of soda anxiety1 Pt has anxiety a nd depression Pt started cymbalta last month and she has not noticed much improvement with her mood Pt denies any suicidal or homicidal thought Pt has been having crying spells Pt takes xanax PRN pain Pt has chronic l ow back pain due to DDD Pt denies any loss of bowel or bladder control or saddle area paresthesia . pt takes norco PRN for pain HTN Pt has HTN, Pt t akes lisinopril and her bp is ok HLP Pt has HLP Pt is on crestor Pt denies any myalgia HLP pt has HLP Pt ta vernon crestor. Pt denies any myalgia anxiety1 Pt has chronic a nxiety and depression. Pt denies any suicidal or homicidal thought Pt has been having crying spells. her symptoms have been worse since her sister's passing. . Pt takes xanax PRn only pain Pt has chronic l ow back pain due to DDD Pt denies any loss of bowel or bladder control or saddle area paresthesia . pt takes norco PRN for pain anxiety1 Pt has chronic a nxiety. Pt denies any depression or any suicidal or homicidal thought Pt denies any crying spells. Pt takes xanax PRn and doing ok pain Pt has chronic l ow back pain due to DDD Pt denies any loss of bowel or bladder control or saddle area paresthesia . pt takes norco PRN for pain shingle1 Pt was diagnosed for acute shingle left side of lower back area since one week ago. Pt went to urgent care and she was started on valtrex and her symptoms improved. Pt notices some drying up of the blisters itching1 Pt c/o some itch ing around left upper arm area for several weeks Pt denies any rash Pt denies any worsening itch at night Pt denies any itching around inner thigh or other area. Pt denies any sick contact anxiety1 Pt has chronic a nxiety. Pt denies any depression or any suicidal or homicidal thought Pt denies any crying spells. Pt takes xanax PRn and doing ok anxiety1 Pt has chronic a nxiety Pt denies any depression or any suicidal or homicidal thought Pt denies any crying spells Pt needs xanax refilled. Pt is having a hard time dealing with her sister pain Pt has chronic l ow back pain due to DDD Pt denies any loss of bowel or bladder control or saddle area paresthesia . pt takes norco PRN for pain cold sore1 pt c/o painful c old sore left upper lip for 2-3 days pt denies any bleeding anxiety1 Pt has chronic a nxiety Pt denies any depression or any suicidal or homicidal thought Pt denies any crying spells Pt needs xanax refilled. Pt is having a hard time dealing with her sister back pain1 Pt has chronic l ow back pain due to DDD Pt denies any loss of bowel or bladder control or saddle area paresthesia . pt takes norco PRN for pain CAD Pt has CAD with stent. Pt takes coreg, lisinopril and crestor pt denies any chest pain Pt is out of coreg Pt has not been able to reach her bulk sealer. emphysema1 Pt has mild emph ysema. Pt states that albuterol PRN is helping her sob. Pt denies any chest pain or hemoptysis. back pain1 Pt has chronic l ow back pain due to DDD Pt denies any loss of bowel or bladder control or saddle area paresthesia . pt takes norco PRN for pain. Pt still has some norco left SOB Pt has emphysema and she notices worsening sob lately., especially with physical exertion. Pt denies any hemoptysis anxiety1 Pt has chronic a nxiety Pt denies any depression or any suicidal or homicidal thought Pt denies any crying spells Pt needs xanax refilled. Pt is having a hard time dealing with her sister anxiety1 Pt has chronic a nxiety Pt denies any depression or any suicidal or homicidal thought Pt denies any crying spells Pt needs xanax refilled. Pt is having a hard time dealing with her sister back pain1 Pt has chronic l ow back pain due to DDD Pt denies any loss of bowel or bladder control or saddle area paresthesia . pt takes norco PRN for pain weight gain1 Pt has been stre ss eating and she has been gaining weight sob Pt feels mild so b recently, especially with physical exertion. Pt does have emphysema on chest CT. Pt no longer smoking Pt denies any edema or chest pain. Pt thinks that she is having anxiety, which causes her to feel sob osteopenia1 Pt has osteopeni a on bone density Pt has been on prolia for 5 years. Her bone density has not change much and remain at osteopenia range anxiety1 Pt has chronic a nxiety Pt denies any depression or any suicidal or homicidal thought Pt denies any crying spells Pt needs xanax refilled back pain1 Pt has chronic l ow back pain due to DDD Pt denies any loss of bowel or bladder control or saddle area paresthesia . Pt is weaning down on norco and she still has some norco left pain pt has chronic l ow back pain Pt denies any worsening pain pt denies any loss of bladder control Pt has DDD Pt failed NSAID and ultram. Pt takes norco PRN for pain and doing ok .Pt has mild sciatica and leg numbness. Pt denies any saddle area paresthesia. Pt wants to wean down on norco dose anxiety1 Pt has chronic a nxiety Pt denies any depression or any suicidal thought ,pt denies any crying spells. Pt failed SSRI. Pt takes xanax PRn and doing ok. emphysema1 Pt needs LDCT Pt denies any hemoptysis, sob or cough. Pt no longer smoking Pt has mild emphysema anxiety1 Pt has chronic a nxiety Pt denies any depression or any suicidal thought ,pt denies any crying spells. Pt failed SSRI. Pt takes xanax PRn and doing ok. her sister just she feels more anxious lately pain pt has chronic l ow back pain Pt denies any worsening pain pt denies any loss of bladder control Pt has DDD Pt failed NSAID and ultram. Pt takes norco PRN for pain and doing ok .Pt has mild sciatica and leg numbness. Pt denies any saddle area paresthesia. Pt states that she still has some norco left osteopenia1 Pt has osteoporo sis. Pt gets prolia Pt has not done bone density for several years HTN Pt takes lisinop ril and her bp is ok. anxiety1 Pt has chronic a nxiety Pt denies any depression or any suicidal thought ,pt denies any crying spells. Pt failed SSRI. Pt takes xanax PRn and doing ok pain pt has chronic l ow back pain Pt denies any worsening pain pt denies any loss of bladder control Pt has DDD Pt failed NSAID and ultram. Pt takes norco PRN for pain and doing ok .Pt has mild sciatica and leg numbness. Pt denies any saddle area paresthesia. pt states that she does not need norco refilled yet HLP Pt has HLP Pt moe ornelas Pt denies any myalgia. Her lipid profile is ok Pt needs crestor refilled . anxiety1 Pt has chronic a nxiety Pt denies any depression or any suicidal thought ,pt denies any crying spells. Pt failed SSRI. Pt takes xanax PRn and doing ok pain pt has chronic l ow back pain Pt denies any worsening pain pt denies any loss of bladder control Pt has DDD Pt failed NSAID and ultram. Pt takes norco PRN for pain and doing ok .Pt has mild sciatica and leg numbness. Pt denies any saddle area paresthesia. pt states that she does not need norco refilled yet pain pt has chronic l ow back pain Pt denies any worsening pain pt denies any loss of bladder control Pt has DDD Pt failed NSAID and ultram. Pt takes norco PRN for pain and doing ok .Pt has mild sciatica and leg numbness. Pt denies any saddle area paresthesia HLP Pt has HLP Pt ta vernon ornelas. Pt denies any myalgia anxiety1 Pt has chronic a nxiety Pt denies any depression or any suicidal thought ,pt denies any crying spells. Pt failed SSRI. Pt takes xanax PRn and doing ok anxiety1 Pt has chronic a nxiety Pt denies any depression or any suicidal thought ,pt denies any crying spells. Pt failed SSRI. Pt takes xanax PRn and doing ok pain pt has chronic l ow back pain Pt denies any worsening pain pt denies any loss of bladder control Pt has DDD Pt failed NSAID and ultram. Pt takes norco PRN for pain and doing ok .Pt has mild sciatica and leg numbness. Pt denies any saddle area paresthesia anxiety1 Pt has chronic a nxiety Pt denies any depression or any suicidal thought ,pt denies any crying spells. Pt failed SSRI. Pt takes xanax PRn and doing ok pain pt has chronic l ow back pain Pt denies any worsening pain pt denies any loss of bladder control Pt has DDD Pt failed NSAID and ultram. Pt takes norco PRN for pain and doing ok .Pt has mild sciatica and leg numbness. Pt denies any saddle area paresthesia pain pt has chronic l ow back pain Pt denies any worsening pain pt denies any loss of bladder control Pt has DDD Pt failed NSAID and ultram. Pt takes norco PRN for pain and doing ok .Pt has mild sciatica and leg numbness. Pt denies any saddle area paresthesia anxiety1 Pt has chronic a nxiety Pt denies any depression or any suicidal thought ,pt denies any crying spells. Pt failed SSRI. Pt takes xanax PRn and doing ok KCL Pt has mildly hi gh KCL pt denies any chest pain or palpitation Pt eats a lot of almonds and also banana glucose1 Pt has mildly hi gh glucose pt denies any polyuria, polyuria .Her glucose is borderline high but A1c ok. Pt drinks a lot of soda anxiety1 Pt has chronic a nxiety Pt denies any depression or any suicidal thought ,pt denies any crying spells. Pt failed SSRI. Pt takes xanax PRn and doing ok pain pt has chronic l ow back pain Pt denies any worsening pain pt denies any loss of bladder control Pt has DDD Pt failed NSAID and ultram. Pt takes norco PRN for pain and doing ok .Pt has mild sciatica and leg numbness. Pt denies any saddle area paresthesia anxitey1 Pt has chronic a nxiety Pt denies any depression or any suicidal thought ,pt denies any crying spells. Pt failed SSRI. Pt takes xanax PRn and doing ok pain pt has chronic l ow back pain Pt denies any worsening pain pt denies any loss of bladder control Pt has DDD Pt failed NSAID and ultram. Pt takes norco PRN for pain and doing ok .Pt has mild sciatica and leg numbness. Pt denies any saddle area paresthesia DM Pt has high gluc ose Pt denies any polyuria and polydipsia Pt states that she drank a soda before lab. her sodium is low also Pt denies any chest pain or headache or confusion physical Pt needs annual physical Pt has chronic low back pain and anxiety Pt denies any sciatica or any loss of bowel or bladder control or saddle area paresthesia pt denies any depression or any suicidal or homicidal thought pt has CAD with stent .Pt sees cardiology Pt takes coreg, crestor, lisinopril. Pt denies any chest pain Pt has osteoporosis. Pt takes calcium and D and she does prolia per endo. Pt overall feels well. pain pt has chronic l ow back pain Pt denies any worsening pain pt denies any loss of bladder control Pt has DDD Pt failed NSAID and ultram. Pt takes norco PRN for pain and doing ok .Pt has mild sciatica and leg numbness. Pt denies any saddle area paresthesia emphysema1 Pt no longer smo gama Pt has mild COPD on chest CT pt denies any sob, hemoptysis, or cough anxiety1 Pt has chronic a nxiety Pt denies any depression or any suicidal thought ,pt denies any crying spells. Pt failed SSRI. Pt takes xanax PRn and doing ok pain pt has chronic l ow back pain Pt denies any worsening pain pt denies any loss of bladder control Pt has DDD Pt failed NSAID and ultram. Pt takes norco PRN for pain and doing ok .Pt has mild sciatica and leg numbness. Pt denies any saddle area paresthesia anxiety1 Pt has chronic a nxiety Pt denies any depression or any suicidal thought ,pt denies any crying spells. Pt failed SSRI. Pt takes xanax PRn and doing ok tobacco Pt needs LDCT fo r lung CA screening Pt denies any hemoptysis, sob or cough Pt no longer smoking pain pt has chronic l ow back pain Pt denies any worsening pain pt denies any loss of bladder control Pt has DDD Pt failed NSAID and ultram. Pt takes norco PRN for pain and doing ok .Pt has mild sciatica and leg numbness. Pt denies any saddle area paresthesia anxiety1 Pt has chronic a nxiety Pt denies any depression or any suicidal thought ,pt denies any crying spells. Pt failed SSRI. Pt takes xanax PRn and doing ok osteopenia1 Pt has osteopeni a. Pt takes calcium and D. She takes vitamin D every two weeks now. HTN Pt has HTN. Pt t akes coreg and lisinopril. Pt needs lisinopril refill. her bp is ok anxiety1 Pt has chronic a nxiety Pt denies any depression or any suicidal thought ,pt denies any crying spells. Pt failed SSRI. Pt takes xanax PRn and doing ok pain pt has chronic l ow back pain Pt denies any worsening pain pt denies any loss of bladder control Pt has DDD Pt failed NSAID and ultram. Pt takes norco PRN for pain and doing ok .Pt has mild sciatica and leg numbness. Pt denies any saddle area paresthesia HLP Pt has HLP. Pt t akes crestor. Pt denies any myalgia. anxiety1 Pt has chronic a nxiety Pt denies any depression or any suicidal thought ,pt denies any crying spells. Pt failed SSRI. Pt takes xanax PRn and doing ok PAD Pt has PAD and s he just underwent angioplasty right leg with ballon and she is doing ok. Pt denies any edema or pain or paresthesia pain pt has chronic l ow back pain Pt denies any worsening pain pt denies any loss of bladder control Pt has DDD Pt failed NSAID and ultram. Pt takes norco PRN for pain and doing ok .Pt has mild sciatica and leg numbness. Pt denies any saddle area paresthesia PAD Pt has PAD on ri ght leg. Pt had CTA last month which showed blockage per patient from cardiology. Pt was referred to vascular surgeon for consultation for surgery. She is on crestor and lisinopril. Pt does have mild claudication right leg anxiety1 Pt has chronic a nxiety Pt denies any depression or any suicidal thought ,pt denies any crying spells. Pt failed SSRI. Pt takes xanax PRn and doing ok pain pt has chronic l ow back pain Pt denies any worsening pain pt denies any loss of bladder control Pt has DDD Pt failed NSAID and ultram. Pt takes norco PRN for pain and doing ok .Pt has mild sciatica and leg numbness. Pt denies any saddle area paresthesia pain pt has chronic l ow back pain Pt denies any worsening pain pt denies any loss of bladder control Pt has DDD Pt failed NSAID and ultram. Pt takes norco PRN for pain and doing ok .Pt has mild sciatica and leg numbness. Pt denies any saddle area paresthesia anxiety1 Pt has chronic a nxiety Pt denies any depression or any suicidal thought ,pt denies any crying spells. Pt failed SSRI. Pt takes xanax PRn and doing ok anxiety1 Pt has chronic a nxiety Pt denies any depression or any suicidal thought ,pt denies any crying spells. Pt failed SSRI. Pt takes xanax PRn and doing ok pain pt has chronic l ow back pain Pt denies any worsening pain pt denies any loss of bladder control Pt has DDD Pt failed NSAID and ultram. Pt takes norco PRN for pain and doing ok .Pt has mild sciatica and leg numbness. Pt denies any saddle area paresthesia anxiety1 Pt has chronic a nxiety Pt denies any depression or any suicidal thought ,pt denies any crying spells. Pt failed SSRI. Pt takes xanax PRn and doing ok pain pt has chronic l ow back pain Pt denies any worsening pain pt denies any loss of bladder control Pt has DDD Pt failed NSAID and ultram. Pt takes norco PRN for pain and doing ok .Pt has mild sciatica and leg numbness. Pt denies any saddle area paresthesia anxiety1 Pt has chronic a nxiety Pt denies any depression or any suicidal thought ,pt denies any crying spells. Pt failed SSRI. Pt takes xanax PRn and doing ok pain pt has chronic l ow back pain Pt denies any worsening pain pt denies any loss of bladder control Pt has DDD Pt failed NSAID and ultram. Pt takes norco PRN for pain and doing ok .Pt has mild sciatica and leg numbness. Pt denies any saddle area paresthesia pain pt has chronic l ow back pain Pt denies any worsening pain pt denies any loss of bladder control Pt has DDD Pt failed NSAID and ultram. Pt takes norco PRN for pain and doing ok .Pt has mild sciatica and leg numbness. Pt denies any saddle area paresthesia anxiety1 Pt has chronic a nxiety Pt denies any depression or any suicidal thought ,pt denies any crying spells. Pt failed SSRI. Pt takes xanax PRn and doing ok physical Pt needs annual physical Pt has chronic low back pain and anxiety Pt denies any sciatica or any loss of bowel or bladder control or saddle area paresthesia pt denies any depression or any suicidal or homicidal thought pt has CAD with stent .Pt sees cardiology Pt takes coreg, crestor, lisinopril. Pt denies any chest pain Pt has osteoporosis. Pt takes calcium and D and she does prolia per endo. Pt overall feels well. pain pt has chronic l ow back pain Pt denies any worsening pain pt denies any loss of bladder control Pt has DDD Pt failed NSAID and ultram. Pt takes norco PRN for pain and doing ok .Pt has mild sciatica and leg numbness. anxiety1 Pt has chronic a nxiety Pt denies any depression or any suicidal thought ,pt denies any crying spells. Pt failed SSRI. Pt takes xanax PRn and doing ok glucose1 Pt has high gluc ose. Pt denies any polyuria, polydipsia. Pt does eat a lot sweet and carb. her A1c was ok TG Pt has borderlin e high TG Pt takes crestor. Pt denies any myalgia colon polyp1 Pt had tubular a denoma on colonoscopy 2009 and repeat colonoscopy 2015 was ok. She was told to repeat in 2020 but she does not want repeat colonoscopy Pt denies any GI issue. Pt had colonguard which was normal pain pt has chronic l ow back pain Pt denies any worsening pain pt denies any loss of bladder control Pt has DDD Pt failed NSAID and ultram. Pt takes norco PRN for pain and doing ok .Pt has mild sciatica and leg numbness. Pt denies any saddle area paresthesia anxiety1 Pt has chronic a nxiety Pt denies any depression or any suicidal thought ,pt denies any crying spells. Pt failed SSRI. Pt takes xanax PRn and doing ok pain pt has chronic l ow back pain Pt denies any worsening pain pt denies any loss of bladder control Pt has DDD Pt failed NSAID and ultram. Pt takes norco PRN for pain and doing ok .Pt has mild sciatica and leg numbness. anxiety1 Pt has chronic a nxiety Pt denies any depression or any suicidal thought ,pt denies any crying spells. Pt failed SSRI. Pt takes xanax PRn and doing ok pain pt has chronic l ow back pain Pt denies any worsening pain pt denies any loss of bladder control Pt has DDD Pt failed NSAID and ultram. Pt takes norco PRN for pain and doing ok .Pt has mild sciatica and leg numbness. annxiety1 Pt has chronic a nxiety Pt denies any depression or any suicidal thought ,pt denies any crying spells. Pt failed SSRI. Pt takes xanax PRn and doing ok HTN Pt has mild HTN. Pt takes lisinopril and her bp is ok. Pt denies any chest pain or headache HLP Pt has HLP. Pt t milvia ornelas. pt denies any myalgia pain pt has chronic l ow back pain Pt denies any worsening pain pt denies any loss of bladder control Pt has DDD Pt failed NSAID and ultram. Pt takes norco PRN for pain and doing ok .Pt has mild sciatica and leg numbness. anxiety1 Pt has chronic a nxiety Pt denies any depression or any suicidal thought ,pt denies any crying spells. Pt failed SSRI. Pt takes xanax PRn and doing ok osteopenia1 Pt has osteopeni a and low D ,Pt is on prolia per hematology. Pt needs vitamin D refilled pain pt has chronic l ow back pain Pt denies any worsening pain pt denies any loss of bladder control Pt has DDD Pt failed NSAID and ultram. Pt takes norco PRN for pain and doing ok .Pt has mild sciatica and leg numbness. anxiety1 Pt has chronic a nxiety Pt denies any depression or any suicidal thought ,pt denies any crying spells. Pt failed SSRI. Pt takes xanax PRn and doing ok pain pt has chronic l ow back pain Pt denies any worsening pain pt denies any loss of bladder control Pt has DDD Pt failed NSAID and ultram. Pt takes norco PRN for pain and doing ok .Pt has mild sciatica and leg numbness. anxiety Pt has chronic a nxiety Pt denies any depression or any suicidal thought ,pt denies any crying spells. Pt failed SSRI. Pt takes xanax PRn and doing ok HLP Pt has HLP Pt ta kes crestor Pt nga any myalgia tobacco pt no longer smo kes Pt had normal LDCT .Pt denies any hemoptysis, sob or cough pain pt has chronic l ow back pain Pt denies any worsening pain pt denies any loss of bladder control Pt has DDD Pt failed NSAID and ultram. Pt takes norco PRN for pain and doing ok .Pt has mild sciatica and leg numbness. anxiety Pt has chronic a nxiety Pt denies any depression or any suicidal thought ,pt denies any crying spells. Pt failed SSRI. Pt takes xanax PRn and doing ok pain pt has chronic l ow back pain Pt denies any worsening pain pt denies any loss of bladder control Pt has DDD Pt failed NSAID and ultram. Pt takes norco PRN for pain and doing ok .Pt has mild sciatica and leg numbness. anxiety Pt has chronic a nxiety Pt denies any depression or any suicidal thought ,pt denies any crying spells. Pt failed SSRI. Pt takes xanax PRn and doing ok renal stone Pt has large lef t side non obstructing stone without hydronephrosis. Pt denies any left flank pain Pt denies any urinary symptoms pt denies any fever, chill. the stone has not changed in size adrenal Pt has stable ad renal and splenic lesion, which are benign per radiology. tobacco1 Pt supposes to d o chest CT for lung CA screening but she did the abdominal CT instead??? tobacco1 Pt needs LDCT fo r lung CA screening Pt denies any hemoptysis, sob or cough. Pt no longer smoking anxiety1 Pt has chronic a nxiety Pt denies any depression or any suicidal thought ,pt denies any crying spells. Pt failed SSRI. Pt takes xanax PRn and doing ok pain pt has chronic l ow back pain Pt denies any worsening pain pt denies any loss of bladder control Pt has DDD Pt failed NSAID and ultram. Pt takes norco PRN for pain and doing ok .Pt has mild sciatica and leg numbness. anxiety Pt has chronic a nxiety Pt denies any depression or any suicidal thought ,pt denies any crying spells. Pt failed SSRI. Pt takes xanax PRn and doing ok pain pt has chronic l ow back pain Pt denies any worsening pain pt denies any loss of bladder control Pt has DDD Pt failed NSAID and ultram. Pt takes norco PRN for pain and doing ok .Pt has mild sciatica and leg numbness. physical Pt needs annual physical Pt has chronic low back pain due to DDD Pt denies any worsening pain Pt denies any loss of bladder or bowel control. PT has sciatica and leg numbness. Pt has chronic anxiety PT denies any depression or any suicidal thought ,PT denies any crying spells. Pt has CAD and PAD ,Pt sees cardiology. PT denies any chest pain ,Pt takes crestor, lisinopril, coreg. Her bp is stable. Pt has history of left breast CA s/p radiation and chemo with left mastectomy. Pt sees oncology. Pt has osteopenia. Pt is on calcium and D and prolia infusion every 6 months. Pt denies any other complaints pain pt has chronic l ow back pain Pt denies any worsening pain pt denies any loss of bladder control Pt has DDD Pt failed NSAID and ultram. Pt takes norco PRN for pain and doing ok .Pt has mild sciatica and leg numbness. anxiety1 Pt has chronic a nxiety Pt denies any depression or any suicidal thought ,pt denies any crying spells. Pt failed SSRI. Pt takes xanax PRn and doing ok pain pt has chronic l ow back pain Pt denies any worsening pain pt denies any loss of bladder control Pt has DDD Pt failed NSAID and ultram. Pt takes norco PRN for pain and doing ok .Pt has mild sciatica and leg numbness. anxiety1 Pt has chronic a nxiety Pt denies any depression or any suicidal thought ,pt denies any crying spells. Pt failed SSRI. Pt takes xanax PRn and doing ok pain pt has chronic l ow back pain Pt denies any worsening pain pt denies any loss of bladder control Pt has DDD Pt failed NSAID and ultram. Pt takes norco PRN for pain and doing ok .Pt has mild sciatica and leg numbness. anxiety Additional infor ronnie: Pt has chronic anxiety Pt denies any depression or any suicidal thought ,pt denies any crying spells. Pt failed SSRI. Pt takes xanax PRn and doing ok. PAD Pt has PAD ,Pt s ees cardiology Pt takes crestor and lisinopril. Her BP is stable. Pt denies any leg pain adrenal nodule1 Pt has left adre nal nodule, which is adenoma. Pt has indeterminate 1.7 cm spleen lesion, Pt has 11 mm renal stone left ureteropelvic junction. Pt denies any urinary symptoms. Pt has mild emphysema. Pt denies any sob pain pt has chronic l ow back pain Pt denies any worsening pain pt denies any loss of bladder control Pt has DDD Pt failed NSAID and ultram. Pt takes norco PRN for pain and doing ok .Pt has mild sciatica and leg numbness. anxiety1 Pt has chronic a nxiety Pt denies any depression or any suicidal thought ,pt denies any crying spells. Pt failed SSRI. Pt takes xanax PRn and doing ok PAD Pt sees cardiolo gy. Pt started lisinopril. Pt doing ok .Pt denies any cold extremity or toe discoloration HLP Pt needs crestor refilled. Pt denies any myalgia. osteopenia1 Pt has osteopeni a. Pt takes calcium and D. Pt is on prolia every 6 months by oncology. Pt denies any bone pain PAD Pt has very mild claudication but not bad per patient Pt has mild neuropathy symptoms. 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 Pt denies any cold extremity .Pt denies any toe discoloration adrenal mass1 Pt has adrenal a nd spleen mass. Pt has not had CT done yet .Pt denies any abd pain pain1 pt has chronic l ow back pain Pt denies any worsening pain pt denies any loss of bladder control Pt has DDD Pt failed NSAID and ultram. Pt takes norco PRN for pain and doing ok .Pt has mild sciatica and leg numbness. anxiety1 Pt has chronic a nxiety Pt denies any depression or any suicidal thought ,pt denies any crying spells. Pt failed SSRI. Pt takes xanax PRn and doing ok pain pt has chronic l ow back pain Pt denies any worsening pain pt denies any loss of bladder control Pt has DDD Pt failed NSAID and ultram. Pt takes norco PRN for pain and doing ok .Pt has mild sciatica and leg numbness. anxiety1 Pt has chronic a nxiety Pt denies any depression or any suicidal thought ,pt denies any crying spells. Pt failed SSRI. Pt takes xanax PRn and doing ok thyroid1 Pt had mildly el evated thyroid Pt had repeat thyroid done and was ok. Her TPo and TSI are normal .Pt denies any dysphagia or neck pain hyponatremia1 Hyponatremia res olved. Pt denies any headache or chest pain PAD Pt has PAD Pt di d not do ct angiogram and instead. she did arterial doppler from cardiology. Pt told me she does not know anything about order from cardiology .Pt did not talk to cardiology. pt denies any right leg pain or cold extremity or toe discoloration or paresthesia glucose1 Pt has high gluc ose Pt denies any polyuria, polydipsia thyroid1 Pt has high thyr oid on recent lab pt denies any chest pain or headache or palpitation hyponatremia1 Pt has mild hypo natremia on recent lab from hospital Pt denies any headache or any mental status change. Pt has low KCL anxiety1 Pt has chronic a nxiety Pt denies any depression or any suicidal thought ,pt denies any crying spells. Pt failed SSRI. Pt takes xanax PRn and doing ok pain1 pt has chronic l ow back pain Pt denies any worsening pain pt denies any loss of bladder control Pt has DDD Pt failed NSAID and ultram. Pt takes norco PRN for pain and doing ok .Pt has mild sciatica and leg numbness. pain Pt has chronic l ow back pain Pt denies any worsening pain pt denies any loss of bladder control Pt has DDD Pt failed NSAID and ultram. Pt takes norco PRN for pain and doing ok .Pt has mild sciatica and leg numbness. anxiety1 Pt has chronic a nxiety Pt denies any depression or any suicidal thought ,pt denies any crying spells. Pt failed SSRI. Pt takes xanax PRn and doing ok adrenal mass Pt had CT done [facility] recently which showed adrenal mass and sleep mass Pt denies any abd pain pain pt has chronic l ow back pain Pt denies any worsening pain pt denies any loss of bladder control Pt has DDD Pt failed NSAID and ultram. Pt takes norco PRN for pain and doing ok .Pt has mild sciatica and leg numbness. anxiety1 Pt has chronic a nxiety Pt denies any depression or any suicidal thought ,pt denies any crying spells. Pt failed SSRI. Pt takes xanax PRn and doing ok PAD Pt had recent CT done in hospital which showed occlusion of right common iliac artery with collateral flows. Pt denies any cold extremity or any numbness or tingling of extremities. Pt denies any claudication Pt does have CAD with stent . HLP Pt has HLP. P ta kes crestor and her lipid profile is very good recently from hospital lab. PT denies any myalgia anxiety1 Pt has chronic a nxiety Pt denies any depression or any suicidal thought ,pt denies any crying spells. Pt failed SSRI. Pt takes xanax PRn and doing ok pain pt has chronic l ow back pain Pt denies any worsening pain pt denies any loss of bladder control Pt has DDD Pt failed NSAID and ultram. Pt takes norco PRN for pain and doing ok .Pt has mild sciatica and leg numbness. chest pain1 Pt had some vagu e chest pain. Pt was admitted to hospital recently along with abd pain and she was evaluated by cardiology and she had benign cardiac echo and cardiac stress test. Pt has mild pulmonary HTN. Pt has old infarct. Pt currently doing ok Pt denies any chest pain. abd pain1 Pt c/o acute ons et of vomiting and diarrhea and stomach pain last and she went to ER and was admitted and she had benign CT scan per pt and she received some IV fluid and she is doing ok now. Pt denies any blood in stool tobacco1 Pt needs LDCT fo r lung CA screening. pt denies any hemoptysis ,sob or cough back pain1 pt has chronic l ow back pain Pt denies any worsening pain pt denies any loss of bladder control Pt has DDD Pt failed NSAID and ultram. Pt takes norco PRN for pain and doing ok .Pt has mild sciatica and leg numbness. anxiety1 Pt has chronic a nxiety Pt denies any depression or any suicidal thought ,pt denies any crying spells. Pt failed SSRI. Pt takes xanax PRn and doing ok HLP Pt told me she i s still on lipitor?? pt told me pharmacy never gave her crestor pain pt has chronic l ow back pain Pt denies any worsening pain pt denies any loss of bladder control Pt has DDD Pt failed NSAID and ultram. Pt takes norco PRN for pain and doing ok anxiety1 Pt has chronic a nxiety Pt denies any depression or any suicidal thought ,pt denies any crying spells. Pt failed SSRI. Pt states that her anxiety is getting worse and she wants to more xanax per day. pain pt has chronic l ow back pain Pt denies any worsening pain pt denies any loss of bladder control Pt has DDD Pt failed NSAID and ultram. Pt takes norco PRN for pain and doing ok HLP Pt has HLP. Pt h as CAD with stent .Pt takes crestor and is doing ok Pt denies any myalgia Her LDL is not at goal due to CAD anxiety1 pt has chronic a nxiety Pt denies any depression or any suicidal thought ,pt denies any crying spells. Pt failed SSRI Pt doing ok with xanax PRn glucose1 Pt has high gluc ose Pt denies any polyuria polydipsia. Pt denies any neuropathy symptoms HLP Pt has HLP pt boyer s high TG Her LDL is high Pt has CAD .Pt takes lipitor 80 mg pain1 pt has chronic l ow back pain Pt denies any worsening pain pt denies any loss of bladder control anxiety1 pt has chronic a nxiety Pt denies any depression or any suicidal thought ,pt denies any crying spells anxiety1 Pt has chronic a nxiety and mild depression. pt denies any suicidal thought. Pt states that she is just stressed and she is not really depressed. Pt takes xanax PRn and she stopped taking wellbutrin and doing ok. Pt denies any crying spells Pt states that her depression is due to stress and she does not think she needs medication. pt denies any suicidal or homicidal thought pain1 Pt has chronic l ow back pain pt denies any worsening pain Pt denies any loss of bladder control. Pt failed NSAID and ultram. Pt has DDD HLP Pt has HLP Pt is on lipitor Pt denies any myalgia pt still has not done lab yet HTN Pt has borderlin e HTn Pt takes coreg .Pt has CAD with stent .Pt denies any chest pain anxiety1 Pt has chronic a nxiety and mild depression. pt denies any suicidal thought. Pt states that she is just stressed and she is not really depressed. Pt takes xanax PRn and she stopped taking wellbutrin and doing ok. Pt denies any crying spells Pt states that her depression is due to stress and she does not think she needs medication. pt denies any suicidal or homicidal thought pain Pt has chronic l ow back pain pt denies any worsening pain Pt denies any loss of bladder control. Pt failed NSAID and ultram. Pt has DDD physical1 Pt needs annual physical. Patient has chronic low back pain. Patient has the DDD. Patient denies any loss of bowel bladder control. Patient take Bruno PRN for pain doing okay. Patient failed NSIA and ultram. Pt also has more anxiety. Patient denies depression or suicidal thoughts. Patient doing ok currently . Patient has osteopenia. Patient takes Prolia and vitamin D and calcium. Patient denies any fracture. Patient has history of coronary artery disease. Patient take Lipitor Coreg. Patient to see cardiology. Patient denies any chest pain. Pt c/o sinus congestion, sore throat, mild productive coughing with clear phlegm, sinus headache, for one week Pt denies any ear pain. Pt denies any fever. Pt denies any sick contact back pain1 Pt has chronic l ow back pain pt denies any worsening pain Pt denies any loss of bladder control. Pt failed NSAID and ultram. Pt has DDD osteopenia1 pt has osteopeni a. Pt takes calcium and D and also tries weight bearing exercise. Pt just had bone density done and she still has osteopenia but seems improving anxiety1 Pt has chronic a nxiety and mild depression. pt denies any suicidal thought. Pt states that she is just stressed and she is not really depressed. Pt takes xanax PRn and she stopped taking wellbutrin and doing ok. Pt denies any crying spells Pt states that her depression is due to stress and she does not think she needs medication. pt denies any suicidal or homicidal thought chrronic pain1 Pt has chronic l ow back pain pt denies any worsening pain Pt denies any loss of bladder control. Pt failed NSAID and ultram. Pt has DDD anxizety1 Pt has chronic a nxiety and mild depression. pt denies any suicidal thought. Pt states that she is just stressed and she is not really depressed. Pt takes xanax PRn and she was started on wellbutrin by cardiology but it is not helping at all and she is not taking it. Pt denies any crying spells Pt states that her depression is due to stress and she does not think she needs medication CAD1 Pt has CAD with stent. Pt sees cardiology. Pt takes coreg and lipitor from cardiology Pt denies any chest pain or sob pt states that she is out of lipitor and her cardiology has not called in for her yet. Pt tried to call cardiology but unable to reach them osteopenia1 Pt has osteopeni a. Pt still has not done bone density yet Pt takes calcium and vitamin D. Pt denies any fx chronic pain1 Pt has chronic l ow back pain pt denies any worsening pain Pt denies any loss of bladder control. Pt has DDD Pt failed NSAID and ultram anxiety1 Pt has chronic a nxiety and depression. pt denies any suicidal thought Pt takes xanax PRn and Wellbutrin and doing ok. Pt denies any crying spells osteopenia1 Pt has osteopeni a. Pt is getting prolia every 6 months from oncology Pt denies any bone pain or fracture chronic pain1 Pt has chronic l ow back pain pt denies any worsening pain Pt denies any loss of bladder control anxiety1 Pt has chronic a nxiety and depression. pt denies any suicidal thought Pt takes xanax PRn and Wellbutrin and doing ok chronic pain1 Pt has chronic l ow back pain pt denies any worsening pain Pt denies any loss of bladder control pt failed NSAID and ultram COPD Pt has CT eviden ce of copd. Pt still smoking Pt denies any hemoptysis, sob or cough CAD Pt has CAD Pt ac tually had stent. Pt denies any chest pain. Pt takes coreg and lipitor. Pt denies any sob. Pt sees cardiology anxiety1 Pt has chronic a nxiety with mild depression. Pt denies any suicidal thought pt denies any crying spells p takes xanax PRn and doing ok. Pt is on wellbutrin now from cardiology Pt feels less depressed. Tobacco1 Pt needs LDCT Pt denies any hemoptysis, coughing or sob. Pt quits smoking anxiety1 Pt has chronic a nxiety. Pt denies any depression or any suicidal thought pt denies any crying spells back pain1 Pt has chronic l ow back pain Pt denies any worsening pain Pt denies any loss of bladder control anxiety1 Pt has chronic a nxiety. Pt denies any depression or any suicidal thought Pt denies any crying spells. Pt doing ok with xanax back pain1 Pt has chronic l ow back pain. Pt denies any worsening pain pt denies any loss of bladder control. Pt failed NSAID and ultram Pt takes norco PRN and doing ok anxiety1 Pt has chronic a nxiety pT denies any depression or any suicidal thought .Pt denies any crying spells. chronic pain1 Pt has chronic l ow back pain. Pt denies any worsening pain pt denies any loss of bladder control. Pt failed NSAID and ultram Pt takes norco PRN and doing ok back pain1 Pt has chronic l ow back pain. Pt denies any worsening pain Pt denies any loss of bladder control. Pt failed NSAID and ultram. Pt has 7/10 pain anxiety1 Pt has chronic a nxiety. Pt denies any depression or any suicidal thought. Pt takes xanax PRN. Pt denies any crying spells anxiety1 Pt has chronic a nxiety Pt denies any depression or any suicidal thought. Pt denies any crying spells back pain1 Pt has chronic l ow back pain due to DDD Pt denies any worsening pain Pt denies any loss of bladder control. Pt failed NSAID and ultram, Pt has 6/10 pain anxiety1 Pt has chronic a nxiety. pt denies any depression or any suicidal thought Pt denies any crying spells chronic pain Pt has chronic l ow back pain. pt denies any worsening pain. Pt denies any loss of bladder control. pt failed NSAID and ultram Nov-15-2018 PHysical Pt needs annual physical. Pt has chronic low back pain and anxiety. pt takes norco and xanax PRN. Pt doing ok pt denies any suicidal or homicidal thought. Pt denies any crying spells. Pt denies any Gi issue. Her fecal globin is ok occult blood1 Pt has guaiac po sitive stool recently. Pt went back to [facility] and was told she already had it done back in november so she does not need it again? Pt denies any GI issue. Pt had normal colonoscopy 2016. anxiety1 Pt has chronic a nxiety. Pt denies any depression or any suicidal thought Pt denies any crying spells Pt takes xanax PRn and doing ok chronic pain Pt has chronic l ow back pain Pt denies any worsening pain Pt has DDD pt has 6/10 pain Pt failed NSAID and ultram chronic pain1 Pt has chronic l ow back pain due to DDD pt denies any worsening pain Pt denies any loss of bladder control. Pt failed NSAID and ultram anxiety1 Pt has chronic a nxiety Pt denies any depression or any suicidal thought pt denies any crying spells glucose1 Pt has borderlin e glucose pt denies any polyuria, polydipsia osteopenia1 Pt has osteopeni a. Pt takes calcium and vitamin D daily and also vitamin D 50,000 unit weekly Pt denies any fx occult blood1 Pt has fecal pos itive stool. pt denies any constipation, change of bowel weight loss, etc. Pt porras snot see any blood in stool Pt denies any abd pain chronic pain1 Pt has chronic l ow back pain Pt doing ok with lower dose of norco Pt has anxiety. Pt takes xanax PRN Pt doing ok with lower dose Pt denies any suicidal or homicidal thought. Pt denies any crying spells CAD1 Pt has CAD with stent. Pt takes coreg and ASA and lipitor Pt sees cardiology Pt denies any chest pain. or sob back pain1 Pt has chronic l ow back pain due to DDD. pt denies any worsening pain Pt denies any loss of bladder control pt has right sciatica. Pt has right leg numbness anxiety1 Pt has chronic a nxiety Pt denies any depression or any suicidal thought. Pt denies any crying spells osteopenia1 Pt has osteopeni a. P takes calcium and D daily and she takes vitamin D 50,000 units weekly pt is trying weight bearing exercise chronic pain Pt has chronic l ow back pain Pt denies any sciatica and or any loss of bladder control Pt has 7/10 pain Pt takes norco PRN for pain Pt failed NSAID and ultram anxiety1 Pt has chronic a nxiety. Pt denies any depression or any suicidal thought. Pt denies any crying spells. Pt takes xanax PRN and doing ok chronic pain Pt has chronic l ow back pain. pt denies any worsening pain pt denies any loss of bladder control anxiety1 Pt has chronic a nxiety. Pt denies any depression nor any suicidal thought. Pt denies any crying spells chronic pain1 Pt has chronic l ow back pain pt denies any worsening toni Pt denies any loss of bladder control. pt responds well to pain meds for pain control anxiety1 Pt has chronic a nxiety Pt denies any depression or any suicidal thought. Pt denies any cyring spells tobacco1 Pt had 30 pack y ear tobacco. Pt quit 5 years ago. pt denies any sob anxiety1 Pt has chronic a nxiety Pt denies any depression or any suicidal thought. Pt denies any cyring spells chronic pain Pt has chronic l ow back pain pt deneis any worsening pain. pt deneis any loss of bladder control Pt takes norco PRN for pain and doing ok. tobacco1 Pt has 30 pack y ear tobacco and she quit 5 years ago. Pt needs annual LDCT back pain1 Pt has chronic l ow back pain pt denies any worsening pain or any loss of bladder control. Pt has 7/10 pain anxiety1 Pt has chronic a nxeity. Pt denies any depression or any suicidal thought. Pt denies any cyring spells emphsema1 Pt has emphysema on Ct scan but she does not have any sob anxiety1 Pt has chronic a nxiety. Pt deneis any depression or any sucidal thought. Pt denies any cyring spells back pain1 Pt has chronic l ow back pain pt deneis any worsening pain any loss of bladder control. Pt has mild sciatica bresat CA1 Pt has left milad st CA and s/p lumpectomy. pt had radiation and chemo. Pt denies any bresat pain Pt is seeing oncoogy now anxiety1 Pt has chronic a nxiety. pt deneis any depression or any suicidal thought. Pt denies any cyring spells back pain1 Pt has chronic l ow back pain pt deneis any worsening pain Pt denies any loss of bladder control. Pt has 7/10 pain anxiety1 Pt has chronic a nxiety Pt deneis any depression or any suicidal thought. Pt denies any cyring spells. Pt takes axnax PRN and doing ok chrnoic pain1 Pt has chronic l ow back pain Pt deneis any worsening pain Pt denies any loss of bladder control. Pt denies any worsenign pain osteopenia1 Pt has osteopeni a. Pt takes calcium and D and she also take prolia once every 6 months Pt doing ok Pt is diong weight bearing exercisae HLP Pt has HLP. Pt t akes lipitor. Pt denies any myalgia PHysical Pt needs annual physical. Pt has chronic low back pain with sciatica and leg numbness. Pt denies any wrosening symptoms Pt has chronic anxiety. Pt denies any depression or any suicidal thought. Pt takes xanax and diong ok Pt has history of left breast s/p right masectomy. Pt is seeing oncology and breast specialist. Pt has CAD with stent and she is on coreg and lipitor Pt denies any chset pain PT denies any other complaints HTN Pt takes coreg. Her BP is slighlty high today. Pt dneies any chest pain or headache. Pt sees cardiology for CAd chronic pain Pt has chornic l ow back pain. Pt ddenies any worsening pain Pt takes norco PRN for pain and doing ok. Pt denie any loss of bladder control anxiety1 Pt has chornic a nxiety. Pt denies any depression or any suicidal thought. Pt denies any cyring spells back pain1 Pt has low back apin. Pt deneis any worsening pain Pt denies any loss of bladder control. anxiety1 Pt has chronic a nxiety. Pt deneis any depression or any suicidal thought. Pt denies any cyring spells PAD1 Pt states that s he has mild PAD. Pt denies any claudication. Pt is seeing cardiology who did tell her she needs surgery but not anymore during her last visit. Pt was told to walk and try to be more active. osteopneia1 Pt has osteopeni a. Pt denies any spontaneous fracture. osteopenia1 Pt has osteopeni a. Pt has been taking calcium and vitamin D and also she is doing weight bearing exercise. Pt denies any fracture anxiety1 Pt has chronic a nxiety Pt deneis any depression or any suicidal thought, Pt denies any crying spells back pain1 Pt has chronic l ow back pain. Pt denies any worsening pain, any loss of bladder cotnrol. 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 Pt denies any rash. now PreDM Pt has hsitory o f insulin resistance pt takes metfomrin and her BG is around 100. Her A1c recnelty is 5.6 Pt has cut off soda and sweet anxiety1 Pt has chronic a nxiety. Pt denies any depression or any suicidal thought Pt denies anyc rying spells marly pain1 Pt has chronic l ow back pain Pt denies any wrosenign pain Pt denies any loss of bladeder control. Pt has 7/10 pain back pain1 Pt has chronic l ow back pain. Pt denies any worsening pain Pt denies any loss of bladder control anxiety1 Pt has chronic a nxiety Pt denies any depression or any suicidal thought. Pt denies any crying spells COPD1 Pt has COPD on c hest CT. No lung nodule pt denies any SOB. Pt no longer smoking hep c Pt has negative hep c and RA testing. back pain1 Pt has chronic l ow back pain Pt denies any scaitcia or any numbness. pt deneis any wrosenign pain anxiety1 Pt has chronic a nxiety Pt denies any depression or any suicidal thought. 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 Pt denies any polyuria, polydipsia. Pt has been diet and exercising back pain1 Pt has chronic l ow back pain. Pt denies any worsening pain Pt denies any loss of bowel ro bladder control anxiety1 Pt has chronic a nxiety PT denies any depression or any suicidal thought. Pt denies any crying spells. back pain1 Pt has chronic l ow back pain pt denies any wrosening pain. Pt denies any loss of bladder control anxiety1 Pt has chronic a nxeity. Pt denies any depression or any suicidal thought pt denies any cyring spells osteopenia1 Pt has osteopnei a Pt takes prolia from oncology per pt. Pt takes calcium and vitamin D tobacco1 Pt quit smoking 3 years ago. Pt had 30 pack year of tobacco. Pt also needs hep C screening chronic pain1 Pt c/o chronic l ow back pain Pt has sciatica pt has leg numbness. Pt denies any worsening pain anxiety1 Pt has chronic a nxiety Pt denies any depression or any suicidal thought Pt denies any crying spells glucose Pt has mild high glucose. Pt takes metformin Her A1c is ok. Pt denies any polyuria, polydipsia PAd Pt had doppeler done which showed mild PAD, especially on right side Pt denies any claudication Pt denies any toe discoloration Pt denies any toe numness or cold toes back pain1 Pt has chronic l ow back pain. Pt denies any worsening pain. Pt denies any loss of bowel or bladder control anxiety1 Pt has chronic a nxiety. Pt denies any depression or any suicidal thought. Pt takes xanax and doing ok. Pt denies any crying spells DM Pt has mild insu tavares resistance. pt takes metformin and doing ok Pt denies any polyuria poydipsia. CAD Pt has coreg and lipitor. Pt sees cardiology. Pt denies any chest pain or headache anxiety1 Pt has chronic a nxiety. Pt denies any depression or any suicidal thought. Pt takes xanax PRN PT denies any cyring spells. Pt weaned herself off paxil. Pt denies any depression anymore Pt feels stressed back pain1 Pt has chronic l ow back pain PT denies ay worsening pain PT denies any loss of bowel or bladder control Pt has 6/10 pain anxiety1 Pt has chronic a nxiety and depression. Pt takes paxil and xanax and doing ok. Pt denies any suiidal or homicdial thought.k Pt denies any crying spells back pain1 Pt has chronic l ow back pain .Pt denies any worsening pain. Pt denies any loss of bowel ro bladder control. Pt has 6/10 pain insulin Pt is mildly ins ulin resistance Pt take metformin .Pt denies any diarrhea. No polyuria, polydipsia Physical Pt needs annual physical. Pt has chronic back pain. pt has 5/10 pain. Pt failed NSAID Pt has mild scaitcia. pt denies any loss of bowel or bladder control. Pt has chronic anxiety and depression. Pt has CAD and HLP Pt has osteopenia. Pt takes calcium and vitamin D. Pt denies any other complaints osteopenia1 Pt has osteopeni a. Pt takes calcium and vitamin D daily. Pt is trying weight bearing exercise CAD pt takes coreg a nd lipitor Pt denies any myalgia. Pt denies any chest pain. Pt sees cardiology back pain1 Pt has chronic l ow back pain. Pt denies any loss of bowel or bladder control. pt denies any worsening pain. Pt has mild scaitica and leg numbness. anxiety1 Pt has chronic a nxiety and depression. Pt takes paxil and xanax. Pt denies any suicidal or homicidal thought. Pt denies any crying spells. back pain Additional infor mation: Pt has chronic low back pain. Pt denies any loss of bowel or bladder control. pt denies any worsening pain. anxiety1 Pt has chronic a nxiety and depression Pt takes paxil and xanax pt denies any suicidal or homicidal thought. Pt denies any crying spells preDM pt is prediabeti c. Pt takes metformin and doing ok Pt denies any polyuria, polydipsia osteopenia1 Pt has osteopeni a. Pt takes calcium and vitamin D and is trying weight bearing exercise. Pt denies any history of fracture back apin1 Pt has chronic l ow back apin. pt denies any loss of bowel or bladder control. Pt denies any wrosening pain. Pt c/o right sciatica. Pt notices mild numnbess right leg but not worse anxiety1 Pt has chronic a nxiety an ddepression. Pt takes paxil and xanax and doing ok. Pt denies any suicidal or homicidal thought back pain1 Pt has chronic l ow back pain. Pt denies any worsening pain. Pt denies any loss of bowel or bladder control anxiety1 Pt has chronic a nxiety and depression. Pt takes paxil and xanax and doing ok. Pt denies any suicidal or homicdial thought. Pt denies any crying spells back pain1 Pt has chronic l ow back pain. Pt denies any loss of bowel or bladder control. Pt denies any worsening pain. Pt has sciatica and right leg numbness. anxiety1 Pt has chronic a nxiety and depression. Pt takes paxil and xanax and doing ok. Pt denies any suicidal or homcidial thought Pt denies any crying spells Pre DM Pt has prediabet ic. Pt is taking metformin now. Pt denies any polyruia, polydipsia. osteopenia Additional infor mation: Pt is taking calcium and vitmain D supplement now. Pt is trying more weight bearing exercise. back pain1 Pt has chornic l ow back pain. Pt denies any loss of bowel or bladder contorl. Pt denies any worsening pain. Pt has constant sharp pain low back area anxiety1 Pt has chronic a nxiety and depression. Pt takes paxil and xanax and doing ok. Pt denies any depression or any suicidal thought. Pt denies any crying spells. osteopenia Additional infor mation: P tis osteopenic. Pt denies any history of spontaneous fracture. Pt denies an bone pain. Anxiety1 Pt has chronic a nxiety and depression. Pt takes paxil and xanax. Pt denies any suicidasl or homicidal thought. Pt has a lot of stress at work and home and she wants to go back to 1 mg xanx. Pt is breast cancer survivor. back pain Additional infor mation: Pt has chronic low back pain. Pt denies any loss of bowel or bladder control. Pt denies any worsening pain. Pt has mild sciatica and numnbess. HLP Pt has HLP. Pt t akes lipitor. pt denies any myalgia preDM Pt is prediabeti c Pt take metformin. Her A1c is normal. Pt denies any polyruia, polydipsia anxiety1 Pt has chronic a nxiety and depression. Pt takes paxil and xanax Pt denies any suicidal or homicidal thought. Pt doing ok. Pt denies any cyring spells back pain1 Pt has chronic l ow back pain .pt c/o right sciatica and right leg numnbess. Pt has 6/10 sharp pain. Pt takes norco for pain. pt failed NSAID insulin resistance Pt has mild i nsulin resistance pt takes metformin and doing ok. Pt denies any hypoglycemia Pt denies any polyuria, polydipsia PHysical Pt needs annual physical. Pt has braast CA and she is getting radiation and she done chemo already. Pt has CAD. Pt is on coreg and lipitor. Pt takes metformin for predm. Pt has chronic LBP Pt denies any worsenign pain. Pt also has anxiety and depression. Pt is taking prozac and xanax from psychiatrist but he no longer takes her insurance. Pt denies any suicidal thought Anxiety Additional infor mation: Pt has chronic anxiety. Pt denies any depression or any suicidal thought. Pt atkes xanax from psychiatrist. back pain Additional infor mation: Pt has chronic LBP. Pt denies any loss of bowel or bladder control. Pt takes pain meds PRN. back pain Additional infor mation: Pt has chronic LBP Pt denies any loss of bowel or bladder control. preDM Pt is prediabeti c. Pt has been taking metformin and is doing ok. Pt denies any abd pain or any nausea, or diarrhea liver Pt had history o f slightly elevated LFT. Pt had negative hepatitis panel back pain Additional infor mation: Pt has chornic LBP pt denies any loss of bowel or bladder control. Pt denies any worsenign pain. LFT LFT ok,. NO hepa titis PreDM Pt has elevated A1c, Pt is prediabetic. Pt is trying to cut down soda and sweet. No polyuria, polydipsia Instructions Date Instruction Additional Infor mation Increase physical activity Relat ed to Chronic pain syndrome Weight management Related to Chr onic pain syndrome Special diet education Related t o Body mass index (BMI) 32.0-32.9, adult Perform monthly self breast examinations. Related to Encntr for general adult medical exam w/o abnormal findings Increase activity. Related to En cntr for general adult medical exam w/o abnormal findings Special diet education Related t o Body mass index (BMI) 32.0-32.9, adult Special diet education Related t o Body mass index (BMI) 32.0-32.9, adult Increase physical activity Relat ed to Chronic pain syndrome Weight management Related to Chr onic pain syndrome Special diet education Related t o Body mass index (BMI) 32.0-32.9, adult Increase physical activity Relat ed to Chronic pain syndrome Weight management Related to Chr onic pain syndrome Special diet education Related t o Body mass index (BMI) 31.0-31.9, adult Special diet education Related t o Body mass index (BMI) 31.0-31.9, adult Increase physical activity Relat ed to Generalized anxiety disorder Weight management Related to Gen eralized anxiety disorder Weight management Related to Gen eralized anxiety disorder Special diet education Related t o Body mass index (BMI) 30.0-30.9, adult Weight management Related to Gen eralized anxiety disorder Increase physical activity Relat ed to Generalized anxiety disorder Special diet education Related t o Body mass index (BMI) 31.0-31.9, adult Special diet education Related t o Body mass index (BMI) 30.0-30.9, adult Increase physical activity Relat ed to Generalized anxiety disorder Weight management Related to Gen eralized anxiety disorder Special diet education Related t o Body mass index (BMI) 30.0-30.9, adult Increase physical activity Relat ed to Generalized anxiety disorder Weight management Related to Gen eralized anxiety disorder Increase physical activity Relat ed to Chronic pain syndrome Weight management Related to Chr onic pain syndrome Special diet education Related t o Body mass index (BMI) 31.0-31.9, adult Special diet education Related t o Body mass index (BMI) 33.0-33.9, adult Increase physical activity Relat ed to Chronic pain syndrome Weight management Related to Chr onic pain syndrome Special diet education Related t o Body mass index (BMI) 32.0-32.9, adult Increase physical activity Relat ed to Chronic pain syndrome Weight management Related to Chr onic pain syndrome Special diet education Related t o Body mass index (BMI) 32.0-32.9, adult Perform monthly self breast examinations. Related to Encntr for general adult medical exam w/o abnormal findings Increase activity. Related to En cntr for general adult medical exam w/o abnormal findings Special diet education Related t o Body mass index (BMI) 33.0-33.9, adult Increase physical activity Relat ed to Chronic pain syndrome Weight management Related to Chr onic pain syndrome Special diet education Related t o Body mass index (BMI) 32.0-32.9, adult Quit smoking Related to Chron ic pain syndrome Special diet education Related t o Body mass index (BMI) 33.0-33.9, adult Weight management Related to Occ ult blood in feces Special diet education Related t o Body mass index (BMI) 32.0-32.9, adult Increase physical activity Relat ed to Coronary artery disease of circle coronary artery without angina pectoris Weight management Related to Cor onary artery disease of circle coronary artery without angina pectoris Weight management Related to Chr onic pain syndrome Special diet education Related t o Body mass index (BMI) 32.0-32.9, adult Increase physical activity Relat ed to Chronic pain syndrome Special diet education Related t o Body mass index (BMI) 31.0-31.9, adult Weight management Related to Chr onic pain syndrome Special diet education Related t o Body mass index (BMI) 31.0-31.9, adult Increase physical activity Relat ed to Chronic pain syndrome Prescribed Activity and Exercise Education Related to Dietary Surveillance and Counseling Prescribed Diet Educ ation/Lifestyle Education Regarding Diet Related to Dietary Surveillance and Counseling Increase physical activity Relat ed to Chronic pain syndrome Weight management Related to Chr onic pain syndrome Prescribed Activity and Exercise Education Related to Dietary Surveillance and Counseling Prescribed Diet Educ ation/Lifestyle Education Regarding Diet Related to Dietary Surveillance and Counseling Increase physical activity Relat ed to Chronic pain syndrome Weight management Related to Chr onic pain syndrome Prescribed Activity and Exercise Education Related to Dietary Surveillance and Counseling Prescribed Diet Educ ation/Lifestyle Education Regarding Diet Related to Dietary Surveillance and Counseling Increase physical activity Relat ed to Chronic pain syndrome Weight management Related to Chr onic pain syndrome Prescribed Activity and Exercise Education Related to Dietary Surveillance and Counseling Prescribed Diet Educ ation/Lifestyle Education Regarding Diet Related to Dietary Surveillance and Counseling Increase physical activity Relat ed to Generalized anxiety disorder Weight management Related to Gen eralized anxiety disorder Prescribed Diet Educ ation/Lifestyle Education Regarding Diet Related to Dietary Surveillance and Counseling Increase physical activity Relat ed to Generalized anxiety disorder Weight management Related to Gen eralized anxiety disorder Prescribed Activity and Exercise Education Related to Dietary Surveillance and Counseling Prescribed Activity and Exercise Education Related to Dietary Surveillance and Counseling Prescribed Diet Educ ation/Lifestyle Education Regarding Diet Related to Dietary Surveillance and Counseling Perform monthly self breast examinations. Related to Encntr for general adult medical exam w/o abnormal findings Quit smoking. Related to Encnt r for general adult medical exam w/o abnormal findings Increase activity. Related to En cntr for general adult medical exam w/o abnormal findings Prescribed Activity and Exercise Education Related to Dietary Surveillance and Counseling Prescribed Diet Educ ation/Lifestyle Education Regarding Diet Related to Dietary Surveillance and Counseling Increase physical activity Relat ed to Chronic pain syndrome Weight management Related to Chr onic pain syndrome Prescribed Diet Educ ation/Lifestyle Education Regarding Diet Related to Dietary Surveillance and Counseling Increase physical activity Relat ed to Oth disrd of bone density and structure, multiple sites Weight management Related to Oth disrd of bone density and structure, multiple sites Increase physical activity Relat ed to Oth disrd of bone density and structure, multiple sites Weight management Related to Oth disrd of bone density and structure, multiple sites Prescribed Activity and Exercise Education Related to Dietary Surveillance and Counseling Prescribed Activity and Exercise Education Related to Dietary Surveillance and Counseling Prescribed Diet Educ ation/Lifestyle Education Regarding Diet Related to Dietary Surveillance and Counseling Prescribed Diet Educ ation/Lifestyle Education Regarding Diet Related to Dietary Surveillance and Counseling Prescribed Activity and Exercise Education Related to Dietary Surveillance and Counseling Prescribed Activity and Exercise Education Related to Dietary Surveillance and Counseling Prescribed Diet Educ ation/Lifestyle Education Regarding Diet Related to Dietary Surveillance and Counseling Prescribed Activity and Exercise Education Related to Dietary Surveillance and Counseling Prescribed Diet Educ ation/Lifestyle Education Regarding Diet Related to Dietary Surveillance and Counseling Prescribed Activity and Exercise Education Related to Dietary Surveillance and Counseling Prescribed Diet Educ ation/Lifestyle Education Regarding Diet Related to Dietary Surveillance and Counseling Prescribed Activity and Exercise Education Related to Dietary Surveillance and Counseling Prescribed Diet Educ ation/Lifestyle Education Regarding Diet Related to Dietary Surveillance and Counseling Prescribed Activity and Exercise Education Related to Dietary Surveillance and Counseling Prescribed Diet Educ ation/Lifestyle Education Regarding Diet Related to Dietary Surveillance and Counseling Prescribed Activity and Exercise Education Related to Dietary Surveillance and Counseling Prescribed Diet Educ ation/Lifestyle Education Regarding Diet Related to Dietary Surveillance and Counseling Prescribed Activity and Exercise Education Related to Dietary Surveillance and Counseling Prescribed Diet Educ ation/Lifestyle Education Regarding Diet Related to Dietary Surveillance and Counseling Prescribed Activity and Exercise Education Related to Dietary Surveillance and Counseling Prescribed Diet Educ ation/Lifestyle Education Regarding Diet Related to Dietary Surveillance and Counseling Prescribed Activity and Exercise Education Related to Dietary Surveillance and Counseling Prescribed Diet Educ ation/Lifestyle Education Regarding Diet Related to Dietary Surveillance and Counseling Prescribed Activity and Exercise Education Related to Dietary Surveillance and Counseling Prescribed Diet Educ ation/Lifestyle Education Regarding Diet Related to Dietary Surveillance and Counseling Prescribed Activity and Exercise Education Related to Dietary Surveillance and Counseling Prescribed Diet Educ ation/Lifestyle Education Regarding Diet Related to Dietary Surveillance and Counseling Prescribed Activity and Exercise Education Related to Dietary Surveillance and Counseling Prescribed Diet Educ ation/Lifestyle Education Regarding Diet Related to Dietary Surveillance and Counseling Prescribed Activity and Exercise Education Related to Dietary Surveillance and Counseling Prescribed Diet Educ ation/Lifestyle Education Regarding Diet Related to Dietary Surveillance and Counseling Prescribed Diet Educ ation/Lifestyle Education Regarding Diet Related to Dietary Surveillance and Counseling Prescribed Activity and Exercise Education Related to Dietary Surveillance and Counseling Physical activity counseling Rel ated to Dietary surveillance counseling Decrease caloric intake Related to Dietary surveillance counseling Physical activity counseling Rel ated to Dietary surveillance counseling Decrease caloric intake Related to Dietary surveillance counseling Physical activity counseling Rel ated to Dietary surveillance counseling Decrease caloric intake Related to Dietary surveillance counseling Physical activity counseling Rel ated to Dietary surveillance counseling Decrease caloric intake Related to Dietary surveillance counseling Dietary counseling Related to Di etary surveillance counseling Decrease caloric intake Related to Dietary surveillance counseling Dietary counseling Related to Di etary surveillance counseling Decrease caloric intake Related to Dietary surveillance counseling Dietary counseling Related to Di etary surveillance counseling Decrease caloric intake Related to Dietary surveillance counseling Dietary counseling Related to Di etary surveillance counseling Decrease caloric intake Related to Dietary surveillance counseling Dietary counseling Related to Di etary surveillance counseling Decrease caloric intake Related to Dietary surveillance counseling Decrease caloric intake Related to Dietary surveillance counseling Dietary counseling Related to Di etary surveillance counseling Dietary counseling Related to Di etary surveillance counseling Decrease caloric intake Related to Dietary surveillance counseling Dietary counseling Related to Di etary surveillance counseling Decrease caloric intake Related to Dietary surveillance counseling Dietary counseling Related to Di etary surveillance counseling Decrease caloric intake Related to Dietary surveillance counseling Dietary counseling Related to Di etary surveillance counseling Decrease caloric intake Related to Dietary surveillance counseling Dietary counseling Related to Di etary surveillance counseling Decrease caloric intake Related to Dietary surveillance counseling Decrease caloric intake Related to Dietary surveillance counseling Dietary counseling Related to Di etary surveillance counseling Assessments Type Assessment Date assessment Encounter for genera l adult medical examination without abnormal findings Mental Status Date Cognitive Assessment Orientation - Hilham ed to time, place, person, situation.
--- OUTSIDE RECORDS SUMMARY | 2024-10-04 09:56 | XMS_ITS | Encounter Summary ---
Author Organization [facility] Address [address] [facility] [place] [address] Phone Care Team Providers Care Sleeve Turner Name Role Phone Tim Whitten Primary Care Provider [phone] Reason for Visit * Reason Comments Medication Refill Encounter Details Date Type Department Care Team (Late st Contact Info) Description 04/23/2021 Refill [facility] Oncology Services [address] [place] [address] Sanchez Phillips MD [address] [place] [address] Medication Refill Social History Tobacco [...] on file Sexual Orientation Not on file COVID-19 Exposure Response Date Recorded In the last month, have you been in contact with someone who was confirmed or suspected to have Coronavirus / COVID-19? 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 encounter Miscellaneous Notes * Telephone Encounter - Leanne Morris RN - 04/23/2021 2:51 PM CST Refilled Arimidex OMY TEACHER documented in this encounter Plan of Treatment Upcoming Encounters Date Type Department Care Team (Late st Contact Info) Description 11/17/2024 10:15 AM CDT [facility]ointment [facility] M[facility] [address] [place] [address] Sarah Palafox, COST ESTIMATING ENGINEER, BRAKE LINER [address] [place] [address] Discharge Disposition: Discharged to home or Selfcare 11/17/2024 10:45 AM CDT Appointment [facility] Mammography [address] [place] [address] Sarah Palafox, COST ESTIMATING ENGINEER, BRAKE LINER [address] [place] [address] Discharge Disposition: Discharged to home or Selfcare 12/14/2024 2:40 PM CDT Office Visit [facility] Oncology Services [address] [place] [address] Sanchez Phillips MD [address] [place] [address] Discharge Disposition: Discharged to home or Selfcare 12/14/2024 3:00 PM CDT Clinical Support [facility] Oncology Services [address] [place] [address] Sanchez Phillips MD [address] [place] [address] Discharge Disposition: Discharged to home or Selfcare documented as of this encounter Visit Diagnoses Diagnosis 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
--- OUTSIDE RECORDS SUMMARY | 2024-10-04 09:56 | XMS_ITS | Encounter Summary ---
Author Organization [facility] Address [address] [facility] [place] [address] Phone Care Team Providers Care Control Clerk Repairs Name Role Phone Tim Whitten Primary Care Provider [phone] Reason for Visit * Reason Comments Medication Refill Encounter Details Date Type Department Care Team (Late st Contact Info) Description 07/14/2023 Refill [facility] Oncology Services [address] [place] [address] Sanchez Phillips MD [address] [place] [address] Medication Refill Social History Tobacco [...] Telephone Encounter - Leanne Morris RN - 07/14/2023 1:01 PM CDT Refilled Arimidex per Alan last f/u note. documented in this encounter Plan of Treatment Upcoming Encounters Date Type Department Care Team (Late st Contact Info) Description 11/17/2024 10:15 AM CDT Appointment [facility] Mammography [address] [place] [address] Sarah Palafox, FITTER/WELDER, JEWELRY RACKER [address] [place] [address] Discharge Disposition: Discharged to home or Selfcare 11/17/2024 10:45 AM CDT Appointment [facility] Mammography [address] [place] [address] Sarah Palafox, FITTER/WELDER, JEWELRY RACKER [address] [place] [address] Discharge Disposition: Discharged to home or Selfcare 12/14/2024 2:40 PM CDT Office Visit [facility] Oncology Services [address] [place] [address] Sanchez Phillips MD [address] [place] [address] Discharge Disposition: Discharged to home or Selfcare 12/14/2024 3:00 PM CDT Clinical Support [facility] Oncology Services [address] [place] [address] Sanchez Phillips MD [address] [place] [address] Discharge Disposition: Discharged to home or Selfcare documented as of this encounter Visit Diagnoses Diagnosis Carcinoma of upper-inner quadrant of left breast in female, estrogen receptor positive (HCC) documented in this encounter Care Teams Control Clerk Repairs Relationship Specialty Start Date End Date Tim Whitten [address] [place] [address] PCP - General Family Medicine 05/18/15 documented as of this encounter
--- OUTSIDE RECORDS SUMMARY | 2024-10-04 09:56 | XMS_ITS | Encounter Summary ---
Author Organization [facility] Address [address] [place] [address] Phone Care Team Providers Care Electronic Publishing Specialist Name Role Phone Tim Whitten Primary Care Provider [phone] Reason for Visit * Reason Comments Medication Refill Encounter Details Date Type Department Care Team (Late st Contact Info) Description 09/25/2021 Refill [facility] Oncology Services [address] [place] [address] Sanchez Phillips MD [address] [place] [address] Medication Refill Social History Tobacco [...] encounter Miscellaneous Notes * Telephone Encounter - Radha Castillo RN - 09/25/2021 4:52 PM CDT Refilled Anastrozole documented in this encounter Plan of Treatment Upcoming Encounters Date Type Department Care Team (Late st Contact Info) Description 11/17/2024 10:[address] [facility] Mammography [address] [place] [address] Sarah Palafox, VICE PRESIDENT QUALITY ASSURANCE, MEDICAL OFFICE ADMINISTRATOR [address] [place] [address] Discharge Disposition: Discharged to home or Selfcare 11/17/2024 10:[address] [facility] Mammography [address] [place] [address] Sarah Palafox, VICE PRESIDENT QUALITY ASSURANCE, MEDICAL OFFICE ADMINISTRATOR [address] [place] [address] Discharge Disposition: Discharged to home or Selfcare 12/14/2024 2:40 PM CDT Office Visit [facility] Oncology Services [address] [place] [address] Sanchez Phillips MD [address] [place] [address] Discharge Disposition: Discharged to home or Selfcare 12/14/2024 3:00 PM CDT Clinical Support [facility] Oncology Services [address] [place] [address] Sanchez Phillips MD [address] [place] [address] Discharge Disposition: Discharged to home or Selfcare documented as of this encounter Visit Diagnoses Diagnosis Carcinoma of upper-inner quadrant of left breast in female, estrogen receptor positive (HCC) documented in this encounter Care Teams Electronic Publishing Specialist Relationship Specialty Start Date End Date Tim Whitten [address] [place] [address] PCP - General Family Medicine 05/18/15 documented as of this encounter
--- OUTSIDE RECORDS SUMMARY | 2024-10-04 09:56 | XMS_ITS | Clinical Summary ---
Author Organization [facility] Address [address] [place] [address] Care Team Providers Care Die Try Out Worker Name Role Phone Unavailable Primary Care Provider Unavailabl e Source Comments [facility] [employer],non-owned Affiliates and Associated Physician Practices is amultiple site organization consisting of ambulatory clinics and hospital sitesin [place], [place], [place] and [place]. This disclosure is being madepursuant to the Care Everywhere program and may not contain all information available regarding this patient. 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 Gender Identity Not on file Sexual Orientation Not on file Plan of Treatment Health Maintenance Due Date Last Done Comments BONE DENSITY TESTING 1959 COLOGUARD (AGES 45-75) - COL ON CA SCREENING 1959 COLON MONITORING 1959 COLONOSCOPY - COLON CA SCREENING 1959 CT COLONOGRAPHY - COLON CA SCREENING 1959 Colorectal Cancer Screening 1959 FIT - COLON CA SCREENING 1959 FLEX SIG - COLON CA SCREENING 1959 LIPID TESTING 1959 MAMMOGRAM 1959 HIV SCREENING 08/04/1974 HEPATITIS C SCREENING 07/31/1977 DTAP/TDAP/TD VACCINES (1 - Tdap) 08/04/1978 PNEUMOCOCCAL VACCINE 50+ (1 of 1 - PCV) 08/04/2009 ZOSTER VACCINE (1 of 2) 08/04/2009 COVID-19 VACCINE ( - 2023-2 5 season) 2023 DEPRESSION SCREENING 04/06/2024 INFLUENZA VACCINE (Season Ended) 2024 Respiratory Syncytial Virus (RSV) Vaccine Pt: or over 60 yrs (1 - 1-dose 75+ series) 08/04/2034 HEPATITIS B VACCINE Aged Out No longe r eligible based on patient's age to complete this topic HIB VACCINE Aged Out No longer eligi ble based on patient's age to complete this topic HPV VACCINE Aged Out No longer eligi ble based on patient's age to complete this topic MENINGOCOCCAL (Group B) VACC INE SHARED DECISION-MAKING Aged Out No longer eligibl e based on patient's age to complete this topic MENINGOCOCCAL GROUPS A/C/Y/W VACCINE Aged Out No longer eligible b ased on patient's age to complete this topic
--- OUTSIDE RECORDS SUMMARY | 2024-10-04 09:56 | XMS_ITS | Encounter Summary ---
Author Organization [facility] Address [address] [facility] [place] [address] Phone Care Team Providers Care Packing Machine Pilot Can Router Name Role Phone Tim Whitten Primary Care Provider [phone] Reason for Visit * Reason Comments Medication Refill Encounter Details Date Type Department Care Team (Late st Contact Info) Description 11/17/2020 Refill [facility] Oncology Services [address] [place] [address] Sanchez Phillips MD [address] [place] [address] Medication Refill Social History Tobacco [...] have Coronavirus / COVID-19? No / Unsure 10/23/2020 1:51 PM CDT documented as of this encounter Miscellaneous Notes * Telephone Encounter - Radha Castillo RN - 11/19/2020 1:37 PM CDT Anastrozole documented in this encounter Plan of Treatment Upcoming Encounters Date Type Department Care Team (Late st Contact Info) Description 11/17/2024 10:15 AM CDT [facility] [address] [place] [address] Sarah Palafox, FISH BAIT PROCESSING SUPERVISOR, SIZE PAINTER [address] [place] [address] Discharge Disposition: Discharged to home or Selfcare 11/17/2024 10:45 AM CDT [facility] [address] [place] [address] Sarah Palafox, FISH BAIT PROCESSING SUPERVISOR, SIZE PAINTER [address] [place] [address] Discharge Disposition: Discharged to home or Selfcare 12/14/2024 2:40 PM CDT [facility] [address] [place] [address] Sanchez Phillips MD [address] [place] [address] Discharge Disposition: Discharged to home or Selfcare 12/14/2024 3:00 PM CDT Clinical Support [facility] Oncology Services [address] [place] [address] Sanchez Phillips MD [address] [place] [address] Discharge Disposition: Discharged to home or Selfcare documented as of this encounter Visit Diagnoses Diagnosis Carcinoma of upper-inner quadrant of left breast in female, estrogen receptor positive (HCC) documented in this encounter Care Teams Packing Machine Pilot Can Router Relationship Specialty Start Date End Date Tim Whitten [address] [place] [address] PCP - General Family Medicine 05/18/15 documented as of this encounter
--- OUTSIDE RECORDS SUMMARY | 2024-10-04 09:56 | XMS_ITS | Encounter Summary ---
Author Organization [facility] Address [address] [facility] [address] Phone Care Team Providers Care Wharf Operator Name Role Phone Tim Whitten Primary Care Provider [phone] Reason for Visit * Reason Comments Medication Refill Encounter Details Date Type Department Care Team (Late st Contact Info) Description 01/09/2023 Refill [facility] Oncology Services [address] [place] [address] Sanchez Phillips MD [address] [place] [address] Medication Refill Social History Tobacco [...] Telephone Encounter - Leanne Morris RN - 01/09/2023 4:05 PM CDT Refilled Anastrazole per last f/u note. documented in this encounter Plan of Treatment Upcoming Encounters Date Type Department Care Team (Late st Contact Info) Description 11/17/2024 10:15 AM CDT Appointment [facility] Mammography [address] [place] [address] Sarah Palafox, CABLE INSTALLER, ACCOUNTS PAYABLE PROCESSOR [address] [place] [address] Discharge Disposition: Discharged to home or Selfcare 11/17/2024 10:45 AM CDT Appointment [facility] Mammography [address] [place] [address] Sarah Palafox, CABLE INSTALLER, ACCOUNTS PAYABLE PROCESSOR [address] [place] [address] Discharge Disposition: Discharged to home or Selfcare 12/14/2024 2:40 PM CDT Office Visit [facility] Oncology Services [address] [place] [address] Sanchez Phillips MD [address] [place] [address] Discharge Disposition: Discharged to home or Selfcare 12/14/2024 3:00 PM CDT Clinical Support [facility] Oncology Services [address] [place] [address] Sanchez Phillips MD [address] [place] [address] Discharge Disposition: Discharged to home or Selfcare documented as of this encounter Visit Diagnoses Diagnosis Carcinoma of upper-inner quadrant of left breast in female, estrogen receptor positive (HCC) documented in this encounter Care Teams Wharf Operator Relationship Specialty Start Date End Date Tim Whitten [address] [place] [address] PCP - General Family Medicine 05/18/15 documented as of this encounter
== END 2024-10-04 09:43 | disposition home or self-care (01) ==
PROVIDERS: Visit Provider Emergency Medicine
DX: Z12.2 Encounter for screening for malignant neoplasm of respiratory organs (principal); Z87.891 Personal history of nicotine dependence
CPT/HCPCS: 71271